=== PATIENT | female | born 1935 | race Two or more races ===

== ENCOUNTER 2024-12-18 06:56 | Inpatient (IN) | payer MEDICAID, SELFPAY ==
[2024-12-18] VITALS (14 sets, daily range): BP systolic 122–162; BP diastolic 51–108; PULSE 120–139; RESP 21–33; TEMP 36.1–37.2; O2SAT 72–97; BMI 27.3
--- NOTE | 2024-12-18 07:19 | XR_ITS ---
Examination: AP chest single view TECHNIQUE: AP portable upright chest single view Exam date and time: Every 2024 0736 hours INDICATIONS: Chest pain today. FINDINGS: Mild heart failure Moderate enlargement cardiac contour Prominent vascular congestion Early perihilar edema Consider superimposed pneumonia at the lung bases Significant right pleural effusion IMPRESSION: Mild heart failure Consider superimposed pneumonia at the lung bases
--- NOTE | 2024-12-18 07:19 | EKG_ITS ---
[facility] Test Date: 2024-12-18 Pat Name: MELVIN GASPAR Department: Room: - Gender: Female Assistant Administrator: : [id number] Requested By: Dano Kramer (CHANTAL) Order Number: [id number] Reading MD: aDno Kramer ([employer]) Measurements Intervals [place] Rate: 137 P: CO: QRS: 84 QRSD: 91 T: 74 QT: 318 QTc: 482 Interpretive Statements ATRIAL FLUTTER/TACHYCARDIA WITH RAPID VENTRICULAR RESPONSE MODERATE ST DEPRESSION [0.05+ mV ST DEPRESSION] No previous ECG available for comparison /store/S0/[id number]/[id number].pdf
--- NOTE | 2024-12-18 07:34 | EDNOTE_ITS ---
ED Weakness RME/HPI General Chief complaint: General Adult/Misc Complain Stated complaint: CHEST PAIN Time Seen by Provider: 12/18/24 07:29 Arrival date/time: 12/18/24 06:56 RME / HPI RME / HPI Narrative: 89 year old female presents to the ED for evaluation of feeling unwell. Reports feeling dizzy, I can't see well , and generalized weakness beginning at 06:30 AM today. Daughter at bedside reports patient does use nocturnal supplemental oxygen, setting unknown, and a nebulizer machine once everyday. Daughter denies increase in nebulizer usage. Patient denies any fevers, chills, sweats, headache, cough, abdominal pain, vomiting, diarrhea, or urinary symptoms. Related Data Allergies Allergy/AdvReac Type Severity Reaction Status Date / Time No Known Allergies Allergy Verified 12/18/24 06:58 Review of Systems Review of Systems Narrative Review of Systems: Gen: No fever, no chills, +feeling unwell, +generalized weakness EYES: No discharge, + I cant see well , no pain HEENT: No ear pain, no congestion, no sore throat PULM: no shortness of breath, no cough, no congestion CV: No chest pain, no palpitations, no chest tightness GI: No nausea, no vomiting, no diarrhea, no pain, no constipation : No frequency, no urgency,? no dysuria Musc/skel: No joint pain, no back pain Skin: No rash, no ecchymosis, no lesions Neuro: No headache Past Medical History Past Medical History CARDIAC: Positive Cardiac Disorders, Cardiac Arrhythmia, Atrial Fibrillation, Congestive Heart Failure and Hypertension RESPIRATORY: Positive Respiratory Disorders, Chronic Obstructive Pulmonary Disease (COPD) and Sleep Apnea GENITOURINARY: Positive Renal Disease ENDOCRINE: Positive Diabetes Mellitus Type 2 Social History SMOKING STATUS: Never smoker ED Exam Narrative Physical exam: GENERAL APPEARANCE: AxOx4, tachypneic, shallow breaths, saturating 87-88% on room air. HEENT: NC, AT. MMM. EOMI, clear conjunctiva, oropharynx clear. NECK: Supple without lymphadenopathy. No stiffness or restricted ROM. HEART: Normal rate and regular rhythm, normal S1/S1, no m/r/g LUNGS: Diminished breath sounds, lobo and expiratory wheezing, patient taking shallow breaths, tachypneic ABDOMEN: Soft, nontender, nondistended with good bowel sounds heard. BACK: No midline C/T/L spine pain or deformity, No CVAT, no obvious deformity. EXTREMITIES: Without cyanosis, clubbing or edema. MUSCULOSKELETAL: FROM of all major joints, no chest tenderness NEUROLOGICAL: Grossly nonfocal. Alert and oriented, moving all 4 extremities. CN not formally tested but appear grossly intact. Skin: Warm and dry without any rash. Course Course Course Narrative: chest xray ordered to help determine etiology of chest pain. Quality Measures none Orders Category Date Time Status COVID-19 Screening Questionnaire NOW Care 12/18/24 11:54 Active Track Man NOW Care 12/18/24 07:19 Active Decision to Admit X1 Care 12/18/24 11:54 Active EKG (ED ONLY) *Do not use* NOW Care 12/18/24 07:19 Completed Insert IV NOW Care 12/18/24 07:19 Active EKG (ED Only) Stat Exams 12/18/24 07:19 Draft XR chest 1V portable Stat Exams 12/18/24 07:19 Completed BNP [B-Type Natriuretic Peptide] Stat Lab 12/18/24 10:50 Completed Blood Culture (Lab) Stat Lab 12/18/24 12:05 Received CBC Stat Lab 12/18/24 10:50 Completed CMP [Comprehensive Metabolic Panel] Stat Lab 12/18/24 10:50 Completed Troponin I Stat Lab 12/18/24 10:50 Completed ALBUTEROL RT 0.5ml [Proventil Rt 0.5ml] Med 12/18/24 07:30 Discontinued 10 mg INH X1 ONE Ipratropium [place] Rt Zhane [Atrovent Rt Zhane] Med 12/18/24 07:30 Discontinued 1 mg INH X1 ONE Sodium Chloride Rt Zhane 0.9% [NS Rt Zhane 0.9%] Med 12/18/24 07:30 Active 3 ml INH PRN PRN cefTRIAXone/D5w 1gm IV premix [Rocephin/D5w 1gm IV Med 12/18/24 11:53 Discontinued premix] 50 ml IV X1 predniSONE Med 12/18/24 07:30 Discontinued 60 mg PO X1 ONE Vital Signs Vital signs: Vital Signs Temperature 98.1 F 12/18/24 07:22 Pulse Rate 138 H 12/18/24 07:22 Respiratory Rate 24 H 12/18/24 07:22 Blood Pressure 162/92 H 12/18/24 07:22 Pulse Oximetry (%) 72 L 12/18/24 07:22 Oxygen Delivery Method Room Air 12/18/24 07:22 Pulse ox is 72% on room air which is hypoxic. Weakness MDM Narrative MDM Narrative:: Anne Houser am scribing for and in the presence of Dr. Stephenson. Patient data External records reviewed:: [facility] previous records (Per EMR, no previous visits for review ) Clinical information provided by:: patient and family (Daughter adds to hpi) Social determinants that could affect healthcare access:: none Patient has the following chronic illnesses:: HTN, DM, COPD How is presenting disease/condition affected by chronic disease/condition?: exacerbated by Evaluation data The following diagnostics were reviewed and interpreted by me:: lab results, radiology exam(s) and EKG tracing(s) Lab and/or radiology exams considered but not ordered:: None Interpretation Summary: Ordering Physician: Nia RAMIREZ)Dano NP Date of Service: 12/18/24 Procedure(s): XR chest 1V portable Accession Number(s): [id number] cc: Nia RAMIREZ),Dano CORNEJO; Michael Olvera MD; NO PRIMARY/FAMILY,PHYSICIAN~ Examination: AP chest single view TECHNIQUE: AP portable upright chest single view Exam date and time: Every 2024 hours INDICATIONS: Chest pain today. FINDINGS: Mild heart failure Moderate enlargement cardiac contour Prominent vascular congestion Early perihilar edema Consider superimposed pneumonia at the lung bases Significant right pleural effusion IMPRESSION: Mild heart failure Consider superimposed pneumonia at the lung bases Dictated By: Michael Olvera MD Signed By: <Electronically signed by Michael Olvera MD in OV> 12/18/24 1211 Medications / Prescriptions Medications or Prescriptions considered but not ordered:: None Medication administrations:: Medication Administration History Acetaminophen (Acetaminophen 325 Mg Tablet) 650 mg PO Q6H PRN PRN Reason: Fever >101.5 Stop: 01/17/25 12:55 Acetaminophen (Acetaminophen 325 Mg Tablet) 650 mg PO Q6H PRN PRN Reason: PAIN SCALE 1-3 (mild Stop: 01/17/25 12:55 Dextrose (Dextrose 50%-Water Inj 50 Ml Syringe) 25 ml IV Q15MIN PRN PRN Reason: BG 50-70 responsive npo pt Stop: 01/17/25 13:12 Dextrose (Dextrose 50%-Water Inj 50 Ml Syringe) 50 ml IV Q15MIN PRN PRN Reason: BG <50 OR BG <70 & pt unresponsive Stop: 01/17/25 13:12 Glucagon (Glucagon Inj 1 Mg Vial) 1 mg IM Q15MIN PRN PRN Reason: BG <70, and no IV access Heparin Sodium (Porcine) (Heparin Sod Inj 5000 Unit/Ml Vial) 5,000 unit SC Q12HR SARA Stop: 01/01/25 13:14 Ceftriaxone Sodium/Dextrose (Rocephin/D5w 1gm Iv Premix) 50 mls @ 100 mls/hr IV QDAY SARA Stop: 12/26/24 08:59 Last Admin: 12/18/24 13:11 Dose: Not Given Documented By: JACKIE Non-Admin Reason: Duplicate Medication on eMAR Azithromycin 500 mg/ Sodium (Chloride) 250 mls @ 250 mls/hr IV QDAY SARA Stop: 12/26/24 08:59 Azithromycin 500 mg/ Sodium (Chloride) 250 mls @ 250 mls/hr IV X1 ONE Stop: 12/18/24 14:14 Magnesium Hydroxide (Milk Of Magnesia Susp 30 Ml Udc) 30 ml PO QDAY PRN; Protocol PRN Reason: CONSTIPATION Stop: 01/17/25 12:55 Ondansetron HCl (Ondansetron Inj 2 Mg/Ml Inj 2 Ml) 4 mg IV Q6H PRN; Protocol PRN Reason: NAUSEA OR VOMITING Stop: 01/17/25 12:55 Sodium Chloride (Sodium Chloride Rt Zhane 0.9% 3 Ml Nebu) 3 ml INH PRN PRN PRN Reason: SOLN Stop: 01/17/25 07:29 Discontinued Medications Albuterol (Albuterol Rt 2.5 Mg/0.5 Ml Nebu) 10 mg INH X1 ONE Stop: 12/18/24 07:31 Last Admin: 12/18/24 07:53 Dose: 10 mg Documented By: NEISHA Ceftriaxone Sodium/Dextrose (Rocephin/D5w 1gm Iv Premix) 50 mls @ 100 mls/hr IV X1 ONE Stop: 12/18/24 12:22 Last Admin: 12/18/24 13:08 Dose: 100 mls/hr Documented By: JACKIE Ipratropium [place] (Ipratropium Rt 0.5 Mg/ 2.5 Ml Nebu) 1 mg INH X1 ONE Stop: 12/18/24 07:31 Last Admin: 12/18/24 07:54 Dose: 1 mg Documented By: NEISHA Prednisone (Prednisone 20 Mg Tablet) 60 mg PO X1 ONE Stop: 12/18/24 07:31 Last Admin: 12/18/24 07:44 Dose: 60 mg Documented By: JACKIE See above Consultations Consultation(s) initiated? (list below): Yes Consultation #1 (Physician, Specialty, Details): I spoke with hospitalist Dr. Aguila. Discussed patients PMHx, HPI, ED course, exam findings, labs, and radiology results. The hospitalist agree to accept the patient for admission. Time: 11:50 Diagnosis Weakness Differential Diagnosis: acute myocardial infarction, anemia, hypoglycemia, hypothyroidism, sepsis and dehydration Most likely diagnosis given after review of the tests above:: COPD exacerbation Pleural effusion Acute bronchitis Admission Indicated Admission indicated?: indicated Admission Request Was there a request for admission?: Yes Admission Attestation Admission request attestation: Discussed case with [] from Hospitalist service regarding admission. Discussed patients ED course, exam findings, labs, and radiology results. The Hospitalist [agrees,declines] to accept the patient for admission. Disposition Plan Disposition Plan: Admit Discharge Plan Plan Patient Disposition: Admit Acute Care w/in Hospital Problem List Clinical Impression: COPD exacerbation, Pleural effusion, Acute bronchitis
[2024-12-18] MEDS: predniSONE 20 MG TABLET 60 MG PO (07:44)
[2024-12-18] MEDS: ALBUTEROL RT 2.5 MG/0.5 ML NEBU 10 MG INH (07:53)
[2024-12-18] MEDS: IPRATROPIUM RT 0.5 MG/ 2.5 ML NEBU 1 MG INH (07:54)
[2024-12-18 11:07] LABS: Basophils % (Auto) 0 % (0-2.5); Eosinophils % (Auto) 0 % (0-10); Hematocrit 39.1 % (36.0-46.0); Hemoglobin 12.7 g/dL (12.0-16.0); Immature Granulocytes % (Auto) 1 % (0-0); Immature Granulocytes Auto 0.05 Thou/mm3 (0.00-0.00); Lymphocytes # (Auto) 0.7 Thou/mm3 (1.0-4.8); Lymphocytes % (Auto) 9 % (10-50); Mean Corpuscular HGB Conc 32.5 g/dl (31.0-37.0); Mean Corpuscular Hemoglobin 32.2 pg (25.0-35.0); Mean Corpuscular Volume 99 fL (80-100); Monocytes # (Auto) 0.3 Thou/mm3 (0.0-0.8); Monocytes % (Auto) 5 % (0-12); Neutrophils # (Auto) 5.8 Thou/mm3 (1.8-7.7); Neutrophils % (Auto) 85 % (37-80); Nucleated Red Blood Cell # 0.02 Thou/mm3 (0.00-0.00); Nucleated Red Blood Cell % 0 /100 WBC (0); Platelet Count 263 Thou/mm3 (140-440); RDW Standard Deviation 54.5 fL (36.4-46.3); Red Blood Count 3.95 Miln/mm3 (4.00-5.20); White Blood Count 6.9 Thou/mm3 (3.6-11.0)
[2024-12-18 11:22] LABS: B-Type Natriuretic Peptide 329 pg/mL (0-100)
[2024-12-18 11:26] LABS: Alanine Aminotransferase 26 U/L (10-49); Albumin, Serum 4.1 gm/dL (3.4-4.8); Albumin/Globulin Ratio 1.4 (1.2-2.2); Alkaline Phosphatase 64 U/L (46-116); Anion Gap 7 (7-16); Aspartate Amino Transferase 26 U/L (0-34); BUN/Creatinine Ratio 23 Ratio (12-20); Bilirubin,Total 0.4 mg/dL (0.3-1.2); Blood Urea Nitrogen 21 mg/dL (9-23); Calcium 8.9 mg/dL (8.3-10.6); Calcium (Corrected) 8.9 mg/dL (8.5-10.1); Carbon Dioxide 35.6 mMol/L (20.0-31.0); Chloride 103 mMol/L (98-107); Creatinine (Component) 0.9 mg/dL (0.6-1.3); Estimated Creatinine Clearance 49.4 mL/min (>60); Osmolality,Calculated 290 (275-295); Potassium 4.4 mMol/L (3.4-5.1); Sodium 146 mMol/L (136-145); Total Protein 7.1 gm/dL (5.7-8.2); Troponin I < 0.020 ng/mL (0.0-0.045); eGFR > 60 See Note
[2024-12-18 11:29] LABS: Glucose 49 mg/dL (74-106)
--- NOTE | 2024-12-18 11:36 | PC.NURSE ---
gave pt orange juice per doctor and lab called for blood glucose low. also gave snadwich and chips. pt is alert and ordeted and sitting up talking to family. no distress noted. pt o2 increased to 4l nc. o2 sating 93%
--- NOTE | 2024-12-18 13:00 | ECHO_ITS ---
Transthoracic Echo Report Ht (in): 68 Wt (lb): 180 Exam Location: Echo Lab Status: Inpatient Bag Valver: Khadijah Vyas Indications: Procedure Performed: BP: 100 / 70 HR: 133 Technical Quality: Technically difficult study MEASUREMENTS (Male / Female) Normal Values 2D ECHO LV Diastolic Diameter PLAX 5.4 cm 4.2 - 5.9 / 3.9 - 5.3 cm LV Systolic Diameter PLAX 3.8 cm IVS Diastolic Thickness 1.0 cm 0.6 - 1.0 / 0.6 - 0.9 cm LVPW Diastolic Thickness 1.1 cm 0.6 - 1.0 / 0.6 - 0.9 cm LV Relative Wall Thickness 0.4 LVOT Diameter 1.7 cm M-MODE Aortic Root Diameter MM 2.6 cm AV Cusp Separation MM 1.6 cm DOPPLER AV Peak Velocity 123.0 cm/s AV Peak Gradient 6.1 mmHg AV Mean Gradient 3.0 mmHg AV Velocity Time Integral 21.1 cm LVOT Peak Velocity 74.6 cm/s LVOT Peak Gradient 2.2 mmHg LVOT Velocity Time Integral 14.6 cm LVOT Cardiac Index 2208.5 cm?/min?m? AV Area Cont Eq vti 1.6 cm? AV Area Cont Eq pk 1.4 cm? MV Area PHT 5.6 cm? MR Peak Velocity 289.0 cm/s MR Peak Gradient 33.4 mmHg Mitral E Point Velocity 68.4 cm/s LV E' Lateral Velocity 11.3 cm/s Mitral E to LV E' Lateral Ratio 6.1 LV E' Septal Velocity 7.6 cm/s Mitral E to LV E' Septal Ratio 9.0 TR Peak Velocity 252.7 cm/s TR Peak Gradient 25.5 mmHg PV Peak Velocity 111.0 cm/s PV Peak Gradient 4.9 mmHg FINDINGS Left Ventricle Normal left ventricular size and wall thickness, Dyskinesia wall motion. Can not comment on LV EF% Right Ventricle The right ventricle is normal in size.the right ventricular systolic function is moderately decreased. The estimated right ventricular systolic pressure, 38 mmHg. RAP 15. Left Atrium The left atrial cavity size is mildly increased. Right Atrium The right atrium is normal by two-dimensional imaging, color flow and Doppler imaging with no structural abnormalities, no thrombus formation present. Atrial Septum The interatrial septum appears normal with no evidence of a shunt. Aorta The aorta is normal by two-dimensional, color flow and Doppler interrogation. Mitral Valve The mitral valve is normal by two-dimensional, color flow and Doppler interrogation. There is moderate mitral valve regurgitation, stenosis or prolapse. Aortic Valve The aortic valve is trileaflet and normal by two-dimensional, color flow and Doppler interrogation. There is no significant aortic valve regurgitation. Tricuspid Valve The tricuspid valve is normal by two-dimensional, color flow and Doppler interrogation. There is mild tricuspid valve regurgitation. Pulmonic Valve The pulmonic valve is not well visualized. There is no significant pulmonic valve regurgitation. Vessels Dilated inferior vena cava. Pericardium The pericardium is normal by two-dimensional imaging. There is no significant pericardial effusion. CONCLUSIONS indicaiton: SOB, Concern for HF Poor quality images. Normal LV size and wall thickness, Normal LVEF 50-55%. Diastolic dysfunction present but cannot grade to arrhythymia. Septal and lateral wall dysynchrony noted. RV not visulaized well. RV appears normal in size but cannot comment on function. Estimated RVSP, 38 mmHg. RAP 15. Atleast mild PAH Moderate biatrial dilatation. Dilated IVC. Moderate MR. Mild TR. Mild AV sclerosis without stenosis. Rasta Corona (Electronically Signed) Final Date: 20 December 2024 08:01
[2024-12-18] MEDS: cefTRIAXone/D5w 1gm IV premix 50 ML IV (13:08)
--- NOTE | 2024-12-18 13:08 | XR_ITS ---
Examination: CTA chest with intravenous contrast 2-D reconstructions 3-D reconstructions, vascular Date and time of exam: December 18, 2024 at 2:27 PM INDICATIONS: Shortness breath chest pain today, clinical diagnosis pulmonary embolus CTDI: vol (mGy) 26.5 DLP: (mGycm) 373 Technique: Multiple axial sections of the thorax have been obtained. 3 mm slice thickness, from below the hemidiaphragms to above the apices of the lungs. Mediastinal and lung density settings have been obtained. 2-D sagittal and coronal reconstructions. 3-D angiographic renderings, 3-D volume renderings, 3D post processing, vascular maximum intensity projections obtained. Contrast administered is 100 cc Isovue-370 intravenous. Low dose protocols were performed. One or more of the following dose reduction techniques were used; automated exposure control, adjustment of the mA and/or KV according to patient size, use of iterative reconstruction technique. Findings: No thoracic aortic aneurysmal dilatation or dissection Pulmonary artery segments are not enlarged There are filling defects in the descending branches left pulmonary artery, for instance axial image 89 Mild enlargement cardiac contour Significant vascular congestion Atelectasis versus pneumonia at the lung bases with small to moderate bilateral pleural effusions Liver is irregular in contour Moderate osteopenia IMPRESSION: Findings are consistent with pulmonary artery emboli lower lobe left pulmonary artery branches Atelectasis versus pneumonia at the lung bases Mild to moderate bilateral pleural effusions
[2024-12-18 14:10] LABS: Base Excess 12 (-3-3); HCO3 39 mEq/L (20-26); Inspired O2, VO2 Liters 4 L/min; O2 Saturation 86 % (91-98); PCO2 62 mmHg (32.0-48.0); pH, Arterial 7.41 (7.35-7.45)
[2024-12-18 14:15] LABS: PO2 52 mmHg (83-108); Puncture Site Right Radial
[2024-12-18 14:16] LABS: Allen Test Not Performed
--- NOTE | 2024-12-18 14:17 | PC.NURSE ---
pt going to ct scan
[2024-12-18 14:35] LABS: Glucose Estimated Average 169 mg/dL (80-131); Hemoglobin A1C 7.5 % Hgb (4.8-6.0)
--- NOTE | 2024-12-18 14:43 | ESHP_ITS ---
Documentation for date of: 12/18/24 HPI History of Present Illness Chief complaint: Dizziness and shortness of breath History of present illness: 89-year-old female with past medical history of congestive heart failure, atrial fibrillation on Eliquis, COPD, type 2 diabetes, hyperlipidemia presenting to the ED for dizziness and shortness of breath which has been ongoing for the past 3 days. History taken by patient's daughter, Carrie, who states that the patient has been progressively complaining of shortness of breath and she was acutely dizzy this afternoon (10/17). Per daughter, patient usually stays with other daughter in [place] but for the past 2 months has been living with her in [place]. Patient has multiple heart, lung, kidney disorders and diabetes according to her daughter but she is unsure exactly what type of diagnosis she has. Patient usually is able to ambulate at home using a walker but she has been more tired recently and has been less active. Patient's daughter denies that the patient has had any fever/chills but did not necessarily check temperature; denies having any sick contacts but also states that the patient has been eating pretty well. Other than coming to [place] from [place] 2 months ago, the patient traveled to [place] with car in May. No significant surgeries recently and the patient does not have any history of cancers. Medical history: As listed Surgical history: Patient has a remote surgical history when she was young, does not remember procedure Allergies: NKDA Medications: Lasix 40 mg p.o. twice daily, Eliquis 5 mg p.o. twice daily, losartan 50 mg p.o., diltiazem SR 120 mg, aspirin 81 mg, pravastatin 20 mg, long-acting insulin 25 units at bedtime Family history: Noncontributory Social history: Denies ever smoking tobacco, alcohol use or illicit drug use. Patient normally ambulates/daily living activities intact ROS: All 12 systems assessed and the patient denies unless otherwise stated in HPI In the ED, patient presented hypertensive, tachycardic (138), tachypneic (RR 24), afebrile and satting 72 L on room air. Patient was quickly started on supplemental oxygenation and saturation increased to 91. Fingerstick blood glucose of 225 but initially glucose was 49. Other pertinent lab findings included sodium 146, EGFR greater than 60, A1c of 7.5%, troponin within normal limits, BNP 329. ABG showed pH of 7.41, pCO2 62, pO2 52, bicarb of 39. Chest x- ray showed mild heart failure pattern along with possible superimposed pneumonia at the lung bases and prominent vascular congestion with right pleural effusion. EKG showed sinus tachycardia with no concerning ST changes. And CT of the chest shows pulmonary artery emboli in the lower lobe left lobe with atelectasis and mild to moderate bilateral pleural effusions. Patient will be admitted for treatment of pulmonary embolism along with thoracentesis for pleural effusions and IV antibiotics for possible superimposed pneumonia. Exam Vital Signs Temp Pulse Resp BP Pulse Ox O2 Del Method O2 Flow Rate 98.9 F 134 H 22 H 130/105 H 91 L Nasal Cannula 4 12/18/24 14:23 12/18/24 14:23 12/18/24 14:23 12/18/24 14:23 12/18/24 14:23 12/18/24 14:23 12/18/24 14:23 Narrative Exam Physical Exam: GENERAL: Awake, answering questions appropriately, appears stated age HEENT: NC/AT. Moist mucosa. PERRLA/EOMI. CARDIO: Heart RRR, no obvious murmurs, no JVD. PULM: No coughing but appears visibly SOB with 6L NC O2. Lungs have reduced breath sounds at bases but otherwise CTA B/L GI: Abdomen soft but distended, NT, +BS. SKIN/MSK/EXT: No wounds/discoloration/rashes/edema/amputations. +Pedal pulses present B/L. NEURO: Oriented x3, Moves extremities x4 and no focal neurological deficits. Results: Labs 12/18/24 10:50 12/18/24 10:50 Labs: Short CBC 12/18/24 Range/Units 10:50 WBC 6.9 (3.6-11.0) Thou/mm3 Hgb 12.7 (12.0-16.0) g/dL Hct 39.1 (36.0-46.0) % Plt Count 263 (140-440) Thou/mm3 BMP 12/18/24 10:50 Sodium 146 H Potassium 4.4 Chloride 103 Carbon Dioxide 35.6 H BUN 21 Creatinine 0.9 Glucose 49 L* Calcium 8.9 Cardiac Enzymes 12/18/24 Range/Units 10:50 Troponin I < 0.020 (0.0-0.045) ng/mL Liver Function 12/18/24 Range/Units 10:50 Total Bilirubin 0.4 (0.3-1.2) mg/dL AST 26 (0-34) U/L ALT 26 (10-49) U/L Alkaline Phosphatase 64 (46-116) U/L Albumin 4.1 (3.4-4.8) gm/dL ABG Interpretation ABG results: 12/18/24 14:07 ABG pH 7.41 ABG pCO2 62 H ABG pO2 52 L* ABG HCO3 39 H ABG O2 Saturation 86 L ABG Base Excess 12 H Quality Measures Quality Measures none Advance care planning discussed with:: patient Medications Home Medications and Allergies Home Medications ?Medication ?Instructions ?Recorded ?Confirmed ?Type apixaban 2.5 mg tablet (Eliquis) 2.5 mg PO BID 5 12/18/24 History aspirin 81 mg capsule 81 mg PO QDAY 12/18/2412/18 History diltiazem HCl 120 mg 120 mg PO BID 12/18/2412/18 History capsule,extended release 24 hr (Cardizem CD) furosemide 40 mg tablet (Lasix) 40 mg PO BID 12/18/24 12/18/24 History gabapentin 300 mg capsule 300 mg PO BID 12/18/2412/18 History losartan 50 mg tablet (Cozaar) 50 mg PO BID 12/18/24 0 12/18/24 History pravastatin 20 mg tablet 20 mg PO QDAY 12/18/2412/18 History Allergies Allergy/AdvReac Type Severity Reaction Status Date / Time No Known Allergies Allergy Verified 12/18/24 06:58 Visit Medications Acetaminophen (Acetaminophen 325 Mg Tablet) 650 mg PO Q6H PRN PRN Reason: Fever >101.5 Stop: 01/17/25 12:55 Acetaminophen (Acetaminophen 325 Mg Tablet) 650 mg PO Q6H PRN PRN Reason: PAIN SCALE 1-3 (mild Stop: 01/17/25 12:55 Apixaban (Apixaban 2.5 Mg Tablet) 5 mg PO BID SARA Stop: 01/17/25 20:59 Aspirin (Aspirin Ec 81 Mg Tabec) 81 mg PO QDAY SARA Stop: 01/18/25 08:59 Dextrose (Dextrose 50%-Water Inj 50 Ml Syringe) 25 ml IV Q15MIN PRN PRN Reason: BG 50-70 responsive npo pt Stop: 01/17/25 13:12 Dextrose (Dextrose 50%-Water Inj 50 Ml Syringe) 50 ml IV Q15MIN PRN PRN Reason: BG <50 OR BG <70 & pt unresponsive Stop: 01/17/25 13:12 Glucagon (Glucagon Inj 1 Mg Vial) 1 mg IM Q15MIN PRN PRN Reason: BG <70, and no IV access Ceftriaxone Sodium/Dextrose (Rocephin/D5w 1gm Iv Premix) 50 mls @ 100 mls/hr IV QDAY SARA Stop: 12/26/24 08:59 Last Admin: 12/18/24 13:11 Dose: Not Given Azithromycin 500 mg/ Sodium (Chloride) 250 mls @ 250 mls/hr IV QDAY [facility] Stop: 12/26/24 08:59 Insulin Glargine (Insulin Glargine (Lantus) 5 Unit/0.05 Ml (Per 5 Units)) 10 unit SC HS [facility] Stop: 01/17/25 20:59 Insulin Human Lispro (Insulin Lispro (Admelog) 1 Unit/0.01 Ml Unit) 3 unit SC TIDWM [facility] Stop: 01/17/25 17:29 Insulin Human Lispro (Insulin Lispro (Admelog) 1 Unit/0.01 Ml Unit) 0 unit SC AC [facility]; Protocol Stop: 01/17/25 16:59 Levalbuterol HCl (Levalbuterol Rt 0.63 Mg/3 Ml Nebu) 0.63 mg INH Q8HR [facility] Stop: 01/17/25 21:59 Losartan Potassium (Losartan Potassium 25 Mg Tablet) 50 mg PO BID SARA Stop: 01/17/25 20:59 Magnesium Hydroxide (Milk Of Magnesia Susp 30 Ml Udc) 30 ml PO QDAY PRN; Protocol PRN Reason: CONSTIPATION Stop: 01/17/25 12:55 Ondansetron HCl (Ondansetron Inj 2 Mg/Ml Inj 2 Ml) 4 mg IV Q6H PRN; Protocol PRN Reason: NAUSEA OR VOMITING Stop: 01/17/25 12:55 Pravastatin Sodium (Pravastatin Sodium 10 Mg Tablet) 20 mg PO HS [facility] Stop: 01/17/25 20:59 Sodium Chloride (Sodium Chloride Rt Zhane 0.9% 3 Ml Nebu) 3 ml INH PRN PRN PRN Reason: SOLN Stop: 01/17/25 07:29 Discontinued Medications Albuterol (Albuterol Rt 2.5 Mg/0.5 Ml Nebu) 10 mg INH X1 ONE Stop: 12/18/24 07:31 Last Admin: 12/18/24 07:53 Dose: 10 mg Heparin Sodium (Porcine) (Heparin Sod Inj 5000 Unit/Ml Vial) 5,000 unit SC Q12HR [facility]ARA Stop: 01/01/25 13:14 Ceftriaxone Sodium/Dextrose (Rocephin/D5w 1gm Iv Premix) 50 mls @ 100 mls/hr IV X1 ONE Stop: 12/18/24 12:22 Last Infusion: 12/18/24 14:31 Dose: Infused Azithromycin 500 mg/ Sodium (Chloride) 250 mls @ 250 mls/hr IV X1 ONE Stop: 12/18/24 14:14 Ipratropium [place] (Ipratropium Rt 0.5 Mg/ 2.5 Ml Nebu) 1 mg INH X1 ONE Stop: 12/18/24 07:31 Last Admin: 12/18/24 07:54 Dose: 1 mg Levalbuterol HCl (Levalbuterol Rt 0.63 Mg/3 Ml Nebu) 0.63 mg INH Q6HR [facility] Stop: 01/17/25 17:59 Prednisone (Prednisone 20 Mg Tablet) 60 mg PO X1 ONE Stop: 12/18/24 07:31 Last Admin: 12/18/24 07:44 Dose: 60 mg Sodium Chloride (Sodium Chloride Rt 10% 15 Ml Nebu) 5 ml INH X1 ONE Stop: 12/18/24 14:31 Assessment & Plan Plan 89-year-old female with past medical history of congestive heart failure, atrial fibrillation on Eliquis, COPD, type 2 diabetes, hyperlipidemia presenting to the ED for dizziness and shortness of breath which has been ongoing for the past 3 days will be admitted for treatment of pulmonary embolism along with thoracentesis for pleural effusions and IV antibiotics for possible superimposed pneumonia. #Pulmonary Embolism #Sinus tachycardia likely 2/2 to PE, Pleural effusion and likely PNA Patient presented to the ED with shortness of breath and dizziness which has been ongoing for about 3 days; patient's family denies that she has had fever/chills or any sick contacts In the ED, patient was severely hypoxic requiring supplemental oxygenation with nasal cannula Well's Score of 9.0?points High risk group: 40.6% chance of PE in an ED population. Another study assigned scores > 4 as ?PE Likely? and had a 28% incidence of PE. On chest x-ray there are signs of mild heart failure along with superimposed bilateral pneumonia at the bases Bedside echo evaluation showed good ejection fraction but dilated right atrium along with dilated IVC open (roughly 2 cm without changes with inspiration) EKG showed sinus tachycardia without any concerning ST changes and troponin within normal limits BNP mildly elevated around 300 CT of the chest confirmed pulmonary artery emboli in the lower lobe left lobe with atelectasis and mild to moderate bilateral pleural effusions Plan: Heparin drip Follow-up on PT/PTT #Pleural effusion, RT #Bilateral pneumonia #History of COPD #History of CHF COVID-negative As stated above patient has the following findings on imaging Plan: Start patient on IV ceftriaxone azithromycin Blood and sputum culture sent Levalbuterol every 8 hour breathing treatments Bedside influenza A/B sent, RSV, cocci, urine Legionella Holding off on IV diuretics at this time, will reassess US Thoracentesis with pleural analysis sent out ECHO ordered Daily weights Strict I/Os #Insulin-dependent type 2 diabetes A1c of 7.5 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 as noted in HPI (renal disease?) GFR and Cr are stable Plan: Started patient on long-acting 10 units glargine 3 units lispro Sliding scale #History of atrial fibrillation #Hyperlipidemia #Hypertension Chronic medical history Plan: Restarted losartan 50 mg, diltiazem 90 ER (SR not in formulary) Restarted pravastatin 20 mg, aspirin 81 mg Holding Eliquis 5mg po BID Hospital Management: Lines: PIV Diet: N.p.o., pending thoracentesis Bowel: Zofran GI prophylaxis: Protonix DVT prophylaxis: On heparin drip Dispo: Treatment for pulmonary embolism and thoracentesis for pleural effusion Code: Full Patient seen and examined with attending Dr. Mingo Negro, PGY-1 Attending Provider Attestation/Addendum I have discussed and was present for the essential components of the history, physical examination, diagnosis, and treatment plan with the resident. I agree with the patient's care as documented by the resident and amended herein by me. Gentry Aguila DO. Although this document has been carefully reviewed, there may still be some phonetic and other typographical errors. These errors are purely grammatical due to imperfections in the software program and should not be construed in any way to compromise the substance of the patient's medical care during this visit.
[2024-12-18 14:50] LABS: LDH (Lactate Dehydrogenase) 207 U/L (120-246); Procalcitonin 0.06 ng/ml (0.0-0.49)
--- NOTE | 2024-12-18 14:52 | PC.NURSE ---
report given to nurse nitish room 353. pt will get flu test done before going to floor. pt stable for transport.
--- NOTE | 2024-12-18 14:52 | PC.SS ---
Initial assessment: this is 89 year old female here for PNA and hypoglycemia. Patient out of room and information received by patient's daughter Lupe Rehman. Per patient's daughter, informs the patient resides at home with her and family. The patient originally lives in [place] with family however has been temporarily staying with daughter Lupe in [place] for the last two months. Per Lupe, the patient was ambulating independently and with assistance from a cane at home at times. Patient has home CPAP machine used at night per daughter, no use of day O2. Patient's daughter reports primary care provided being unknown at the patient was living in [place]. Per daughter, she will be the emergency contact for the patient during this time as she is local. Patient's daughter informs, the plan is for patient to return home once medically stable and family is able to provide transportation home. No current needs identified at this time. senior manager creative services to follow up on discharge planning needs. D/c plan: Home Next of kin: daughterLupe
--- NOTE | 2024-12-18 15:53 | PC.NURSE ---
Report recieved from Earlene ELLIOTT RN. Pt. went to CT scan, pt. coming to Tele. Possible heparin gtt. Vitals stable but HR Aflutter/afib in 130s. Dr. perez.
[2024-12-18] MEDS: AZITHROMYCIN INJ 500 MG in SODIUM CHLORIDE 0.9% 250 ML 250 ML 250 MG IV (15:54)
--- NOTE | 2024-12-18 15:57 | PC.NURSE ---
pt came back to ed due to pt was upgraded to tele floor. report then given to kevin dunn. bed 260.
[2024-12-18] MEDS: PANTOPRAZOLE INJ 40 MG VIAL IV (17:42)
[2024-12-18] MEDS: HEPARIN SOD INJ 5000 UNIT/ML VIAL 6550 UNIT IV (17:44)
[2024-12-18] MEDS: Heparin/D5w 25K 250 ML Ivpb 25,000 UNIT/250 ML BAG 14.696 UNIT IV (17:45)
[2024-12-18] MEDS: INSULIN LISPRO (AdmeLOG) 1 UNIT/0.01 ML UNIT SC (17:45)
--- NOTE | 2024-12-18 18:39 | PC.NURSE ---
Dr. Aguila made aware that pt. HR still in the 130s and when reviewing meds Diltiazem is ordered but only for AM and home dose is 120 mg and dose ordered here is [address] Aguila due to large right plueral effusion and PEs, HR is expected to be elevated. change diltiazem order to 90 mg PO BID.
[2024-12-18 19:35] LABS: Base Excess 9 (-3-3); HCO3 37 mEq/L (20-26); Inspired Oxygen, FIO2 21 %; O2 Saturation 95 % (91-98); PCO2 62 mmHg (32.0-48.0); PO2 76 mmHg (83-108); pH, Arterial 7.38 (7.35-7.45)
[2024-12-18 19:38] LABS: Allen Test Performed/OK; Puncture Site Left Radial
[2024-12-18] MEDS: PRAVASTATIN SODIUM 10 MG TABLET 20 MG PO (21:33)
[2024-12-18] MEDS: LOSARTAN POTASSIUM 25 MG TABLET 50 MG PO (21:33)
[2024-12-18] MEDS: DILTIAZEM CD 180 MG CAPCR PO (21:44)
[2024-12-18] MEDS: INSULIN GLARGINE (Lantus) 5 UNIT/0.05 ML (PER 5 UNITS) 10 UNIT SC (21:47)
[2024-12-18] MEDS: LEVALBUTEROL RT 0.63 MG/3 ML NEBU INH (22:30)
[2024-12-18] MEDS: MELATONIN 3 MG TABLET 6 MG PO (23:37)
[2024-12-19] VITALS (14 sets, daily range): BP systolic 100–175; BP diastolic 70–116; PULSE 119–140; RESP 18–26; TEMP 35.9–36.6; O2SAT 88–96; BMI 29.5
[2024-12-19 00:51] LABS: Partial Thromboplastin Time 93.5 Seconds (22.0-36.0)
[2024-12-19] MEDS: QUEtiapine FUMARATE 25 MG TABLET PO ×2 (02:16→22:52)
[2024-12-19] MEDS: QUEtiapine FUMARATE 25 MG TABLET 50 MG PO (04:05)
[2024-12-19] MEDS: OLANZapine INJ 5 MG, Sterile Water 2.1 ML IM (05:11)
[2024-12-19] MEDS: LOSARTAN POTASSIUM 25 MG TABLET 50 MG PO ×2 (06:15→21:21)
[2024-12-19 06:16] LABS: Basophils % (Auto) 0 % (0-2.5); Eosinophils % (Auto) 0 % (0-10); Hematocrit 38.1 % (36.0-46.0); Hemoglobin 12.5 g/dL (12.0-16.0); Immature Granulocytes % (Auto) 1 % (0-0); Immature Granulocytes Auto 0.03 Thou/mm3 (0.00-0.00); Lymphocytes # (Auto) 1.3 Thou/mm3 (1.0-4.8); Lymphocytes % (Auto) 20 % (10-50); Mean Corpuscular HGB Conc 32.8 g/dl (31.0-37.0); Mean Corpuscular Hemoglobin 32.1 pg (25.0-35.0); Mean Corpuscular Volume 98 fL (80-100); Monocytes # (Auto) 0.9 Thou/mm3 (0.0-0.8); Monocytes % (Auto) 14 % (0-12); Neutrophils # (Auto) 4.3 Thou/mm3 (1.8-7.7); Neutrophils % (Auto) 66 % (37-80); Nucleated Red Blood Cell # 0.02 Thou/mm3 (0.00-0.00); Nucleated Red Blood Cell % 0 /100 WBC (0); Platelet Count 246 Thou/mm3 (140-440); RDW Standard Deviation 54.7 fL (36.4-46.3); White Blood Count 6.5 Thou/mm3 (3.6-11.0)
[2024-12-19] MEDS: LEVALBUTEROL RT 0.63 MG/3 ML NEBU INH ×3 (06:46→23:04)
[2024-12-19 07:02] LABS: Anion Gap 8 (7-16); BUN/Creatinine Ratio 22 Ratio (12-20); Blood Urea Nitrogen 22 mg/dL (9-23); Carbon Dioxide 36.2 mMol/L (20.0-31.0); Chloride 98 mMol/L (98-107); Estimated Creatinine Clearance 46.1 mL/min (>60); Glucose 196 mg/dL (74-106); Osmolality,Calculated 291 (275-295); Potassium 4.7 mMol/L (3.4-5.1); Sodium 142 mMol/L (136-145); eGFR 55 See Note
[2024-12-19 07:18] LABS: Thyroid Stimulating Hormone 3.37 uIU/mL (0.55-4.78)
[2024-12-19 07:34] LABS: Respiratory Syncytial Virus Ag Negative (Negative)
[2024-12-19 08:36] LABS: Magnesium 2.1 mg/dL (1.6-2.6)
[2024-12-19 08:44] LABS: Partial Thromboplastin Time 104.2 Seconds (22.0-36.0)
[2024-12-19 08:57] LABS: INR 1.4 (0.9-1.3); Prothrombin Time 14.5 Seconds (9.0-12.2)
[2024-12-19 09:00] LABS: Base Excess, Venous 13 (-3-3); O2 Saturation, Venous 60 % (96-97); PCO2, Venous 71 mmHg (36-56); PO2, Venous 34 mmHg (15-58); pH, Venous 7.38 (7.33-7.66)
--- NOTE | 2024-12-19 09:07 | PC.RT ---
Called by Dr. Negro requesting pt put onto BiPAP. Dr came into room as pt was placed on, Dr confirmed settings.
--- NOTE | 2024-12-19 09:15 | PC.SS ---
Update: Patient receiving IV antibiotics. Patient on Heparin drip. Ultrasound is pending.
[2024-12-19] MEDS: PANTOPRAZOLE INJ 40 MG VIAL IV (09:55)
[2024-12-19] MEDS: predniSONE 20 MG TABLET 40 MG PO (09:55)
[2024-12-19] MEDS: cefTRIAXone/D5w 1gm IV premix 50 ML IV (09:55)
[2024-12-19] MEDS: DILTIAZEM CD 120 MG CAPCR PO (09:55)
[2024-12-19] MEDS: ASPIRIN EC 81 MG TABEC PO (09:56)
[2024-12-19] MEDS: AZITHROMYCIN INJ 500 MG in SODIUM CHLORIDE 0.9% 250 ML 250 ML 250 MG IV (09:56)
--- NOTE | 2024-12-19 11:00 | XR_ITS ---
Examination: Ultrasound right hemithorax Ultrasound left hemithorax Exam date and time: December 19, 2024 1403 hours INDICATIONS: Shortness of breath this week, mild to moderate bilateral pleural effusions on CT chest probably 2024 TECHNIQUE AND FINDINGS: Grayscale sonographic images right and left hemithoraces Lung surface near the pleural surface on all visualized images IMPRESSION: No feasible site for thoracentesis
[2024-12-19 11:20] LABS: Base Excess, Venous 13 (-3-3); O2 Saturation, Venous 96 % (96-97); PCO2, Venous 45 mmHg (36-56); PO2, Venous 64 mmHg (15-58); pH, Venous 7.52 (7.33-7.66)
--- NOTE | 2024-12-19 11:40 | PD.RESPRO ---
Documentation for date of: 12/19/24 Subjective Subjective Interval history: 12/19/2024: Overnight patient's heart rate in the 130s, EKG obtained showed sinus rhythm. Patient was agitated and was not able to sleep; night team started the patient on melatonin and gave one-time dose of Seroquel. This morning patient seen and assessed appears to be in some respiratory distress. Patient was initially started on BiPAP with serial ABG/VBG's obtained which showed improvement in respiratory acidosis. Patient's last VBG shows somewhat alkalotic with pH 7.52 and pCO2 of 45. Upon result of VBG, BiPAP has been discontinued. Patient was also scheduled for ultrasound-guided thoracentesis but due to elevated PTT that has been deferred; will continue to monitor and assess for thoracentesis needs. Patient will continue to be treated with IV antibiotics for superimposed pneumonia and heparin drip for the pulmonary embolism. Exam Vital Signs Temp Pulse Resp BP Pulse Ox O2 Del Method O2 Flow Rate 96.9 F 132 H 23 H 140/101 H 96 Nasal Cannula 6 12/19/24 08:00 12/19/24 09:55 12/19/24 09:02 12/19/24 09:55 12/19/24 09:02 12/19/24 04:00 12/19/24 06:48 FiO2 50 12/19/24 09:02 Narrative Exam Physical Exam: GENERAL: Awake, restless in respiratory distress, appears stated age HEENT: NC/AT. Moist mucosa. PERRLA/EOMI. CARDIO: Heart RRR, no obvious murmurs, no JVD. PULM: No coughing but appears visibly SOB with BiPAP (Ipap 15/Epap 6). Lungs have reduced breath sounds at bases but otherwise CTA B/L GI: Abdomen soft but distended, NT, +BS. SKIN/MSK/EXT: No wounds/discoloration/rashes/edema/amputations. +Pedal pulses present B/L. NEURO: Oriented x3, Moves extremities x4 and no focal neurological deficits. Objective Labs 12/19/24 05:49 12/19/24 05:49 Labs: Laboratory Results - last 24 hr 12/18/24 12/18/24 12/18/24 05:15 10:50 14:07 WBC RBC Hgb Hct MCV MCH MCHC RDW Std Deviation Plt Count Neut % (Auto) Lymph % (Auto) [place] % (Auto) Eos % (Auto) Baso % (Auto) Neut # (Auto) Lymph # (Auto) [place] # (Auto) Eos # (Auto) Baso # (Auto) Immature Gran # (Auto) Absolute Nucleated RBC Immature Gran % Nucleated RBC % PT INR APTT 28.0 Puncture Site Right Radial ABG pH 7.41 ABG pCO2 62 H ABG pO2 52 L* ABG HCO3 39 H ABG O2 Saturation 86 L ABG Base Excess 12 H VBG pH VBG pCO2 VBG pO2 VBG O2 Sat (Paulie) VBG Base Excess Oxygen Liter Flow 4 FiO2 Sodium Potassium Chloride Carbon Dioxide Anion Gap BUN Creatinine Estim Creat Clear Calc eGFR BUN/Creatinine Ratio Glucose Estimated Ave Glu mg/dL Hemoglobin A1c Calculated Osmolality Calcium Magnesium Lactate Dehydrogenase Procalcitonin TSH RSV Rapid Negative 12/18/24 12/18/24 12/18/24 14:15 19:24 23:55 WBC RBC Hgb Hct MCV MCH MCHC RDW Std Deviation Plt Count Neut % (Auto) Lymph % (Auto) [place] % (Auto) Eos % (Auto) Baso % (Auto) Neut # (Auto) Lymph # (Auto) [place] # (Auto) Eos # (Auto) Baso # (Auto) Immature Gran # (Auto) Absolute Nucleated RBC Immature Gran % Nucleated RBC % PT INR APTT 93.5 H D Puncture Site Left Radial ABG pH 7.38 ABG pCO2 62 H ABG pO2 76 L D ABG HCO3 37 H ABG O2 Saturation 95 ABG Base Excess 9 H VBG pH VBG pCO2 VBG pO2 VBG O2 Sat (Paulie) VBG Base Excess Oxygen Liter Flow FiO2 21 Sodium Potassium Chloride Carbon Dioxide Anion Gap BUN Creatinine Estim Creat Clear Calc eGFR BUN/Creatinine Ratio Glucose Estimated Ave Glu mg/dL 169 H Hemoglobin A1c 7.5 H Calculated Osmolality Calcium Magnesium Lactate Dehydrogenase 207 Procalcitonin 0.06 TSH RSV Rapid 12/19/24 12/19/24 05:49 08:30 WBC 6.5 RBC 3.90 L Hgb 12.5 Hct 38.1 MCV 98 MCH 32.1 MCHC 32.8 RDW Std Deviation 54.7 H Plt Count 246 Neut % (Auto) 66 Lymph % (Auto) 20 [place] % (Auto) 14 H Eos % (Auto) 0 Baso % (Auto) 0 Neut # (Auto) 4.3 Lymph # (Auto) 1.3 [place] # (Auto) 0.9 H Eos # (Auto) 0.0 Baso # (Auto) 0.0 Immature Gran # (Auto) 0.03 H Absolute Nucleated RBC 0.02 H Immature Gran % 1 H Nucleated RBC % 0 PT 14.5 H INR 1.4 H APTT 104.2 H* D Puncture Site ABG pH ABG pCO2 ABG pO2 ABG HCO3 ABG O2 Saturation ABG Base Excess VBG pH 7.38 VBG pCO2 71 H VBG pO2 34 VBG O2 Sat (Paulie) 60 L VBG Base Excess 13 H Oxygen Liter Flow FiO2 Sodium 142 Potassium 4.7 Chloride 98 Carbon Dioxide 36.2 H Anion Gap 8 BUN 22 Creatinine 1.0 Estim Creat Clear Calc 46.1 L eGFR 55 L BUN/Creatinine Ratio 22 H Glucose [address] Glu mg/dL Hemoglobin A1c Calculated Osmolality 291 Calcium 9.0 Magnesium 2.1 Lactate Dehydrogenase Procalcitonin TSH 3.37 RSV Rapid ABG Interpretation ABG results: 12/18/24 12/18/24 12/19/24 14:07 19:24 08:30 ABG pH 7.41 7.38 ABG pCO2 62 H 62 H ABG pO2 52 L* 76 L D ABG HCO3 39 H 37 H ABG O2 Saturation 86 L 95 ABG Base Excess 12 H 9 H VBG pH 7.38 VBG pCO2 71 H VBG pO2 34 VBG Base Excess 13 H Quality Measures Quality Measures none Advance care planning discussed with:: patient and child Assessment & Plan Assessment Current Active Medications: Generic Name Dose Route Start Last Admin Trade Name Harper PRN Reason Stop Dose Admin Acetaminophen 650 mg 12/18/24 12:56 Acetaminophen 325 Mg Tablet PO 01/17/25 12:55 Q6H PRN Fever >101.5 Acetaminophen 650 mg 12/18/24 12:56 Acetaminophen 325 Mg Tablet PO 01/17/25 12:55 Q6H PRN PAIN SCALE 1-3 (mild Aspirin 81 mg 12/19/24 09:00 12/19/24 09:56 Aspirin Ec 81 Mg Tabec PO 01/18/25 08:59 81 mg QDAY SARA Administration Olanzapine 5 mg/ Sterile Water 0 mg 12/19/24 04:53 12/19/24 05:11 2.1 ml IM 01/18/25 04:52 5 dose QDAY SARA Administration Dextrose 25 ml 12/18/24 13:13 Dextrose 50%-Water Inj 50 Ml Syringe IV 01/17/25 13:12 Q15MIN PRN BG 50-70 responsive npo pt Dextrose 50 ml 12/18/24 13:13 Dextrose 50%-Water Inj 50 Ml Syringe IV 01/17/25 13:12 Q15MIN PRN BG <50 OR BG <70 & pt unresponsive Diltiazem HCl 120 mg 12/19/24 09:00 12/19/24 09:55 Diltiazem Cd 120 Mg Capcr PO 01/18/25 08:59 120 mg BID SARA Administration Glucagon 1 mg 12/18/24 13:13 Glucagon Inj 1 Mg Vial IM Q15MIN PRN BG <70, and no IV access Ceftriaxone Sodium/Dextrose 50 mls @ 100 mls/hr 12/19/24 09:00 12/19/24 09:55 Rocephin/D5w 1gm Iv Premix IV 12/26/24 08:59 100 mls/hr QDAY SARA Administration Azithromycin 500 mg/ Sodium 250 mls @ 250 mls/hr 12/19/24 09:00 12/19/24 09:56 Chloride IV 12/26/24 08:59 250 mls/hr QDAY SARA Administration Heparin Sodium/Dextrose 25,000 unit in 250 mls @ 14.696 mls/hr 12/18/24 16:45 12/19/24 09:48 Heparin In D5w Ivpb IV 01/01/25 16:44 13 units/kg/hr .Q17H1M SARA 10.614 mls/hr Titration Protocol 18 UNITS/KG/HR Insulin Glargine 15 unit 12/19/24 21:00 Insulin Glargine (Lantus) 5 Unit/0.05 Ml (Per 5 Units) SC 01/18/25 20:59 HS [facility] Insulin Human Lispro 3 unit 12/18/24 17:30 12/19/24 07:47 Insulin Lispro (Admelog) 1 Unit/0.01 Ml Unit SC 01/17/25 17:29 Not Given TIDWM [facility] Insulin Human Lispro 0 unit 12/18/24 18:00 12/19/24 05:27 Insulin Lispro (Admelog) 1 Unit/0.01 Ml Unit SC 01/17/25 17:59 Not Given Q6HR SARA Protocol Levalbuterol HCl 0.63 mg 12/18/24 15:00 12/19/24 06:49 Levalbuterol Rt 0.63 Mg/3 Ml Nebu INH 01/17/25 14:59 Not Given Q8HRRT SARA Losartan Potassium 50 mg 12/18/24 21:00 12/19/24 06:15 Losartan Potassium 25 Mg Tablet PO 01/17/25 20:59 50 mg BID SARA Administration Magnesium Hydroxide 30 ml 12/18/24 12:56 Milk Of Magnesia Susp 30 Ml Udc PO 01/17/25 12:55 QDAY PRN CONSTIPATION Protocol Melatonin 6 mg 12/18/24 23:30 12/18/24 23:37 Melatonin 3 Mg Tablet PO 01/17/25 23:29 6 mg HS SARA Administration Ondansetron HCl 4 mg 12/18/24 12:56 Ondansetron Inj 2 Mg/Ml Inj 2 Ml IV 01/17/25 12:55 Q6H PRN NAUSEA OR VOMITING Protocol Pantoprazole Sodium 40 mg 12/18/24 16:00 12/19/24 09:55 Pantoprazole Inj 40 Mg Vial IV 01/17/25 15:59 40 mg QDAY SARA Administration Pravastatin Sodium 20 mg 12/18/24 21:00 12/18/24 21:33 Pravastatin Sodium 10 Mg Tablet PO 01/17/25 20:59 20 mg HS SARA Administration Prednisone 40 mg 12/19/24 09:00 12/19/24 09:55 Prednisone 20 Mg Tablet PO 01/18/25 08:59 40 mg QDAY SARA Administration Sodium Chloride 3 ml 12/18/24 07:30 Sodium Chloride Rt Zhane 0.9% 3 Ml Nebu INH 01/17/25 07:29 PRN PRN SOLN Plan 89-year-old female with past medical history of congestive heart failure, atrial fibrillation on Eliquis, COPD, type 2 diabetes, hyperlipidemia presenting to the ED for dizziness and shortness of breath which has been ongoing for the past 3 days will be admitted for treatment of pulmonary embolism along with thoracentesis for pleural effusions and IV antibiotics for possible superimposed pneumonia. #Pulmonary Embolism #Sinus tachycardia likely 2/2 to PE, Pleural effusion and likely PNA Patient presented to the ED with shortness of breath and dizziness which has been ongoing for about 3 days; patient's family denies that she has had fever/chills or any sick contacts In the ED, patient was severely hypoxic requiring supplemental oxygenation with nasal cannula Well's Score of 9.0?points High risk group: 40.6% chance of PE in an ED population. Another study assigned scores > 4 as ?PE Likely? and had a 28% incidence of PE. On chest x-ray there are signs of mild heart failure along with superimposed bilateral pneumonia at the bases Bedside echo evaluation showed good ejection fraction but dilated right atrium along with dilated IVC open (roughly 2 cm without changes with inspiration) EKG showed sinus tachycardia without any concerning ST changes and troponin within normal limits BNP mildly elevated around 300 CT of the chest confirmed pulmonary artery emboli in the lower lobe left lobe with atelectasis and mild to moderate bilateral pleural effusions Plan: Continue heparin drip #Pleural effusion, RT #Bilateral pneumonia #History of COPD #History of CHF #Respiratory acidosis COVID-negative As stated above patient has the following findings on imaging 12/19/2024: Patient started on BiPAP for CO2 retention but upon rechecking VBG will discontinue as pH is now alkalotic Last VBG: pH 7.52, pCO2 45, pO2 64 U/S Thoracentesis deferred as patient PTT was too elevated; will reassess for need Blood cultures NG within 24 hours Plan: Start patient on IV ceftriaxone azithromycin Pending sputum culture collection Levalbuterol every 8 hour breathing treatments Bedside influenza A/B sent, RSV, cocci, urine Legionella Holding off on IV diuretics at this time, will reassess ECHO ordered Daily weights Strict I/Os 1800 fluid restriction #Insulin-dependent type 2 diabetes A1c of 7.5 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 #History of atrial fibrillation #Hyperlipidemia #Hypertension Chronic medical history Plan: Restarted losartan 50 mg, diltiazem 90 ER (SR not in formulary) Restarted pravastatin 20 mg, aspirin 81 mg Holding Eliquis 5mg po BID Hospital Management: Lines: PIV Diet: Carb consistent low , 1800ml fluid restriction Bowel: Zofran GI prophylaxis: Protonix DVT prophylaxis: On heparin drip Dispo: Treatment for pulmonary embolism, ECHO and thoracentesis for pleural effusion. On IV abx Code: Full Patient seen and examined with attending Dr. Mingo Negro, PGY-1 Attending Provider Attestation/Addendum I have discussed and was present for the essential components of the history, physical examination, diagnosis, and treatment plan with the resident. I agree with the patient's care as documented by the resident and amended herein by me. Gentry Aguila, DO. Patient seen and evaluated this AM. Patient remained tacky overnight, BP 175/116. Patient afebrile overnight. BiPAP was ordered however unfortunately not placed overnight, significant labs, CBC largely unremarkable, BMP demonstrated a CO2 of 36.2, glucose 196, most recent VBG today demonstrates improvement with a pH 7.52, pCO2 45 after BiPAP was added. Will continue heparin drip for now, ultrasound-guided thoracentesis ordered, will follow-up with cultures, echo ordered and pending, will continue steroids for any underlying COPD exacerbation, prednisone 40 mg daily, cocci still pending, will restart patient's home medications as appropriate. Continue to monitor closely Although this document has been carefully reviewed, there may still be some phonetic and other typographical errors. These errors are purely grammatical due to imperfections in the software program and should not be construed in any way to compromise the substance of the patient's medical care during this visit.
--- NOTE | 2024-12-19 14:24 | PC.SS ---
Rounding Note: Patient receiving IV antibiotics.
[2024-12-19 14:48] LABS: Cocci Serology, IgM Positive (Negative)
[2024-12-19 14:50] LABS: Cocid Sro, CF/ID (UCD) NO CHG* See Sep Rpt
[2024-12-19 16:18] LABS: Partial Thromboplastin Time 50.7 Seconds (22.0-36.0)
[2024-12-19] MEDS: Heparin/D5w 25K 250 ML Ivpb 25,000 UNIT/250 ML BAG 10.614 UNIT IV (17:07)
[2024-12-19] MEDS: FLUCONAZOLE/NS 400 MG IVPB 400 MG/200 ML BAG 100 MG IV (17:49)
[2024-12-19] MEDS: INSULIN LISPRO (AdmeLOG) 1 UNIT/0.01 ML UNIT 3 UNIT SC (17:50)
[2024-12-19] MEDS: INSULIN LISPRO (AdmeLOG) 1 UNIT/0.01 ML UNIT SC ×2 (17:51→21:22)
[2024-12-19] MEDS: DILTIAZEM ER 90 MG ER CAPSULE PO (21:15)
[2024-12-19] MEDS: INSULIN GLARGINE (Lantus) 5 UNIT/0.05 ML (PER 5 UNITS) 15 UNIT SC (21:19)
[2024-12-19] MEDS: MELATONIN 3 MG TABLET 6 MG PO (21:21)
[2024-12-19] MEDS: PRAVASTATIN SODIUM 10 MG TABLET 20 MG PO (21:24)
[2024-12-19 21:41] LABS: Partial Thromboplastin Time 66.5 Seconds (22.0-36.0)
[2024-12-20] VITALS (12 sets, daily range): BP systolic 99–150; BP diastolic 86–99; PULSE 88–136; RESP 18–28; TEMP 36.1–36.8; O2SAT 10–96; BMI 28.2
[2024-12-20] MEDS: OLANZapine INJ 5 MG, Sterile Water 2.1 ML IM (01:33)
[2024-12-20 06:08] LABS: Basophils % (Auto) 0 % (0-2.5); Eosinophils % (Auto) 0 % (0-10); Hematocrit 37.6 % (36.0-46.0); Immature Granulocytes % (Auto) 0 % (0-0); Immature Granulocytes Auto 0.03 Thou/mm3 (0.00-0.00); Lymphocytes # (Auto) 0.6 Thou/mm3 (1.0-4.8); Lymphocytes % (Auto) 9 % (10-50); Mean Corpuscular HGB Conc 31.9 g/dl (31.0-37.0); Mean Corpuscular Hemoglobin 32.1 pg (25.0-35.0); Mean Corpuscular Volume 101 fL (80-100); Monocytes # (Auto) 0.7 Thou/mm3 (0.0-0.8); Monocytes % (Auto) 9 % (0-12); Neutrophils # (Auto) 6.2 Thou/mm3 (1.8-7.7); Neutrophils % (Auto) 82 % (37-80); Nucleated Red Blood Cell % 0 /100 WBC (0); Platelet Count 255 Thou/mm3 (140-440); Red Blood Count 3.74 Miln/mm3 (4.00-5.20); White Blood Count 7.6 Thou/mm3 (3.6-11.0)
[2024-12-20 06:31] LABS: Anion Gap 7 (7-16); BUN/Creatinine Ratio 23 Ratio (12-20); Blood Urea Nitrogen 27 mg/dL (9-23); Calcium 8.9 mg/dL (8.3-10.6); Carbon Dioxide 38.4 mMol/L (20.0-31.0); Chloride 99 mMol/L (98-107); Creatinine (Component) 1.2 mg/dL (0.6-1.3); Estimated Creatinine Clearance 37.5 mL/min (>60); Glucose 204 mg/dL (74-106); Osmolality,Calculated 297 (275-295); Potassium 5.3 mMol/L (3.4-5.1); Sodium 144 mMol/L (136-145); eGFR 44 See Note
[2024-12-20] MEDS: LEVALBUTEROL RT 0.63 MG/3 ML NEBU INH ×3 (06:34→20:06)
[2024-12-20 07:48] LABS: INR 1.3 (0.9-1.3)
[2024-12-20 07:52] LABS: Partial Thromboplastin Time 110.7 Seconds (22.0-36.0)
[2024-12-20] MEDS: cefTRIAXone/D5w 1gm IV premix 50 ML IV (09:17)
[2024-12-20] MEDS: PANTOPRAZOLE INJ 40 MG VIAL IV (09:17)
[2024-12-20] MEDS: DILTIAZEM ER 90 MG ER CAPSULE PO ×2 (09:18→20:55)
[2024-12-20] MEDS: ASPIRIN EC 81 MG TABEC PO (09:19)
[2024-12-20] MEDS: INSULIN LISPRO (AdmeLOG) 1 UNIT/0.01 ML UNIT 3 UNIT SC ×2 (09:22→11:39)
[2024-12-20] MEDS: INSULIN LISPRO (AdmeLOG) 1 UNIT/0.01 ML UNIT SC ×3 (09:23→20:54)
[2024-12-20 10:07] LABS: Troponin I 0.028 ng/mL (0.0-0.045)
[2024-12-20] MEDS: AZITHROMYCIN INJ 500 MG in SODIUM CHLORIDE 0.9% 250 ML 250 ML 250 MG IV (10:29)
[2024-12-20] MEDS: FLUCONAZOLE/NS 200 MG IVPB 200 MG/100 ML BAG 100 MG IV (10:30)
--- NOTE | 2024-12-20 10:39 | XR_ITS ---
Examination: Abdomen AP single view Technique: AP portable supine abdomen, single view Exam date and time: December 20, 2024 1050 hours INDICATIONS: Abdominal distention today. FINDINGS: Moderate air and stool throughout the colon No obstruction No free air Atelectasis versus pneumonia at the lung bases IMPRESSION: Moderate colonic ileus Recommend PA lateral chest follow-up to confirm pneumonia at the lung bases
[2024-12-20 10:43] LABS: Partial Thromboplastin Time > 139.0 Seconds (22.0-36.0)
--- NOTE | 2024-12-20 10:48 | PC.SS ---
Update: Patient receiving IV antibiotics. (+) cocci.
[2024-12-20] MEDS: SENNA TABLET 1 TAB PO (11:51)
[2024-12-20] MEDS: Milk Of Magnesia Susp 30 ML UDC PO (11:54)
--- NOTE | 2024-12-20 13:31 | PD.RESPRO ---
Documentation for date of: 12/20/24 Subjective Subjective Interval history: 12/20/2024: Overnight patient continued to be agitated and was required to be administered Seroquel, olanzapine and put on restraints as she was attempting to remove oxygen supplementation. This morning patient seen and assessed and is currently requiring 10 L of oxygen mask for oxygen supplementation. On exam, patient continues to have expiratory wheezing and rhonchi; moreover, will increase breathing treatments from every 8hrs to every 6hrs. Patient's cocci serology came back positive; patient's been started on fluconazole. Patient's electrolytes show acute kidney injury as a result, we will hold losartan and renally dose medications. Patient continues to be treated with IV antibiotics for superimposed bacterial pneumonia and IV heparin for pulmonary embolism seen on CT angiography. Patient also had distended abdomen, hypoactive bowel sounds and has not had a bowel movement; moreover, ordered KUB which showed ileus and as a result started patient on bowel regimen. Will continue to monitor patient for any acute changes; patient's daughter, bedside, has been updated regarding her status. Exam Vital Signs Temp Pulse Resp BP Pulse Ox O2 Del Method O2 Flow Rate 97.2 F 132 H 28 H 123/94 H 92 L Oxy Mask 10 12/20/24 12:00 12/20/24 12:12 12/20/24 12:12 12/20/24 12:00 12/20/24 12:12 12/20/24 12:00 12/20/24 12:12 FiO2 50 12/20/24 00:00 Narrative Exam Physical Exam: GENERAL: Awake, restless in respiratory distress, appears stated age HEENT: NC/AT. Moist mucosa. PERRLA/EOMI. CARDIO: Heart RRR, no obvious murmurs, no JVD. PULM: No coughing but appears mildly SOB with 10L Oxymask. Lungs have reduced breath sounds at bases but otherwise CTA B/L GI: Abdomen soft but distended, NT, +BS. SKIN/MSK/EXT: No wounds/discoloration/rashes/edema/amputations. +Pedal pulses present B/L. NEURO: Oriented x3, Moves extremities x4 and no focal neurological deficits. Objective Labs 12/20/24 05:10 12/20/24 05:10 Labs: Laboratory Results - last 24 hr 12/18/24 12/19/24 12/19/24 14:15 15:32 20:54 WBC RBC Hgb Hct MCV MCH MCHC RDW Std Deviation Plt Count Neut % (Auto) Lymph % (Auto) [place] % (Auto) Eos % (Auto) Baso % (Auto) Neut # (Auto) Lymph # (Auto) [place] # (Auto) Eos # (Auto) Baso # (Auto) Immature Gran # (Auto) Absolute Nucleated RBC Immature Gran % Nucleated RBC % PT INR APTT 50.7 H D 66.5 H D Sodium Potassium Chloride Carbon Dioxide Anion Gap BUN Creatinine Estim Creat Clear Calc eGFR BUN/Creatinine Ratio Glucose Calculated Osmolality Calcium Troponin I Coccidioides IgM Ab Positive A 12/20/24 12/20/24 05:10 09:30 WBC 7.6 RBC 3.74 L Hgb 12.0 Hct 37.6 MCV 101 H MCH 32.1 MCHC 31.9 RDW Std Deviation 57.0 H Plt Count 255 Neut % (Auto) 82 H Lymph % (Auto) 9 L [place] % (Auto) 9 Eos % (Auto) 0 Baso % (Auto) 0 Neut # (Auto) 6.2 Lymph # (Auto) 0.6 L [place] # (Auto) 0.7 Eos # (Auto) 0.0 Baso # (Auto) 0.0 Immature Gran # (Auto) 0.03 H Absolute Nucleated RBC 0.00 Immature Gran % 0 Nucleated RBC % 0 PT 14.0 H INR 1.3 APTT 110.7 H* D > 139.0 H* D Sodium 144 Potassium 5.3 H D Chloride 99 Carbon Dioxide 38.4 H Anion Gap 7 BUN 27 H Creatinine 1.2 Estim Creat Clear Calc 37.5 L eGFR 44 L BUN/Creatinine Ratio 23 H Glucose 204 H Calculated Osmolality 297 H Calcium 8.9 Troponin I 0.028 Coccidioides IgM Ab ABG Interpretation ABG results: 12/18/24 12/18/24 12/19/24 14:07 19:24 08:30 ABG pH 7.41 7.38 ABG pCO2 62 H 62 H ABG pO2 52 L* 76 L D ABG HCO3 39 H 37 H ABG O2 Saturation 86 L 95 ABG Base Excess 12 H 9 H VBG pH 7.38 VBG pCO2 71 H VBG pO2 34 VBG Base Excess 13 H 12/19/24 11:08 ABG pH ABG pCO2 ABG pO2 ABG HCO3 ABG O2 Saturation ABG Base Excess VBG pH 7.52 VBG pCO2 45 D VBG pO2 64 H D VBG Base Excess 13 H Quality Measures Quality Measures none Advance care planning discussed with:: patient and child Assessment & Plan Assessment Current Active Medications: Generic Name Dose Route Start Last Admin Trade Name Freq PRN Reason Stop Dose Admin Acetaminophen 650 mg 12/18/24 12:56 Acetaminophen 325 Mg Tablet PO 01/17/25 12:55 Q6H PRN Fever >101.5 Acetaminophen 650 mg 12/18/24 12:56 Acetaminophen 325 Mg Tablet PO 01/17/25 12:55 Q6H PRN PAIN SCALE 1-3 (mild Aspirin 81 mg 12/19/24 09:00 12/20/24 09:19 Aspirin Ec 81 Mg Tabec PO 01/18/25 08:59 81 mg QDAY SARA Administration Dextrose 25 ml 12/18/24 13:13 Dextrose 50%-Water Inj 50 Ml Syringe IV 01/17/25 13:12 Q15MIN PRN BG 50-70 responsive npo pt Dextrose 50 ml 12/18/24 13:13 Dextrose 50%-Water Inj 50 Ml Syringe IV 01/17/25 13:12 Q15MIN PRN BG <50 OR BG <70 & pt unresponsive Diltiazem HCl 90 mg 12/19/24 21:00 12/20/24 09:18 Diltiazem Er 90 Mg Er Capsule PO 01/18/25 08:59 90 mg BID SARA Administration Glucagon 1 mg 12/18/24 13:13 Glucagon Inj 1 Mg Vial IM Q15MIN PRN BG <70, and no IV access Ceftriaxone Sodium/Dextrose 50 mls @ 100 mls/hr 12/19/24 09:00 12/20/24 09:17 Rocephin/D5w 1gm Iv Premix IV 12/26/24 08:59 100 mls/hr QDAY SARA Administration Azithromycin 500 mg/ Sodium 250 mls @ 250 mls/hr 12/19/24 09:00 12/20/24 10:29 Chloride IV 12/26/24 08:59 250 mls/hr QDAY SARA Administration Heparin Sodium/Dextrose 25,000 unit in 250 mls @ 14.696 mls/hr 12/18/24 16:45 12/20/24 11:45 Heparin In D5w Ivpb IV 01/01/25 16:44 10 units/kg/hr .Q17H1M SARA 8.165 mls/hr Titration Protocol 18 UNITS/KG/HR Fluconazole 200 mg in 100 mls @ 100 mls/hr 12/20/24 09:00 12/20/24 10:30 Diflucan/Ns Ivpb IV 12/27/24 08:59 100 mls/hr QDAY SARA Administration Insulin Glargine 15 unit 12/19/24 21:00 12/19/24 21:19 Insulin Glargine (Lantus) 5 Unit/0.05 Ml (Per 5 Units) SC 01/18/25 20:59 15 unit HS SARA Administration Insulin Human Lispro 3 unit 12/18/24 17:30 12/20/24 11:39 Insulin Lispro (Admelog) 1 Unit/0.01 Ml Unit SC 01/17/25 17:29 3 unit TIDWM SARA Administration Insulin Human Lispro 0 unit 12/19/24 17:00 12/20/24 11:40 Insulin Lispro (Admelog) 1 Unit/0.01 Ml Unit SC 01/18/25 16:59 1 unit ACHS SARA Administration Protocol Levalbuterol HCl 0.63 mg 12/20/24 13:00 12/20/24 12:12 Levalbuterol Rt 0.63 Mg/3 Ml Nebu INH 01/19/25 12:59 0.63 mg Q6HRRT SARA Administration Melatonin 6 mg 12/18/24 23:30 12/19/24 21:21 Melatonin 3 Mg Tablet PO 01/17/25 23:29 6 mg HS SARA Administration Pantoprazole Sodium 40 mg 12/18/24 16:00 12/20/24 09:17 Pantoprazole Inj 40 Mg Vial IV 01/17/25 15:59 40 mg QDAY SARA Administration Pravastatin Sodium 20 mg 12/18/24 21:00 12/19/24 21:24 Pravastatin Sodium 10 Mg Tablet PO 01/17/25 20:59 20 mg HS SARA Administration Sennosides 1 tab 12/20/24 09:30 12/20/24 11:51 Senna Tablet PO 01/19/25 09:29 1 tab QDAY SARA Administration Protocol Sodium Chloride 3 ml 12/18/24 07:30 Sodium Chloride Rt Zhane 0.9% 3 Ml Nebu INH 01/17/25 07:29 PRN PRN SOLN Plan 89-year-old female with past medical history of congestive heart failure, atrial fibrillation on Eliquis, COPD, type 2 diabetes, hyperlipidemia presenting to the ED for dizziness and shortness of breath which has been ongoing for the past 3 days will be admitted for treatment of pulmonary embolism along with thoracentesis for pleural effusions and IV antibiotics for possible superimposed pneumonia. #Pulmonary Embolism #Sinus tachycardia likely 2/2 to PE, Pleural effusion and likely PNA Patient presented to the ED with shortness of breath and dizziness which has been ongoing for about 3 days; patient's family denies that she has had fever/chills or any sick contacts In the ED, patient was severely hypoxic requiring supplemental oxygenation with nasal cannula Well's Score of 9.0?points High risk group: 40.6% chance of PE in an ED population. Another study assigned scores > 4 as ?PE Likely? and had a 28% incidence of PE. On chest x-ray there are signs of mild heart failure along with superimposed bilateral pneumonia at the bases Bedside echo evaluation showed good ejection fraction but dilated right atrium along with dilated IVC open (roughly 2 cm without changes with inspiration) EKG showed sinus tachycardia without any concerning ST changes and troponin within normal limits BNP mildly elevated around 300 CT of the chest confirmed pulmonary artery emboli in the lower lobe left lobe with atelectasis and mild to moderate bilateral pleural effusions Plan: Continue heparin drip #Pleural effusion, RT #Bilateral pneumonia #Cocci Pneumonia #History of COPD #History of CHF #Respiratory acidosis COVID-negative As stated above patient has the following findings on imaging 12/19/2024: Patient started on BiPAP for CO2 retention but upon rechecking VBG will discontinue as pH is now alkalotic Last VBG: pH 7.52, pCO2 45, pO2 64 U/S Thoracentesis deferred as patient PTT was too elevated; will reassess for need Blood cultures NG within 24 hours ECHO shows Poor quality images. Normal LV size and wall thickness, Normal LVEF 50-55%. Diastolic dysfunction present but cannot grade to arrhythymia. Septal and lateral wall dysynchrony noted. RV not visulaized well. RV appears normal in size but cannot comment on function. Estimated RVSP, 38 mmHg. RAP 15. Atleast mild PAH. Moderate biatrial dilatation. Dilated IVC. Moderate MR. Mild TR. Mild AV sclerosis without stenosis. Bedside influenza A/B sent, urine Legionella; RSV negative, Cocci IgM positive Plan: Renally dosed IV Diflucan Continue IV ceftriaxone azithromycin Pending sputum culture collection Levalbuterol every 6 hour breathing treatments Holding off on IV diuretics at this time, will reassess Daily weights Strict I/Os 1800 fluid restriction #RADHA #Hyperkalemia Likely 2/2 to Losartan which was home dose Patient's Cr uptrended since admission from 0.9 to 1.2 Potassium of 5.3 Plan: Stopped Losartan Renally dose medications Avoid nephrotoxic agents #Ileus On exam patient had distended abdomen with hypoactive bowel sounds Patient has no BM recorded Plan: Started bowel regimen #Insulin-dependent type 2 diabetes A1c of 7.5 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 #History of atrial fibrillation #Hyperlipidemia #Hypertension Chronic medical history Plan: Continue diltiazem 90 ER (SR not in formulary) Continue pravastatin 20 mg, aspirin 81 mg Holding Eliquis 5mg po BID Hospital Management: Lines: PIV Diet: Carb consistent low , 1800ml fluid restriction Bowel: Zofran GI prophylaxis: Protonix DVT prophylaxis: On heparin drip Dispo: Treatment for pulmonary embolism, ECHO and thoracentesis for pleural effusion. On IV abx Code: Full Patient seen and examined with attending Dr. Mingo Negro, PGY-1 Attending Provider Attestation/Addendum I have discussed and was present for the essential components of the history, physical examination, diagnosis, and treatment plan with the resident. I agree with the patient's care as documented by the resident and amended herein by me. Gentry Aguila, . Patient seen and evaluated this AM. Overnight the patient's O2 requirements increased, patient on facemask 10 L right now, still tachycardic in the 130s. Significant labs today include a and unremarkable CBC, BMP remarkable for a sodium 144, potassium 5.3, bicarb 38, renal function normal. Today will continue continue the patient's heparin drip, continue fluconazole however renally dose to 200 mg daily. Strict I's and O's orders with a pure wick catheter. I have discontinued steroids in setting of patient's coccidiomycosis infection, a troponin was ordered and is negative. If the patient worsens may consider ICU consult. Of note, the patient's echocardiogram was complete demonstrating normal LV size and wall thickness, normal LVEF 50 to 55%, diastolic dysfunction present but could not be graded, septal and lateral wall dyssynchrony was noted, the RV was not visualized well however appeared normal, RVSP 38, RAP 15, mild P AH noted along with a dilated right and left atrium as well as IVC. Continue to monitor closely # some phonetic and other typographical errors. These errors are purely grammatical due to imperfections in the software program and should not be construed in any way to compromise the substance of the patient's medical care during this visit.
[2024-12-20] MEDS: DEXTROSE 50%-WATER INJ 50 ML SYRINGE IV (16:44)
[2024-12-20 18:48] LABS: Partial Thromboplastin Time 85.4 Seconds (22.0-36.0)
[2024-12-20] MEDS: Heparin/D5w 25K 250 ML Ivpb 25,000 UNIT/250 ML BAG 6.532 UNIT IV (19:16)
[2024-12-20] MEDS: INSULIN GLARGINE (Lantus) 5 UNIT/0.05 ML (PER 5 UNITS) 15 UNIT SC (20:53)
[2024-12-20] MEDS: MELATONIN 3 MG TABLET 6 MG PO (20:56)
[2024-12-20] MEDS: PRAVASTATIN SODIUM 10 MG TABLET 20 MG PO (20:56)
[2024-12-20 21:19] LABS: Collection Type, Urine Clean Catch
[2024-12-20 21:27] LABS: Bilirubin,Urine Negative (Negative); Blood,Urine Negative (Negative); Clarity,Urine Clear (Clear/Hazy); Color,Urine Lt-Yellow (Lt Yel-Yel); Glucose, Urine Negative (Negative); Ketones,Urine Negative (Negative); Leukocyte Esterase,Urine Negative (Negative); Nitrite,Urine Negative (Negative); PH,Urine 6.5 (5.0-7.0); Protein,Urine Trace (Neg - Trace); RBC,Urine 2 /hpf (0-3); Specific Gravity,Urine 1.025 (1.001-1.035); Squamous Epithelial Cell,Urine < 1 /hpf (0-5); Urobilinogen,Urine Negative mg/dL (0.0-1.0); WBC,Urine 1 /hpf (0-5)
[2024-12-21] VITALS (14 sets, daily range): BP systolic 115–145; BP diastolic 73–96; PULSE 84–135; RESP 16–36; TEMP 36.1–36.7; O2SAT 92–97; BMI 28.0
[2024-12-21] MEDS: LEVALBUTEROL RT 0.63 MG/3 ML NEBU INH ×4 (01:07→18:31)
[2024-12-21 02:07] LABS: Partial Thromboplastin Time 50.3 Seconds (22.0-36.0)
[2024-12-21] MEDS: SENNA TABLET 1 TAB PO (08:38)
[2024-12-21] MEDS: ASPIRIN EC 81 MG TABEC PO (08:38)
[2024-12-21] MEDS: DILTIAZEM ER 90 MG ER CAPSULE PO ×2 (08:39→20:38)
[2024-12-21] MEDS: FLUCONAZOLE/NS 200 MG IVPB 200 MG/100 ML BAG 100 MG IV (08:39)
[2024-12-21] MEDS: cefTRIAXone/D5w 1gm IV premix 50 ML IV (08:40)
[2024-12-21] MEDS: PANTOPRAZOLE INJ 40 MG VIAL IV (08:40)
[2024-12-21 09:53] LABS: Basophils % (Auto) 0 % (0-2.5); Eosinophils # (Auto) 0.1 Thou/mm3 (0.0-0.5); Eosinophils % (Auto) 1 % (0-10); Hematocrit 38.9 % (36.0-46.0); Hemoglobin 11.9 g/dL (12.0-16.0); Immature Granulocytes % (Auto) 0 % (0-0); Immature Granulocytes Auto 0.03 Thou/mm3 (0.00-0.00); Lymphocytes # (Auto) 1.1 Thou/mm3 (1.0-4.8); Lymphocytes % (Auto) 11 % (10-50); Mean Corpuscular HGB Conc 30.6 g/dl (31.0-37.0); Mean Corpuscular Hemoglobin 31.6 pg (25.0-35.0); Mean Corpuscular Volume 104 fL (80-100); Monocytes % (Auto) 10 % (0-12); Neutrophils # (Auto) 7.8 Thou/mm3 (1.8-7.7); Neutrophils % (Auto) 78 % (37-80); Nucleated Red Blood Cell % 0 /100 WBC (0); Platelet Count 218 Thou/mm3 (140-440); Red Blood Count 3.76 Miln/mm3 (4.00-5.20)
[2024-12-21] MEDS: AZITHROMYCIN INJ 500 MG in SODIUM CHLORIDE 0.9% 250 ML 250 ML 250 MG IV (09:57)
[2024-12-21 10:14] LABS: Alanine Aminotransferase 18 U/L (10-49); Albumin/Globulin Ratio 1.5 (1.2-2.2); Alkaline Phosphatase 56 U/L (46-116); Anion Gap 3 (7-16); Aspartate Amino Transferase 16 U/L (0-34); BUN/Creatinine Ratio 20 Ratio (12-20); Bilirubin,Total 0.4 mg/dL (0.3-1.2); Blood Urea Nitrogen 20 mg/dL (9-23); Calcium 8.5 mg/dL (8.3-10.6); Calcium (Corrected) 8.5 mg/dL (8.5-10.1); Carbon Dioxide > 40.0 mMol/L (20.0-31.0); Chloride 100 mMol/L (98-107); Globulin 2.7 gm/dL (2.3-3.5); Glucose 210 mg/dL (74-106); Osmolality,Calculated 293 (275-295); Sodium 143 mMol/L (136-145); Total Protein 6.7 gm/dL (5.7-8.2); eGFR 55 See Note
[2024-12-21 10:32] LABS: Partial Thromboplastin Time 128.4 Seconds (22.0-36.0)
--- NOTE | 2024-12-21 10:50 | CHAP ---
Responded to Rapid Response. Said silent prayer in the hallway. No family present.
--- NOTE | 2024-12-21 10:52 | XR_ITS ---
Examination: AP chest single view Technique one AP portable upright chest single view Exam date and time: December 21, 2024 1101 hours INDICATIONS: Respiratory distress onset shortness of breath today FINDINGS: Again noted mild chronic heart failure pattern compared to December 18, 2024 Mild to moderate enlargement cardiac contour. Prominent vascular congestion Moderate to large bilateral pleural effusions Consider pneumonia both lung bases Prominent osteopenia IMPRESSION: Mild chronic heart failure Suspicious for superimposed pneumonia at the lung bases
[2024-12-21] MEDS: ALBUTEROL/IPRATROPIUM (Duoneb) RT SOL 3 ML NEBU INH (11:25)
--- NOTE | 2024-12-21 11:33 | ESPR_ITS ---
<Statement entered by Tani Li MD - 12/22/24 17:32> I discussed with and supervised the consumer insights intern physician involved in the care of this patient. Patient assessment and plan was discussed with entire medicine team, including my attending. I agree with the assessment and plan as documented by consumer insights intern doctor. Patient care was discussed with my attending physician Dr. Cuco Li, PGY-2 Documentation for date of: 12/21/24 Subjective Subjective Interval history: 12/21/2024: Overnight patient had to be restrained due to agitation and attempting to remove oxygen. Around 11 AM, patient had a rapid response called for desaturating to low 80s on 10 L oxy mask and increased work of breathing. Patient's airway, breathing and circulation assessed upon presentation; moreover, the patient appeared to be labored but awake and answering questions. Patient's vitals included HR 120-130s, spO2 of 84%, BP maintaining. CXR ordered showed mild chronic heart failure and was suspicious for superimposed pneumonia at the lung bases. Patient was switched from Oxymask to HFNC and ICU team was contacted regarding worsening oxygenation status. ICU team spoke with family regarding goals of care along with decision to go forward with thoracentesis. Patient's oxygen requirements and clinical status appears to have improved and she only required 50% FiO2 after reassessment. Exam Vital Signs Temp Pulse Resp BP Pulse Ox O2 Del Method O2 Flow Rate 97.0 F 121 H 22 H 131/73 H 95 Oxy Mask 8 12/21/24 08:00 12/21/24 11:25 12/21/24 11:25 12/21/24 08:39 12/21/24 11:25 12/21/24 08:00 12/21/24 11:25 FiO2 100 12/21/24 11:25 Narrative Exam Physical Exam: GENERAL: Awake, restless in respiratory distress, appears stated age HEENT: NC/AT. Moist mucosa. PERRLA/EOMI. CARDIO: Heart RRR, no obvious murmurs, no JVD. PULM: No coughing but appears SOB with HFNC. Lungs have reduced breath sounds at bases but otherwise CTA B/L GI: Abdomen soft but distended, NT, +BS. SKIN/MSK/EXT: No wounds/discoloration/rashes/edema/amputations. +Pedal pulses present B/L. NEURO: Oriented x3, Moves extremities x4 and no focal neurological deficits. Objective Labs 12/25/24 05:05 12/25/24 05:05 Labs: Laboratory Results - last 24 hr 12/20/24 12/20/24 12/21/24 17:23 17:45 01:14 WBC RBC Hgb Hct MCV MCH MCHC RDW Std Deviation Plt Count Neut % (Auto) Lymph % (Auto) [place] % (Auto) Eos % (Auto) Baso % (Auto) Neut # (Auto) Lymph # (Auto) [place] # (Auto) Eos # (Auto) Baso # (Auto) Immature Gran # (Auto) Absolute Nucleated RBC Immature Gran % Nucleated RBC % APTT 85.4 H D 50.3 H D Sodium Potassium Chloride Carbon Dioxide Anion Gap BUN Creatinine Estim Creat Clear Calc eGFR BUN/Creatinine Ratio Glucose Calculated Osmolality Calcium Corrected Calcium Total Bilirubin AST ALT Alkaline Phosphatase Total Protein Albumin Globulin Albumin/Globulin Ratio Ur Collection Type Clean Catch Urine Color Lt-Yellow Urine Clarity Clear Urine pH 6.5 Ur Specific Jermyn 1.025 Urine Protein Trace Urine Glucose (UA) Negative Urine Ketones Negative Urine Blood Negative Urine Nitrite Negative Urine Bilirubin Negative Urine Urobilinogen (Auto) Negative Ur Leukocyte Esterase Negative Urine RBC 2 Urine WBC 1 Ur Squamous Epith Cells < 1 Urine Bacteria None 12/21/24 09:30 WBC 10.0 RBC 3.76 L Hgb 11.9 L Hct 38.9 MCV 104 H MCH 31.6 MCHC 30.6 L RDW Std Deviation 59.0 H Plt Count 218 D Neut % (Auto) 78 Lymph % (Auto) 11 [place] % (Auto) 10 Eos % (Auto) 1 Baso % (Auto) 0 Neut # (Auto) 7.8 H Lymph # (Auto) 1.1 [place] # (Auto) 1.0 H Eos # (Auto) 0.1 Baso # (Auto) 0.0 Immature Gran # (Auto) 0.03 H Absolute Nucleated RBC 0.00 Immature Gran % 0 Nucleated RBC % 0 APTT 128.4 H* D Sodium 143 Potassium 5.0 Chloride 100 Carbon Dioxide > 40.0 H Anion Gap 3 L BUN 20 Creatinine 1.0 Estim Creat Clear Calc 45.0 L eGFR 55 L BUN/Creatinine Ratio 20 Glucose 210 H Calculated Osmolality 293 Calcium 8.5 Corrected Calcium 8.5 Total Bilirubin 0.4 AST 16 ALT 18 Alkaline Phosphatase 56 Total Protein 6.7 Albumin 4.0 Globulin 2.7 Albumin/Globulin Ratio 1.5 Ur Collection Type Urine Color Urine Clarity Urine pH Ur Specific J[place]yn Urine Protein Urine Glucose (UA) Urine Ketones Urine Blood Urine Nitrite Urine Bilirubin Urine Urobilinogen (Auto) Ur Leukocyte Esterase Urine RBC Urine WBC Ur Squamous Epith Cells Urine Bacteria ABG Interpretation ABG results: 12/18/24 12/18/24 12/19/24 14:07 19:24 08:30 ABG pH 7.41 7.38 ABG pCO2 62 H 62 H ABG pO2 52 L* 76 L D ABG HCO3 39 H 37 H ABG O2 Saturation 86 L 95 ABG Base Excess 12 H 9 H VBG pH 7.38 VBG pCO2 71 H VBG pO2 34 VBG Base Excess 13 H 12/19/24 11:08 ABG pH ABG pCO2 ABG pO2 ABG HCO3 ABG O2 Saturation ABG Base Excess VBG pH 7.52 VBG pCO2 45 D VBG pO2 64 H D VBG Base Excess 13 H Quality Measures Quality Measures none Advance care planning discussed with:: patient and child Assessment & Plan Assessment Current Active Medications: Generic Name Dose Route Start Last Admin Trade Name Freq PRN Reason Stop Dose Admin Acetaminophen 650 mg 12/18/24 12:56 Acetaminophen 325 Mg Tablet PO 01/17/25 12:55 Q6H PRN Fever >101.5 Acetaminophen 650 mg 12/18/24 12:56 Acetaminophen 325 Mg Tablet PO 01/17/25 12:55 Q6H PRN PAIN SCALE 1-3 (mild Aspirin 81 mg 12/19/24 09:00 12/21/24 08:38 Aspirin Ec 81 Mg Tabec PO 01/18/25 08:59 81 mg QDAY SARA Administration Dextrose 25 ml 12/18/24 13:13 Dextrose 50%-Water Inj 50 Ml Syringe IV 01/17/25 13:12 Q15MIN PRN BG 50-70 responsive npo pt Dextrose 50 ml 12/18/24 13:13 12/20/24 16:44 Dextrose 50%-Water Inj 50 Ml Syringe IV 01/17/25 13:12 50 ml Q15MIN PRN Administration BG <50 OR BG <70 & pt unresponsive Diltiazem HCl 90 mg 12/19/24 21:00 12/21/24 08:39 Diltiazem Er 90 Mg Er Capsule PO 01/18/25 08:59 90 mg BID SARA Administration Glucagon 1 mg 12/18/24 13:13 Glucagon Inj 1 Mg Vial IM Q15MIN PRN BG <70, and no IV access Ceftriaxone Sodium/Dextrose 50 mls @ 100 mls/hr 12/19/24 09:00 12/21/24 08:40 Rocephin/D5w 1gm Iv Premix IV 12/26/24 08:59 100 mls/hr QDAY SARA Administration Azithromycin 500 mg/ Sodium 250 mls @ 250 mls/hr 12/19/24 09:00 12/21/24 09:57 Chloride IV 12/26/24 08:59 250 mls/hr QDAY SARA Administration Heparin Sodium/Dextrose 25,000 unit in 250 mls @ 14.696 mls/hr 12/18/24 16:45 12/21/24 10:35 Heparin In D5w Ivpb IV 01/01/25 16:44 0 units/kg/hr .Q17H1M SARA 0 mls/hr Titration Protocol 18 UNITS/KG/HR Fluconazole 400 mg in 200 mls @ 100 mls/hr 12/21/24 11:22 Diflucan/Ns Ivpb IV 12/28/24 11:21 QDAY SARA Insulin Glargine 16 unit 12/21/24 21:00 Insulin Glargine (Lantus) 5 Unit/0.05 Ml (Per 5 Units) SC 01/20/25 20:59 HS [facility] Insulin Human Lispro 0 unit 12/19/24 17:00 12/20/24 20:54 Insulin Lispro (Admelog) 1 Unit/0.01 Ml Unit SC 01/18/25 16:59 1 unit ACHS [facility] Administration Protocol Insulin Human Lispro 2 unit 12/21/24 08:00 Insulin Lispro (Admelog) 1 Unit/0.01 Ml Unit SC 01/20/25 07:59 TIDWM SARA Levalbuterol HCl 0.63 mg 12/20/24 13:00 12/21/24 06:53 Levalbuterol Rt 0.63 Mg/3 Ml Nebu INH 01/19/25 12:59 0.63 mg Q6HRRT SARA Administration Melatonin 6 mg 12/18/24 23:30 12/20/24 20:56 Melatonin 3 Mg Tablet PO 01/17/25 23:29 6 mg HS SARA Administration Pantoprazole Sodium 40 mg 12/18/24 16:00 12/21/24 08:40 Pantoprazole Inj 40 Mg Vial IV 01/17/25 15:59 40 mg QDAY SARA Administration Pravastatin Sodium 20 mg 12/18/24 21:00 12/20/24 20:56 Pravastatin Sodium 10 Mg Tablet PO 01/17/25 20:59 20 mg HS SARA Administration Quetiapine Fumarate 50 mg 12/20/24 16:56 Quetiapine Fumarate 25 Mg Tablet PO 01/20/25 08:59 QDAY PRN AGITATION (MODERATE) Sennosides 1 tab 12/20/24 09:30 12/21/24 08:38 Senna Tablet PO 01/19/25 09:29 1 tab QDAY SARA Administration Protocol Sodium Chloride 3 ml 12/18/24 07:30 Sodium Chloride Rt Zhane 0.9% 3 Ml Nebu INH 01/17/25 07:29 PRN PRN SOLN Plan 89-year-old female with past medical history of congestive heart failure, atrial fibrillation on Eliquis, COPD, type 2 diabetes, hyperlipidemia presenting to the ED for dizziness and shortness of breath which has been ongoing for the past 3 days will be admitted for treatment of pulmonary embolism along with thoracentesis for pleural effusions and IV antibiotics for possible superimposed pneumonia. #Acute Hypoxic Respiratory Failure 2/2 Pleural effusion, RT #Bilateral pneumonia #Cocci Pneumonia #History of COPD #History of CHF #Respiratory acidosis COVID-negative As stated above patient has the following findings on imaging 12/19/2024: Patient started on BiPAP for CO2 retention but upon rechecking VBG will discontinue as pH is now alkalotic Last VBG: pH 7.52, pCO2 45, pO2 64 U/S Thoracentesis deferred as patient PTT was too elevated; will reassess for need Blood cultures NG within 24 hours ECHO shows Poor quality images. Normal LV size and wall thickness, Normal LVEF 50-55%. Diastolic dysfunction present but cannot grade to arrhythymia. Septal and lateral wall dysynchrony noted. RV not visulaized well. RV appears normal in size but cannot comment on function. Estimated RVSP, 38 mmHg. RAP 15. Atleast mild PAH. Moderate biatrial dilatation. Dilated IVC. Moderate MR. Mild TR. Mild AV sclerosis without stenosis. Bedside influenza A/B sent, urine Legionella; RSV negative, Cocci IgM positive Last ABG showed pH 7.30, pCO2 83, pO2 80 and HCO3 of 41 Plan: Switched patient from Oxymask to HFNC; ordered BIPAP U/S guided thoracentesis ordered; pending family decision to proceed ICU team contacted; appreciate recommendations Renally dosed IV Diflucan; ID - Dr. Mackenzie consulted Continue IV ceftriaxone azithromycin Pending sputum culture collection Levalbuterol every 6 hour breathing treatments Holding off on IV diuretics at this time, will reassess Daily weights Strict I/Os 1800 fluid restriction #Pulmonary Embolism #Sinus tachycardia likely 2/2 to PE, Pleural effusion and likely PNA Patient presented to the ED with shortness of breath and dizziness which has been ongoing for about 3 days; patient's family denies that she has had fever/chills or any sick contacts In the ED, patient was severely hypoxic requiring supplemental oxygenation with nasal cannula Well's Score of 9.0?points High risk group: 40.6% chance of PE in an ED population. Another study assigned scores > 4 as ?PE Likely? and had a 28% incidence of PE. On chest x-ray there are signs of mild heart failure along with superimposed bilateral pneumonia at the bases Bedside echo evaluation showed good ejection fraction but dilated right atrium along with dilated IVC open (roughly 2 cm without changes with inspiration) EKG showed sinus tachycardia without any concerning ST changes and troponin within normal limits BNP mildly elevated around 300 CT of the chest confirmed pulmonary artery emboli in the lower lobe left lobe with atelectasis and mild to moderate bilateral pleural effusions Plan: Continue heparin drip #RADHA, improving #Hyperkalemia Likely 2/2 to Losartan which was home dose Patient's Cr uptrended since admission from 0.9 to 1.2 Potassium of 5.3 Plan: Holding Losartan Renally dose medications Avoid nephrotoxic agents #Ileus On exam patient had distended abdomen with hypoactive bowel sounds Patient has no BM recorded Plan: Started bowel regimen Additional Fleet enema ordered #Insulin-dependent type 2 diabetes A1c of 7.5 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 as noted in HPI (renal disease?) GFR and Cr are stable Plan: Increased to long-acting 16 units glargine Decreased 2 units lispro Sliding scale; increased parameters. #History of atrial fibrillation #Hyperlipidemia #Hypertension Chronic medical history Plan: Continue diltiazem 90 ER (SR not in formulary) Continue pravastatin 20 mg, aspirin 81 mg Hospital Management: Lines: PIV Diet: Carb consistent low , 1800ml fluid restriction Bowel: Zofran GI prophylaxis: Protonix DVT prophylaxis: On heparin drip Dispo: Treatment for pulmonary embolism, ECHO and thoracentesis for pleural effusion. On IV abx Code: Full Patient seen and examined with attending Dr. Norwood and senior resident Dr. Jen Negro, PGY-1 Attending Provider Attestation/Addendum 89-year-old female with multiple comorbidities including hypertension, hyperlipidemia, type 2 diabetes mellitus, atrial fibrillation on Eliquis and heart failure with preserved EF who came into the ED with shortness of breath found to have bilateral multifocal pneumonia, coccidiomycosis pneumonia, CHF exacerbation and pulmonary embolus. During course of hospitalization, patient started on high flow nasal cannula however continued to have worsening hypoxia and subsequently ICU was consulted. ICU team continues to follow the patient and plan to continue Rocephin, azithromycin, Diflucan, heparin drip in addition to Lasix. Patient continues to be on BiPAP and appreciate intensive care input.I reviewed above note and agree with findings and plans. I have also personally examined the patient with medicine team and went over assessment and plan with medical team including consumer insights intern and resident physician.
[2024-12-21 11:59] LABS: Base Excess 12 (-3-3); HCO3 41 mEq/L (20-26); Inspired Oxygen, FIO2 100 %; O2 Saturation 96 % (91-98); PCO2 83 mmHg (32.0-48.0); PO2 80 mmHg (83-108)
[2024-12-21 12:03] LABS: Allen Test Not Performed; Puncture Site Right Radial
--- NOTE | 2024-12-21 14:06 | PD.RESCONSUL ---
HPI Data of Consult Requesting Physician: Corrina Norwood MD Admitting Provider: Carlos Eduardo Aguila DO Attending Provider: Corrina Norwood MD Primary Care Provider: Physician No Primary/Family Consult Narrative Reason for consult: BANNER History of present illness: Ms. Degroot is a 89-year-old female with past medical history significant for COPD on home O2, congestive heart failure, A-fib on Eliquis who came in to the hospital shortness of breath for the last 3 days on 12/18/2024. Patient also has been bedbound for the last week. In the ED, patient was requiring 4 to 5 L nasal cannula which is more than her home O2 requirements, and later transition to oxy mask 10 L, and today was seen on 40 L of 100% FiO2 on high flow nasal cannula. Throughout hospital stay, patient was found to have bilateral pleural effusion, cocci and superimposed bacterial pneumonia, and subsegmental PE. ICU was consulted for possible thoracentesis. Bedside echo was performed, and showed a possible pocket for successful thoracentesis on the left lung. Spoke to family extensively at bedside about the risks and benefits of the procedure including CODE STATUS. Patient's family will continue to discuss on next steps. Patient initially was seen on 40 L and 100% FiO2 but later able to be weaned down to 40 L and 50% FiO2. cc:: cc: Corrina Norwood MD Exam Vital Signs Temp Pulse Resp BP Pulse Ox O2 Del Method O2 Flow Rate 97.0 F 113 H 26 H 131/73 H 93 L Oxy Mask 40 12/21/24 08:00 12/21/24 12:45 12/21/24 12:45 12/21/24 08:39 12/21/24 12:45 12/21/24 08:00 12/21/24 12:45 FiO2 50 12/21/24 12:45 Narrative Exam General Appearance: Pt in moderate acute distress on high flow nasal cannula laying in bed. Alert and oriented to name and place. HEENT: NC/AT, no scleral icterus, no conjunctival pallor, dry mucous membranes, PERRLA Lungs: Reduced lung sounds bilaterally, right much less than left, no crackles appreciated. CVS: RRR, S1/S2 heard, no murmurs or rubs appreciated ABD: Soft, obese, distended, bowel sounds heard EXT: no deformity/edema/lesions/cyanosis/clubbing, radial pulses 2+ BL, DP pulses 2 + BL SKIN: Skin exam normal without any rashes. Neuro: A&O x 2. No gross neurological deficits. Motor and sensory grossly intact in B/L UL and LL. Psych: Appropriate mood and affect Results Labs 12/21/24 15:26 12/21/24 15:26 Labs: Short CBC 12/21/24 Range/Units 09:30 WBC 10.0 (3.6-11.0) Thou/mm3 Hgb 11.9 L (12.0-16.0) g/dL Hct 38.9 (36.0-46.0) % Plt Count 218 D (140-440) Thou/mm3 BMP 12/21/24 09:30 Sodium 143 Potassium 5.0 Chloride 100 Carbon Dioxide > 40.0 H BUN 20 Creatinine 1.0 Glucose 210 H Calcium 8.5 Liver Function 12/21/24 Range/Units 09:30 Total Bilirubin 0.4 (0.3-1.2) mg/dL AST 16 (0-34) U/L ALT 18 (10-49) U/L Alkaline Phosphatase 56 (46-116) U/L Albumin 4.0 (3.4-4.8) gm/dL Urine 12/20/24 Range/Units 17:45 Urine Color Lt-Yellow (Lt Yel-Yel) Urine Clarity Clear (Clear/Hazy) Urine pH 6.5 (5.0-7.0) Ur Specific [place] 1.025 (1.001-1.035) Urine Protein Trace (Neg - Trace) Urine Glucose (UA) Negative (Negative) ABG Interpretation ABG results: 12/18/24 12/18/24 12/19/24 14:07 19:24 08:30 ABG pH 7.41 7.38 ABG pCO2 62 H 62 H ABG pO2 52 L* 76 L D ABG HCO3 39 H 37 H ABG O2 Saturation 86 L 95 ABG Base Excess 12 H 9 H VBG pH 7.38 VBG pCO2 71 H VBG pO2 34 VBG Base Excess 13 H 12/19/24 12/21/24 11:08 11:50 ABG pH 7.30 L ABG pCO2 83 H* D ABG pO2 80 L ABG HCO3 41 H ABG O2 Saturation 96 ABG Base Excess 12 H VBG pH 7.52 VBG pCO2 45 D VBG pO2 64 H D VBG Base Excess 13 H Quality Measures Quality Measures none Advance care planning discussed with:: patient Medications Home Medications and Allergies Home Medications ?Medication ?Instructions ?Recorded ?Confirmed ?Type apixaban 2.5 mg tablet (Eliquis) 2.5 mg PO BID 12/18/24 12/18/24 History aspirin 81 mg capsule 81 mg PO QDAY 12/18/24 12/18/24 History diltiazem HCl 120 mg 120 mg PO BID 12/18/24 12/18/24 History capsule,extended release 24 hr (Cardizem CD) furosemide 40 mg tablet (Lasix) 40 mg PO BID 12/18/24 12/18/24 History gabapentin 300 mg capsule 300 mg PO BID 12/18/24 12/18/24 History losartan 50 mg tablet (Cozaar) 50 mg PO BID 12/18/24 12/18/24 History pravastatin 20 mg tablet 20 mg PO QDAY 12/18/24 12/18/24 History Allergies Allergy/AdvReac Type Severity Reaction Status Date / Time No Known Allergies Allergy Verified 12/18/24 06:58 Visit Medications Acetaminophen (Acetaminophen 325 Mg Tablet) 650 mg PO Q6H PRN PRN Reason: Fever >101.5 Stop: 01/17/25 12:55 Acetaminophen (Acetaminophen 325 Mg Tablet) 650 mg PO Q6H PRN PRN Reason: PAIN SCALE 1-3 (mild Stop: 01/17/25 12:55 Aspirin (Aspirin Ec 81 Mg Tabec) 81 mg PO QDAY [facility] Stop: 01/18/25 08:59 Last Admin: 12/21/24 08:38 Dose: 81 mg Dextrose (Dextrose 50%-Water Inj 50 Ml Syringe) 25 ml IV Q15MIN PRN PRN Reason: BG 50-70 responsive npo pt Stop: 01/17/25 13:12 Dextrose (Dextrose 50%-Water Inj 50 Ml Syringe) 50 ml IV Q15MIN PRN PRN Reason: BG <50 OR BG <70 & pt unresponsive Stop: 01/17/25 13:12 Last Admin: 12/20/24 16:44 Dose: 50 ml Diltiazem HCl (Diltiazem Er 90 Mg Er Capsule) 90 mg PO BID [facility] Stop: 01/18/25 08:59 Last Admin: 12/21/24 08:39 Dose: 90 mg Glucagon (Glucagon Inj 1 Mg Vial) 1 mg IM Q15MIN PRN PRN Reason: BG <70, and no IV access Ceftriaxone Sodium/Dextrose (Rocephin/D5w 1gm Iv Premix) 50 mls @ 100 mls/hr IV QDAY [facility] Stop: 12/26/24 08:59 Last Admin: 12/21/24 08:40 Dose: 100 mls/hr Azithromycin 500 mg/ Sodium (Chloride) 250 mls @ 250 mls/hr IV QDAY [facility] Stop: 12/26/24 08:59 Last Admin: 12/21/24 09:57 Dose: 250 mls/hr Heparin Sodium/Dextrose (Heparin In D5w Ivpb) 25,000 unit in 250 mls @ 14.696 mls/hr IV .Q17H1M [facility]; Protocol Stop: 01/01/25 16:44 Last Titration: 12/21/24 11:43 Dose: 5 units/kg/hr, 4.082 mls/hr Fluconazole (Diflucan/Ns Ivpb) 200 mg in 100 mls @ 100 mls/hr IV QDAY [facility] Stop: 12/28/24 11:21 Insulin Glargine (Insulin Glargine (Lantus) 5 Unit/0.05 Ml (Per 5 Units)) 16 unit SC [facility] Stop: 01/20/25 20:59 Insulin Human Lispro (Insulin Lispro (Admelog) 1 Unit/0.01 Ml Unit) 0 unit SC ACHS [facility]; Protocol Stop: 01/18/25 16:59 Last Admin: 12/21/24 13:42 Dose: Not Given Insulin Human Lispro (Insulin Lispro (Admelog) 1 Unit/0.01 Ml Unit) 2 unit SC TIDWM [facility] Stop: 01/20/25 07:59 Last Admin: 12/21/24 13:44 Dose: Not Given Levalbuterol HCl (Levalbuterol Rt 0.63 Mg/3 Ml Nebu) 0.63 mg INH Q6HRRT [facility] Stop: 01/19/25 12:59 Last Admin: 12/21/24 12:43 Dose: 0.63 mg Melatonin (Melatonin 3 Mg Tablet) 6 mg PO [facility] Stop: 01/17/25 23:29 Last Admin: 12/20/24 20:56 Dose: 6 mg Pantoprazole Sodium (Pantoprazole Inj 40 Mg Vial) 40 mg IV QDAY [facility] Stop: 01/17/25 15:59 Last Admin: 12/21/24 08:40 Dose: 40 mg Pravastatin Sodium (Pravastatin Sodium 10 Mg Tablet) 20 mg PO HS [facility] Stop: 01/17/25 20:59 Last Admin: 12/20/24 20:56 Dose: 20 mg Quetiapine Fumarate (Quetiapine Fumarate 25 Mg Tablet) 50 mg PO QDAY PRN PRN Reason: AGITATION (MODERATE) Stop: 01/20/25 08:59 Sennosides (Senna Tablet) 1 tab PO QDAY [facility]; Protocol Stop: 01/19/25 09:29 Last Admin: 12/21/24 08:38 Dose: 1 tab Sodium Chloride (Sodium Chloride Rt Zhane 0.9% 3 Ml Nebu) 3 ml INH PRN PRN PRN Reason: SOLN Stop: 01/17/25 07:29 Discontinued Medications Albuterol (Albuterol Rt 2.5 Mg/0.5 Ml Nebu) 10 mg INH X1 ONE Stop: 12/18/24 07:31 Last Admin: 12/18/24 07:53 Dose: 10 mg Albuterol/Ipratropium (Albuterol/Ipratropium (Duoneb) Rt Zhane 3 Ml Nebu) 3 ml INH STAT ONE Stop: 12/21/24 10:57 Last Admin: 12/21/24 11:25 Dose: 3 ml Apixaban (Apixaban 2.5 Mg Tablet) 5 mg PO BID [facility] Stop: 01/17/25 20:59 Olanzapine 5 mg/ Sterile Water (2.1 ml) 0 mg IM QDAY [facility] Stop: 01/18/25 04:52 Last Admin: 12/19/24 05:11 Dose: 5 dose Olanzapine 5 mg/ Sterile Water (2.1 ml) 0 mg IM QDAY [facility] Stop: 01/19/25 00:54 Olanzapine 5 mg/ Sterile Water (2.1 ml) 0 mg IM X1 ONE Stop: 12/20/24 01:05 Last Admin: 12/20/24 01:33 Dose: 1 dose Diltiazem HCl (Diltiazem Er 90 Mg Er Capsule) 90 mg PO QDAY [facility] Stop: 01/18/25 08:59 Diltiazem HCl (Diltiazem Er 90 Mg Er Capsule) 90 mg PO BID [facility] Stop: 01/17/25 20:59 Last Admin: 12/18/24 21:26 Dose: Not Given Diltiazem HCl (Diltiazem Cd 180 Mg Capcr) 180 mg PO BID [facility] Stop: 12/19/24 01:55 Last Admin: 12/18/24 21:44 Dose: 180 mg Diltiazem HCl (Diltiazem Cd 120 Mg Capcr) 120 mg PO BID [facility] Stop: 01/18/25 08:59 Last Admin: 12/19/24 09:55 Dose: 120 mg Heparin Sodium (Porcine) (Heparin Sod Inj 5000 Unit/Ml Vial) 5,000 unit SC Q12HR [facility] Stop: 01/01/25 13:14 Last Admin: 12/18/24 15:48 Dose: Not Given Heparin Sodium (Porcine) (Heparin Sod Inj 5000 Unit/Ml Vial) 6,550 unit 80 unit/kg (6550 unit) IV X1 [facility]; Protocol Stop: 12/18/24 15:47 Last Admin: 12/18/24 17:44 Dose: 6,550 unit Ceftriaxone Sodium/Dextrose (Rocephin/D5w 1gm Iv Premix) 50 mls @ 100 mls/hr IV X1 ONE Stop: 12/18/24 12:22 Last Infusion: 12/18/24 14:31 Dose: Infused Azithromycin 500 mg/ Sodium (Chloride) 250 mls @ 250 mls/hr IV X1 ONE Stop: 12/18/24 14:14 Last Admin: 12/18/24 15:54 Dose: 250 mls/hr Fluconazole (Diflucan/Ns Ivpb) 400 mg in 200 mls @ 100 mls/hr IV Q24H [facility] Stop: 12/26/24 15:29 Last Admin: 12/19/24 17:49 Dose: 100 mls/hr Fluconazole (Diflucan/Ns Ivpb) 200 mg in 100 mls @ 100 mls/hr IV QDAY [facility] Stop: 12/27/24 08:59 Last Admin: 12/21/24 08:39 Dose: 100 mls/hr Fluconazole (Diflucan/Ns Ivpb) 400 mg in 200 mls @ 100 mls/hr IV QDAY [facility] Stop: 12/28/24 11:21 Fluconazole (Diflucan/Ns Ivpb) 400 mg in 200 mls @ 100 mls/hr IV QDAY [facility] Stop: 12/28/24 11:21 Insulin Glargine (Insulin Glargine (Lantus) 5 Unit/0.05 Ml (Per 5 Units)) 10 unit SC HS [facility] Stop: 01/17/25 20:59 Last Admin: 12/18/24 21:47 Dose: 10 unit Insulin Glargine (Insulin Glargine (Lantus) 5 Unit/0.05 Ml (Per 5 Units)) 15 unit SC HS [facility] Stop: 01/18/25 20:59 Last Admin: 12/20/24 20:53 Dose: 15 unit Insulin Human Lispro (Insulin Lispro (Admelog) 1 Unit/0.01 Ml Unit) 3 unit SC TIDWM [facility] Stop: 01/17/25 17:29 Last Admin: 12/20/24 18:02 Dose: Not Given Insulin Human Lispro (Insulin Lispro (Admelog) 1 Unit/0.01 Ml Unit) 0 unit SC AC [facility]; Protocol Stop: 01/17/25 16:59 Last Admin: 12/18/24 18:42 Dose: Not Given Insulin Human Lispro (Insulin Lispro (Admelog) 1 Unit/0.01 Ml Unit) 0 unit SC Q6HR [facility]; Protocol Stop: 01/17/25 17:59 Last Admin: 12/19/24 05:27 Dose: Not Given Ipratropium [place] (Ipratropium Rt 0.5 Mg/ 2.5 Ml Nebu) 1 mg INH X1 ONE Stop: 12/18/24 07:31 Last Admin: 12/18/24 07:54 Dose: 1 mg Levalbuterol HCl (Levalbuterol Rt 0.63 Mg/3 Ml Nebu) 0.63 mg INH Q6HR [facility] Stop: 01/17/25 17:59 Levalbuterol HCl (Levalbuterol Rt 0.63 Mg/3 Ml Nebu) 0.63 mg INH Q8HR [facility] Stop: 01/17/25 21:59 Levalbuterol HCl (Levalbuterol Rt 0.63 Mg/3 Ml Nebu) 0.63 mg INH Q8HRRT [facility] Stop: 01/17/25 14:59 Last Admin: 12/20/24 06:34 Dose: 0.63 mg Losartan Potassium (Losartan Potassium 25 Mg Tablet) 50 mg PO BID [facility] Stop: 01/17/25 20:59 Last Admin: 12/19/24 21:21 Dose: 50 mg Magnesium Hydroxide (Milk Of Magnesia Susp 30 Ml Udc) 30 ml PO QDAY PRN; Protocol PRN Reason: CONSTIPATION Stop: 01/17/25 12:55 Magnesium Hydroxide (Milk Of Magnesia Susp 30 Ml Udc) 30 ml PO X1 ONE; Protocol Stop: 12/20/24 09:20 Last Admin: 12/20/24 11:54 Dose: 30 ml Melatonin (Melatonin 3 Mg Tablet) 6 mg PO HS [facility] Stop: 01/18/25 20:59 Ondansetron HCl (Ondansetron Inj 2 Mg/Ml Inj 2 Ml) 4 mg IV Q6H PRN; Protocol PRN Reason: NAUSEA OR VOMITING Stop: 01/17/25 12:55 Prednisone (Prednisone 20 Mg Tablet) 60 mg PO X1 ONE Stop: 12/18/24 07:31 Last Admin: 12/18/24 07:44 Dose: 60 mg Prednisone (Prednisone 20 Mg Tablet) 40 mg PO QDAY [facility] Stop: 01/18/25 08:59 Last Admin: 12/19/24 09:55 Dose: 40 mg Quetiapine Fumarate (Quetiapine Fumarate 25 Mg Tablet) 25 mg PO X1 ONE Stop: 12/19/24 01:53 Last Admin: 12/19/24 02:16 Dose: 25 mg Quetiapine Fumarate (Quetiapine Fumarate 25 Mg Tablet) 50 mg PO X1 ONE Stop: 12/19/24 03:56 Last Admin: 12/19/24 04:05 Dose: 50 mg Quetiapine Fumarate (Quetiapine Fumarate 25 Mg Tablet) 25 mg PO X1 ONE Stop: 12/19/24 22:17 Last Admin: 12/19/24 22:52 Dose: 25 mg Sodium Chloride (Sodium Chloride Rt 10% 15 Ml Nebu) 5 ml INH X1 ONE Stop: 12/18/24 14:31 Last Admin: 12/19/24 06:50 Dose: Not Given Assessment & Plan Plan Ms. Degroot is a 89-year-old female with past medical history significant for COPD on home O2, congestive heart failure, A-fib on Eliquis who came in to the hospital shortness of breath for the last 3 days on 12/18/2024 and admitted for AHRF 2/2 b/l PNA and b/l pleural effusions. ICU was consulted for possible thoracentesis. NEURO #Acute encephalopathy Patient is alert and oriented x [address]. However, patient is unable to answer or understand certain questions such as severity of her medical problems and her medications that she takes. Per daughter at bedside, patient does appear confused and not at her baseline. Patient's children are her medical decision-makers. CARDIO #Pulmonary Embolism Patient presented to the ED with shortness of breath and dizziness which has been ongoing for about 3 days; patient's family denies that she has had fever/chills or any sick contacts; no recent travel;In the ED, patient was severely hypoxic requiring supplemental oxygenation with nasal cannula Well's Score high, and CTA chest with contrast imaging confirmed pulmonary artery emboli in the lower lobe left lobe -Continue with heparin drip, however will recommend to hold after 5 AM tomorrow, 12/22/2024 and lieu of possible thoracentesis procedure later in the afternoon tomorrow #Sinus tachycardia Differential diagnosis: Most likely in the setting of PE, pleural effusion bilaterally, and infection from pneumonia EKG showed sinus tachycardia without any concerning ST changes and troponin within normal limits CT of the chest showed atelectasis and mild to moderate bilateral pleural effusions -Treat underlying cause with heparin drip, possible thoracentesis, IV antibiotics #History of atrial fibrillation #Hyperlipidemia #Hypertension #Hx of CHF Primary team started patient's home medications as mentioned below. Patient takes Eliquis low-dose twice daily however, and lieu of patient's subsegmental PE, patient is currently on IV heparin, and apixaban is currently held. ECHO shows Poor quality images. Normal LV size and wall thickness, Normal LVEF 50-55%. Diastolic dysfunction present but cannot grade to arrhythymia. Septal and lateral wall dysynchrony noted. RV not visulaized well. RV appears normal in size but cannot comment on function. Estimated RVSP, 38 mmHg. RAP 15. Atleast mild PAH. Moderate biatrial dilatation. Dilated IVC. Moderate MR. Mild TR. Mild AV sclerosis without stenosis. -diltiazem 90 ER (SR not in formulary) -pravastatin 20 mg, aspirin 81 mg -Follow-up daily weight and strict I's and O's -Fluid restriction PULM #Acute Hypoxic Respiratory Failure 2/2 Pleural effusions bilaterally, #Bilateral pneumonia #Cocci Pneumonia #History of COPD Cocci IgM positive, RSV negative pending influenza A/B -Bedside echo was performed, and showed a possible pocket for successful thoracentesis on the left lung. -Spoke to family extensively at bedside about the risks and benefits of the procedure including CODE STATUS. -Recommended primary team to hold heparin drip after 5 AM tomorrow morning, and will reassess patient and [place] back with patient's family regarding decision on whether to proceed with procedure -Continue with IV antibiotics and breathing treatments scheduled GI/FEN #Colonic ileus On exam patient had distended abdomen with hypoactive bowel sounds. Abdominal imaging also showed colonic ileus Patient has no BM recorded -Continue with bowel regimen and escalate as needed RENAL # Acute on chronic respiratory acidosis Patient's recent ABG shows an improvement in pH to 7.32, stable pCO2. However, patient's bicarb suggests patient also has a mixed metabolic alkalosis. -Patient is not hypoxemic, and is saturating well above 88 to 92% on last settings of high flow set to 40 L and 50% FiO2 -Follow-up serial ABGs #Acute kidney insufficiency?resolving Differential diagnosis: Could be in the setting of recent losartan use, poor p.o. intake Patient's Cr uptrended since admission from 0.9 to 1.2, now down trended to 1 -Held losartan -Renally dose medications -Avoid nephrotoxic agents HEME/ONC #Macrocytic anemia Differential diagnosis: Rule out folate or vitamin B12 deficiency MCV 104 -Recommend iron panel -Monitor any signs of bleeding -Monitor H&H daily ENDO #Type 2 diabetes on chronic insulin therapy A1c of 7.5 -Patient on long-acting glargine and sliding scale -Hypoglycemic protocol in place ID #Bilateral pneumonia secondary to superimposed bacterial and cocci -Continue with IV antibiotics, ceftriaxone and azithromycin along with renally dosed fluconazole MSK Stable PSYCH Stable Patient's plan and care discussed with my attending, Dr. Crow Kimball MD PGY-2
[2024-12-21 16:08] LABS: Basophils % (Auto) 0 % (0-2.5); Eosinophils # (Auto) 0.1 Thou/mm3 (0.0-0.5); Eosinophils % (Auto) 1 % (0-10); Hematocrit 36.2 % (36.0-46.0); Hemoglobin 11.1 g/dL (12.0-16.0); Immature Granulocytes % (Auto) 0 % (0-0); Immature Granulocytes Auto 0.01 Thou/mm3 (0.00-0.00); Lymphocytes # (Auto) 0.8 Thou/mm3 (1.0-4.8); Lymphocytes % (Auto) 11 % (10-50); Mean Corpuscular HGB Conc 30.7 g/dl (31.0-37.0); Mean Corpuscular Hemoglobin 31.6 pg (25.0-35.0); Mean Corpuscular Volume 103 fL (80-100); Monocytes # (Auto) 0.7 Thou/mm3 (0.0-0.8); Monocytes % (Auto) 10 % (0-12); Neutrophils # (Auto) 5.5 Thou/mm3 (1.8-7.7); Neutrophils % (Auto) 78 % (37-80); Nucleated Red Blood Cell % 0 /100 WBC (0); Platelet Count 196 Thou/mm3 (140-440); RDW Standard Deviation 58.3 fL (36.4-46.3); Red Blood Count 3.51 Miln/mm3 (4.00-5.20); White Blood Count 7.1 Thou/mm3 (3.6-11.0)
[2024-12-21 16:40] LABS: Alanine Aminotransferase 15 U/L (10-49); Albumin, Serum 3.6 gm/dL (3.4-4.8); Albumin/Globulin Ratio 1.4 (1.2-2.2); Alkaline Phosphatase 54 U/L (46-116); Anion Gap 5 (7-16); Aspartate Amino Transferase 13 U/L (0-34); BUN/Creatinine Ratio 19 Ratio (12-20); Bilirubin,Total 0.3 mg/dL (0.3-1.2); Blood Urea Nitrogen 21 mg/dL (9-23); Calcium 8.3 mg/dL (8.3-10.6); Calcium (Corrected) 8.6 mg/dL (8.5-10.1); Carbon Dioxide 38.6 mMol/L (20.0-31.0); Chloride 100 mMol/L (98-107); Creatinine (Component) 1.1 mg/dL (0.6-1.3); Globulin 2.5 gm/dL (2.3-3.5); Glucose 234 mg/dL (74-106); Osmolality,Calculated 297 (275-295); Potassium 4.8 mMol/L (3.4-5.1); Sodium 144 mMol/L (136-145); Total Protein 6.1 gm/dL (5.7-8.2); eGFR 49 See Note
[2024-12-21 17:10] LABS: Base Excess 13 (-3-3); HCO3 42 mEq/L (20-26); Inspired Oxygen, FIO2 94 %; O2 Saturation 93 % (91-98); PCO2 83 mmHg (32.0-48.0); PO2 69 mmHg (83-108); pH, Arterial 7.32 (7.35-7.45)
[2024-12-21 17:19] LABS: Allen Test Performed/OK; Puncture Site Right Brachial
[2024-12-21 17:21] LABS: Partial Thromboplastin Time 43.9 Seconds (22.0-36.0)
[2024-12-21] MEDS: INSULIN LISPRO (AdmeLOG) 1 UNIT/0.01 ML UNIT SC (18:01)
[2024-12-21] MEDS: HEPARIN SOD INJ 5000 UNIT/ML VIAL 3200 UNIT IVP (18:02)
[2024-12-21] MEDS: PRAVASTATIN SODIUM 10 MG TABLET 20 MG PO (20:38)
[2024-12-21] MEDS: MELATONIN 3 MG TABLET 6 MG PO (20:38)
[2024-12-21] MEDS: bisacodyL 10 MG SUPP PR (20:45)
[2024-12-22] VITALS (18 sets, daily range): BP systolic 99–178; BP diastolic 77–110; PULSE 109–140; RESP 12–37; TEMP 36.1–36.8; O2SAT 94–99; BMI 28.0
[2024-12-22 00:54] LABS: Partial Thromboplastin Time 58.3 Seconds (22.0-36.0)
[2024-12-22] MEDS: LEVALBUTEROL RT 0.63 MG/3 ML NEBU INH ×4 (01:35→18:12)
[2024-12-22] MEDS: QUEtiapine FUMARATE 25 MG TABLET 50 MG PO (03:00)
--- NOTE | 2024-12-22 07:48 | ESPR_ITS ---
Subjective Subjective Interval history: 89 y/o with pleural effusion and suspected chf. unclear if diastolic or systolic. co2 retention noted. procal neg on admit Exam Vital Signs Temp Pulse Resp BP Pulse Ox O2 Del Method O2 Flow Rate 98.3 F 138 H 23 H 104/84 94 L BiPAP 40 12/22/24 04:00 12/22/24 07:06 12/22/24 07:06 12/22/24 04:00 12/22/24 07:06 12/22/24 04:00 12/22/24 04:00 FiO2 60 12/22/24 07:06 Narrative Exam not seen Objective - Internal Medicine Labs 12/21/24 15:26 12/21/24 15:26 Labs: Laboratory Results - last 24 hr 12/21/24 12/21/24 12/21/24 09:30 11:50 15:26 WBC 10.0 7.1 RBC 3.76 L 3.51 L Hgb 11.9 L 11.1 L Hct 38.9 36.2 MCV 104 H 103 H MCH 31.6 31.6 MCHC 30.6 L 30.7 L RDW Std Deviation 59.0 H 58.3 H Plt Count 218 D 196 Neut % (Auto) 78 78 Lymph % (Auto) 11 11 [place]kinson % (Auto) 10 10 Eos % (Auto) 1 1 Baso % (Auto) 0 0 Neut # (Auto) 7.8 H 5.5 Lymph # (Auto) 1.1 0.8 L [place] # (Auto) 1.0 H 0.7 Eos # (Auto) 0.1 0.1 Baso # (Auto) 0.0 0.0 Immature Gran # (Auto) 0.03 H 0.01 H Absolute Nucleated RBC 0.00 0.00 Immature Gran % 0 0 Nucleated RBC % 0 0 APTT 128.4 H* D Puncture Site Right Radial ABG pH 7.30 L ABG pCO2 83 H* D ABG pO2 80 L ABG HCO3 41 H ABG O2 Saturation 96 ABG Base Excess 12 H FiO2 100 Sodium 143 144 Potassium 5.0 4.8 Chloride 100 100 Carbon Dioxide > 40.0 H 38.6 H Anion Gap 3 L 5 L BUN 20 21 Creatinine 1.0 1.1 Estim Creat Clear Calc 45.0 L 41.0 L eGFR 55 L 49 L BUN/Creatinine Ratio 20 19 Glucose 210 H 234 H Calculated Osmolality 293 297 H Calcium 8.5 8.3 Corrected Calcium 8.5 8.6 Total Bilirubin 0.4 0.3 AST 16 13 ALT 18 15 Alkaline Phosphatase 56 54 Total Protein 6.7 6.1 Albumin 4.0 3.6 Globulin 2.7 2.5 Albumin/Globulin Ratio 1.5 1.4 12/21/24 12/21/24 12/22/24 16:51 17:01 00:16 WBC RBC Hgb Hct MCV MCH MCHC RDW Std Deviation Plt Count Neut % (Auto) Lymph % (Auto) [place] % (Auto) Eos % (Auto) Baso % (Auto) Neut # (Auto) Lymph # (Auto) [place] # (Auto) Eos # (Auto) Baso # (Auto) Immature Gran # (Auto) Absolute Nucleated RBC Immature Gran % Nucleated RBC % APTT 43.9 H D 58.3 H D Puncture Site Right Brachial ABG pH 7.32 L ABG pCO2 83 H* ABG pO2 69 L ABG HCO3 42 H ABG O2 Saturation 93 ABG Base Excess 13 H FiO2 94 Sodium Potassium Chloride Carbon Dioxide Anion Gap BUN Creatinine Estim Creat Clear Calc eGFR BUN/Creatinine Ratio Glucose Calculated Osmolality Calcium Corrected Calcium Total Bilirubin AST ALT Alkaline Phosphatase Total Protein Albumin Globulin Albumin/Globulin Ratio ABG Interpretation ABG results: 12/18/24 12/18/24 12/19/24 14:07 19:24 08:30 ABG pH 7.41 7.38 ABG pCO2 62 H 62 H ABG pO2 52 L* 76 L D ABG HCO3 39 H 37 H ABG O2 Saturation 86 L 95 ABG Base Excess 12 H 9 H VBG pH 7.38 VBG pCO2 71 H VBG pO2 34 VBG Base Excess 13 H 12/19/24 12/21/24 12/21/24 11:08 11:50 17:01 ABG pH 7.30 L 7.32 L ABG pCO2 83 H* D 83 H* ABG pO2 80 L 69 L ABG HCO3 41 H 42 H ABG O2 Saturation 96 93 ABG Base Excess 12 H 13 H VBG pH 7.52 VBG pCO2 45 D VBG pO2 64 H D VBG Base Excess 13 H Assessment & Plan A&P Narrative 89 y/o with effusion and possible pneumonia with a neg procal. had 3d of azithro 500 already. so time to stop that. cocci pos IgM. so far only. test pending at [facility] changed to all po regimen. home at your discretion. I will see tuesday if she remains. ok to stop flucon if cocci neg at d but that is likely to be next week some time. repeat cxr in 4-6 weeks. later if cocci positive. ok to add bnp to eval given echo findings Time Spent With Patient Time: Total time spent is greater than 50% in coordination of care (as documented) at patient's floor/unit and/or counseling patient:
[2024-12-22] MEDS: INSULIN LISPRO (AdmeLOG) 1 UNIT/0.01 ML UNIT SC ×2 (07:51→16:07)
[2024-12-22 07:58] LABS: Base Excess 14 (-3-3); HCO3 41 mEq/L (20-26); Inspired Oxygen, FIO2 60 %; O2 Saturation 93 % (91-98); PCO2 63 mmHg (32.0-48.0); PO2 63 mmHg (83-108); pH, Arterial 7.42 (7.35-7.45)
[2024-12-22 07:59] LABS: Allen Test Performed/OK; Puncture Site Left Radial
[2024-12-22] MEDS: INSULIN LISPRO (AdmeLOG) 1 UNIT/0.01 ML UNIT 2 UNIT SC ×2 (08:00→16:08)
[2024-12-22] MEDS: ASPIRIN EC 81 MG TABEC PO (09:27)
[2024-12-22] MEDS: SENNA TABLET 1 TAB PO (09:27)
[2024-12-22] MEDS: cefuroxime axetiL 250 MG TABLET 500 MG PO ×2 (09:27→20:13)
[2024-12-22] MEDS: FLUCONAZOLE 100 MG TABLET 200 MG PO ×2 (09:28→20:13)
[2024-12-22] MEDS: DILTIAZEM ER 90 MG ER CAPSULE PO ×2 (09:28→20:12)
--- NOTE | 2024-12-22 09:37 | XR_ITS ---
Examination: AP chest single view Technique one AP portable chest single view Exam date and time: December 2024 1157 hrs. Comparison December 21, 2024 Indications: Onset shortness of breath today Findings: Heart failure pattern Moderate enlargement cardiac contour with prominent vascular congestion and perihilar edema Consider superimposed pneumonia in the left lung Impression: Moderate heart failure pattern Consider superimposed left lung pneumonia
--- NOTE | 2024-12-22 09:39 | EKG_ITS ---
[facility] Test Date: 2024-12-22 Pat Name: MELVIN GASPAR [facility] Utility Hand: LUIS : 1935 Requested By: Corrina Jalloh Order Number: [id number] Reading MD: Corrina Jalloh Measurements Intervals [place] Rate: 119 P: TN: QRS: 46 QRSD: 96 T: 30 QT: 324 QTc: 456 Interpretive Statements ATRIAL FIBRILLATION WITH RAPID VENTRICULAR RESPONSE LOW QRS VOLTAGE IN EXTREMITY LEADS ABNORMAL RHYTHM ECG Compared to ECG 12/18/2024 07:29:35 Low QRS voltage now present Atrial flutter no longer present ST (T wave) deviation no longer present /store/S0/[id number]
[2024-12-22 10:07] LABS: Basophils % (Auto) 0 % (0-2.5); Eosinophils # (Auto) 0.1 Thou/mm3 (0.0-0.5); Eosinophils % (Auto) 1 % (0-10); Hematocrit 37.6 % (36.0-46.0); Hemoglobin 11.9 g/dL (12.0-16.0); Immature Granulocytes % (Auto) 0 % (0-0); Immature Granulocytes Auto 0.02 Thou/mm3 (0.00-0.00); Lymphocytes # (Auto) 0.9 Thou/mm3 (1.0-4.8); Lymphocytes % (Auto) 13 % (10-50); Mean Corpuscular HGB Conc 31.6 g/dl (31.0-37.0); Mean Corpuscular Hemoglobin 31.6 pg (25.0-35.0); Mean Corpuscular Volume 100 fL (80-100); Monocytes # (Auto) 0.8 Thou/mm3 (0.0-0.8); Monocytes % (Auto) 12 % (0-12); Neutrophils % (Auto) 74 % (37-80); Nucleated Red Blood Cell % 0 /100 WBC (0); Platelet Count 182 Thou/mm3 (140-440); RDW Standard Deviation 54.3 fL (36.4-46.3); Red Blood Count 3.77 Miln/mm3 (4.00-5.20); White Blood Count 6.8 Thou/mm3 (3.6-11.0)
[2024-12-22 10:24] LABS: Alanine Aminotransferase 16 U/L (10-49); Albumin, Serum 3.8 gm/dL (3.4-4.8); Albumin/Globulin Ratio 1.4 (1.2-2.2); Alkaline Phosphatase 55 U/L (46-116); Anion Gap 2 (7-16); Aspartate Amino Transferase 11 U/L (0-34); BUN/Creatinine Ratio 20 Ratio (12-20); Bilirubin,Total 0.6 mg/dL (0.3-1.2); Blood Urea Nitrogen 18 mg/dL (9-23); Calcium 8.7 mg/dL (8.3-10.6); Calcium (Corrected) 8.9 mg/dL (8.5-10.1); Carbon Dioxide 39.9 mMol/L (20.0-31.0); Chloride 100 mMol/L (98-107); Creatinine (Component) 0.9 mg/dL (0.6-1.3); Globulin 2.7 gm/dL (2.3-3.5); Glucose 157 mg/dL (74-106); Osmolality,Calculated 288 (275-295); Potassium 4.1 mMol/L (3.4-5.1); Sodium 142 mMol/L (136-145); Total Protein 6.5 gm/dL (5.7-8.2); eGFR > 60 See Note
--- NOTE | 2024-12-22 13:13 | ESPR_ITS ---
<Statement entered by Tani Li MD - 12/23/24 02:01> I discussed with and supervised the internal communications specialist physician involved in the care of this patient. Patient assessment and plan was discussed with entire medicine team, including my attending. I agree with the assessment and plan as documented by internal communications specialist doctor. Patient care was discussed with my attending physician Dr. Cuco Li, PGY-2 Documentation for date of: 12/22/24 Subjective Subjective Interval history: 12/22/2024: No acute overnight events reported. Patient seen and examined in a.m. on BiPAP saturating well. ICU team was contacted for possible ultrasound-guided thoracentesis; however, upon discussion with family decision was made not to proceed with an invasive therapy. Patient continues to have tachycardia; EKG was ordered which showed atrial tachycardia likely multifocal atrial tachycardia versus atrial fibrillation. Patient was started on diltiazem drip at 5 mL/h along with the diltiazem ER 90 mg twice daily, cardiology was consulted for recommendations. Patient continues to be treated with fluconazole for the cocci pneumonia. ID was consulted and started the patient on cefuroxime. Patient also continues to have heparin drip for the small subsegmental PE. Exam Vital Signs Temp Pulse Resp BP Pulse Ox O2 Del Method O2 Flow Rate 97.0 F 140 H 22 H 178/110 H 97 BiPAP 6 12/22/24 08:00 12/22/24 12:36 12/22/24 12:36 12/22/24 09:28 12/22/24 12:36 12/22/24 08:00 12/22/24 12:36 FiO2 60 12/22/24 07:06 Narrative Exam Physical Exam: GENERAL: Awake, restless in respiratory distress, appears stated age HEENT: NC/AT. Moist mucosa. PERRLA/EOMI. CARDIO: Heart RRR, no obvious murmurs, no JVD. PULM: No coughing but appears SOB with Oxy Mask. Lungs have reduced breath sounds at bases but otherwise CTA B/L GI: Abdomen soft but distended, NT, +BS. SKIN/MSK/EXT: No wounds/discoloration/rashes/edema/amputations. +Pedal pulses present B/L. NEURO: Oriented x3, Moves extremities x4 and no focal neurological deficits. Objective Labs 12/25/24 05:05 12/25/24 05:05 Labs: Laboratory Results - last 24 hr 12/21/24 12/21/24 12/21/24 15:26 16:51 17:01 WBC 7.1 RBC 3.51 L Hgb 11.1 L Hct 36.2 MCV 103 H MCH 31.6 MCHC 30.7 L RDW Std Deviation 58.3 H Plt Count 196 Neut % (Auto) 78 Lymph % (Auto) 11 [place] % (Auto) 10 Eos % (Auto) 1 Baso % (Auto) 0 Neut # (Auto) 5.5 Lymph # (Auto) 0.8 L [place] # (Auto) 0.7 Eos # (Auto) 0.1 Baso # (Auto) 0.0 Immature Gran # (Auto) 0.01 H Absolute Nucleated RBC 0.00 Immature Gran % 0 Nucleated RBC % 0 APTT 43.9 H D Puncture Site Right Brachial ABG pH 7.32 L ABG pCO2 83 H* ABG pO2 69 L ABG HCO3 42 H ABG O2 Saturation 93 ABG Base Excess 13 H FiO2 94 Sodium 144 Potassium 4.8 Chloride 100 Carbon Dioxide 38.6 H Anion Gap 5 L BUN 21 Creatinine 1.1 Estim Creat Clear Calc 41.0 L eGFR 49 L BUN/Creatinine Ratio 19 Glucose 234 H Calculated Osmolality 297 H Calcium 8.3 Corrected Calcium 8.6 Total Bilirubin 0.3 AST 13 ALT 15 Alkaline Phosphatase 54 Total Protein 6.1 Albumin 3.6 Globulin 2.5 Albumin/Globulin Ratio 1.4 12/22/24 12/22/24 12/22/24 00:16 07:15 09:44 WBC 6.8 RBC 3.77 L Hgb 11.9 L Hct 37.6 MCV 100 MCH 31.6 MCHC 31.6 RDW Std Deviation 54.3 H Plt Count 182 Neut % (Auto) 74 Lymph % (Auto) 13 [place] % (Auto) 12 Eos % (Auto) 1 Baso % (Auto) 0 Neut # (Auto) 5.0 Lymph # (Auto) 0.9 L [place] # (Auto) 0.8 Eos # (Auto) 0.1 Baso # (Auto) 0.0 Immature Gran # (Auto) 0.02 H Absolute Nucleated RBC 0.00 Immature Gran % 0 Nucleated RBC % 0 APTT 58.3 H D Puncture Site Left Radial ABG pH 7.42 D ABG pCO2 63 H D ABG pO2 63 L ABG HCO3 41 H ABG O2 Saturation 93 ABG Base Excess 14 H FiO2 60 Sodium 142 Potassium 4.1 D Chloride 100 Carbon Dioxide 39.9 H Anion Gap 2 L BUN 18 Creatinine 0.9 Estim Creat Clear Calc 50.0 L eGFR > 60 BUN/Creatinine Ratio 20 Glucose 157 H D Calculated Osmolality 288 Calcium 8.7 Corrected Calcium 8.9 Total Bilirubin 0.6 AST 11 ALT 16 Alkaline Phosphatase 55 Total Protein 6.5 Albumin 3.8 Globulin 2.7 Albumin/Globulin Ratio 1.4 ABG Interpretation ABG results: 12/18/24 12/18/24 12/19/24 14:07 19:24 08:30 ABG pH 7.41 7.38 ABG pCO2 62 H 62 H ABG pO2 52 L* 76 L D ABG HCO3 39 H 37 H ABG O2 Saturation 86 L 95 ABG Base Excess 12 H 9 H VBG pH 7.38 VBG pCO2 71 H VBG pO2 34 VBG Base Excess 13 H 12/19/24 12/21/24 12/21/24 11:08 11:50 17:01 ABG pH 7.30 L 7.32 L ABG pCO2 83 H* D 83 H* ABG pO2 80 L 69 L ABG HCO3 41 H 42 H ABG O2 Saturation 96 93 ABG Base Excess 12 H 13 H VBG pH 7.52 VBG pCO2 45 D VBG pO2 64 H D VBG Base Excess 13 H 12/22/24 07:15 ABG pH 7.42 D ABG pCO2 63 H D ABG pO2 63 L ABG HCO3 41 H ABG O2 Saturation 93 ABG Base Excess 14 H VBG pH VBG pCO2 VBG pO2 VBG Base Excess Quality Measures Quality Measures none Advance care planning discussed with:: patient Assessment & Plan Assessment Current Active Medications: Generic Name Dose Route Start Last Admin Trade Name Freq PRN Reason Stop Dose Admin Acetaminophen 650 mg 12/18/24 12:56 Acetaminophen 325 Mg Tablet PO 01/17/25 12:55 Q6H PRN Fever >101.5 Acetaminophen 650 mg 12/18/24 12:56 Acetaminophen 325 Mg Tablet PO 01/17/25 12:55 Q6H PRN PAIN SCALE 1-3 (mild Aspirin 81 mg 12/19/24 09:00 12/22/24 09:27 Aspirin Ec 81 Mg Tabec PO 01/18/25 08:59 81 mg QDAY SARA Administration Cefuroxime Axetil 500 mg 12/22/24 09:00 12/22/24 09:27 Cefuroxime Axetil 250 Mg Tablet PO 12/23/24 22:00 500 mg BID SARA Administration Dextrose 25 ml 12/18/24 13:13 Dextrose 50%-Water Inj 50 Ml Syringe IV 01/17/25 13:12 Q15MIN PRN BG 50-70 responsive npo pt Dextrose 50 ml 12/18/24 13:13 12/20/24 16:44 Dextrose 50%-Water Inj 50 Ml Syringe IV 01/17/25 13:12 50 ml Q15MIN PRN Administration BG <50 OR BG <70 & pt unresponsive Diltiazem HCl 90 mg 12/19/24 21:00 12/22/24 09:28 Diltiazem Er 90 Mg Er Capsule PO 01/18/25 08:59 90 mg BID SARA Administration Fluconazole 200 mg 12/22/24 09:00 12/22/24 09:28 Fluconazole 100 Mg Tablet PO 12/31/24 12:00 200 mg BID SARA Administration Glucagon 1 mg 12/18/24 13:13 Glucagon Inj 1 Mg Vial IM Q15MIN PRN BG <70, and no IV access Heparin Sodium/Dextrose 25,000 unit in 250 mls @ 14.696 mls/hr 12/18/24 16:45 12/22/24 12:44 Heparin In D5w Ivpb IV 01/01/25 16:44 7 units/kg/hr .Q17H1M SARA 5.715 mls/hr Titration Protocol 18 UNITS/KG/HR Diltiazem HCl 125 mg/ Dextrose 125 mls @ 5 mls/hr 12/22/24 12:30 IV 01/21/25 12:29 .Q24H [facility] Insulin Glargine 16 unit 12/21/24 21:00 12/21/24 20:27 Insulin Glargine (Lantus) 5 Unit/0.05 Ml (Per 5 Units) SC 01/20/25 20:59 Not Given HS [facility] Insulin Human Lispro 0 unit 12/19/24 17:00 12/22/24 11:29 Insulin Lispro (Admelog) 1 Unit/0.01 Ml Unit SC 01/18/25 16:59 Not Given ACHS [facility] Protocol Insulin Human Lispro 2 unit 12/21/24 08:00 12/22/24 12:09 Insulin Lispro (Admelog) 1 Unit/0.01 Ml Unit SC 01/20/25 07:59 Not Given TIDWM SARA Levalbuterol HCl 0.63 mg 12/20/24 13:00 12/22/24 12:35 Levalbuterol Rt 0.63 Mg/3 Ml Nebu INH 01/19/25 12:59 0.63 mg Q6HRRT SARA Administration Melatonin 6 mg 12/18/24 23:30 12/21/24 20:38 Melatonin 3 Mg Tablet PO 01/17/25 23:29 6 mg HS SARA Administration Pravastatin Sodium 20 mg 12/18/24 21:00 12/21/24 20:38 Pravastatin Sodium 10 Mg Tablet PO 01/17/25 20:59 20 mg HS SARA Administration Quetiapine Fumarate 50 mg 12/20/24 16:56 12/22/24 03:00 Quetiapine Fumarate 25 Mg Tablet PO 01/20/25 08:59 50 mg QDAY PRN Administration AGITATION (MODERATE) Sennosides 1 tab 12/20/24 09:30 12/22/24 09:27 Senna Tablet PO 01/19/25 09:29 1 tab QDAY SARA Administration Protocol Sodium Chloride 3 ml 12/18/24 07:30 Sodium Chloride Rt Zhane 0.9% 3 Ml Nebu INH 01/17/25 07:29 PRN PRN SOLN Plan 89-year-old female with past medical history of congestive heart failure, atrial fibrillation on Eliquis, COPD, type 2 diabetes, hyperlipidemia presenting to the ED for dizziness and shortness of breath which has been ongoing for the past 3 days will be admitted for treatment of pulmonary embolism along with thoracentesis for pleural effusions and IV antibiotics for possible superimposed pneumonia. #Acute Hypoxic Respiratory Failure 2/2 Pleural effusion, RT #Bilateral pneumonia #Cocci Pneumonia #History of COPD #History of CHF #Respiratory acidosis COVID-negative As stated above patient has the following findings on imaging 12/19/2024: Patient started on BiPAP for CO2 retention but upon rechecking VBG will discontinue as pH is now alkalotic Last VBG: pH 7.52, pCO2 45, pO2 64 U/S Thoracentesis deferred as patient PTT was too elevated; will reassess for need Blood cultures NG within 24 hours ECHO shows Poor quality images. Normal LV size and wall thickness, Normal LVEF 50-55%. Diastolic dysfunction present but cannot grade to arrhythymia. Septal and lateral wall dysynchrony noted. RV not visulaized well. RV appears normal in size but cannot comment on function. Estimated RVSP, 38 mmHg. RAP 15. Atleast mild PAH. Moderate biatrial dilatation. Dilated IVC. Moderate MR. Mild TR. Mild AV sclerosis without stenosis. Bedside influenza A/B sent, urine Legionella; RSV negative, Cocci IgM positive Last ABG showed pH 7.30, pCO2 83, pO2 80 and HCO3 of 41 U/S guided thoracentesis cancelled, patient's family would not like invasive therapies Plan: Patient currently on Oxy Mask Renally dosed IV Diflucan; ID - Dr. Mackenzie consulted Dr. Mackenzie started patient on Cefuroxime Levalbuterol every 6 hour breathing treatments Daily weights Strict I/Os 1800 fluid restriction #Atrial tachycardia #Likely Multifocal tachycardia vs. Afib Patient has sustained tachycardia EKG reads as atrial fibrillation, but there are clear P-waves seen Cardiology, Dr. Corona, consulted - appreciate recommendations Plan: Patient on Diltiazem 90mg ER po BID Started the patient on Dilt gtt 5mls/hr #Pulmonary Embolism #Sinus tachycardia likely 2/2 to PE, Pleural effusion and likely PNA Patient presented to the ED with shortness of breath and dizziness which has been ongoing for about 3 days; patient's family denies that she has had fever/chills or any sick contacts In the ED, patient was severely hypoxic requiring supplemental oxygenation with nasal cannula Well's Score of 9.0?points High risk group: 40.6% chance of PE in an ED population. Another study assigned scores > 4 as ?PE Likely? and had a 28% incidence of PE. On chest x-ray there are signs of mild heart failure along with superimposed bilateral pneumonia at the bases Bedside echo evaluation showed good ejection fraction but dilated right atrium along with dilated IVC open (roughly 2 cm without changes with inspiration) EKG showed sinus tachycardia without any concerning ST changes and troponin within normal limits BNP mildly elevated around 300 CT of the chest confirmed pulmonary artery emboli in the lower lobe left lobe with atelectasis and mild to moderate bilateral pleural effusions Plan: Continue heparin drip #RADHA, improving #Hyperkalemia Likely 2/2 to Losartan which was home dose Patient's Cr uptrended since admission from 0.9 to 1.2 - now downtrending Potassium of 5.3 --> 4.1 Plan: Restarting Losartan Renally dose medications Avoid nephrotoxic agents #Ileus On exam patient had distended abdomen with hypoactive bowel sounds Patient has no BM recorded Plan: Continue bowel regimen Added GoLytely #Insulin-dependent type 2 diabetes A1c of 7.5 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 as noted in HPI (renal disease?) GFR and Cr are stable Plan: Continue long-acting 16 units glargine Continue 2 units lispro SSI #History of atrial fibrillation #Hyperlipidemia #Hypertension Chronic medical history Plan: Continue diltiazem 90 ER (SR not in formulary) Continue pravastatin 20 mg, aspirin 81 mg Hospital Management: Lines: PIV Diet: Carb consistent low , 1800ml fluid restriction Bowel: Zofran GI prophylaxis: Protonix DVT prophylaxis: On heparin drip Dispo: Treatment for pulmonary embolism, ECHO and thoracentesis for pleural effusion. On IV abx Code: Full Patient seen and examined with attending Dr. Norwood and senior resident Dr. Jen Negro, PGY-1 Attending Provider Attestation/Addendum 89-year-old female with multiple comorbidities including hypertension, hyperlipidemia, type 2 diabetes mellitus, atrial fibrillation on Eliquis and heart failure with preserved EF who came into the ED with shortness of breath found to have bilateral multifocal pneumonia, coccidiomycosis pneumonia, CHF exacerbation and pulmonary embolus. During course of hospitalization, patient started on high flow nasal cannula however continued to have worsening hypoxia and subsequently ICU was consulted. ICU team continues to follow the patient and plan to continue Rocephin, azithromycin, Diflucan, heparin drip in addition to Lasix. Patient continues to be on BiPAP and appreciate intensive care input.I reviewed above note and agree with findings and plans. Overnight, patient continued to have bilateral pleural effusion and plan was to obtain a thoracentesis however family refused. Will respect their wishes. Continue BiPAP therapy and monitor closely as there is a risk for worsening respiratory compromise and possible risk of intubation. I have also personally examined the patient with medicine team and went over assessment and plan with medical team including internal communications specialist and resident physician.
[2024-12-22] MEDS: DILTIAZEM INJ 125 MG in DEXTROSE 5%-WATER 100 ML IV (13:34)
--- NOTE | 2024-12-22 15:20 | PC.NURSE ---
Per Vu, pharmacy order PTT in 6 hrs and hold bolus, as Heparin was just restarted
[2024-12-22] MEDS: FUROSEMIDE INJ 10 MG/ML 4ML VIAL 40 MG IVP (15:54)
[2024-12-22] MEDS: Heparin/D5w 25K 250 ML Ivpb 25,000 UNIT/250 ML BAG 5.715 UNIT IV (17:56)
[2024-12-22] MEDS: MELATONIN 3 MG TABLET 6 MG PO (20:13)
[2024-12-22] MEDS: PRAVASTATIN SODIUM 10 MG TABLET 20 MG PO (20:13)
[2024-12-22] MEDS: NA SU/NAHCO3/KC/PEG (Golytely) 4,000 ML BTL 4000 ML PO (20:13)
[2024-12-22] MEDS: LOSARTAN POTASSIUM 25 MG TABLET 50 MG PO (20:13)
[2024-12-22] MEDS: INSULIN GLARGINE (Lantus) 5 UNIT/0.05 ML (PER 5 UNITS) 16 UNIT SC (20:14)
[2024-12-22 21:51] LABS: Partial Thromboplastin Time 32.8 Seconds (22.0-36.0)
[2024-12-22] MEDS: HEPARIN SOD INJ 5000 UNIT/ML VIAL 6500 UNIT IV (22:24)
--- NOTE | 2024-12-22 22:47 | ESCONSULT_ITS ---
HPI Data of Consult Requesting Physician: Corrina Norwood MD Admitting Provider: Carlos Eduardo Aguila DO Attending Provider: Corrina Norwood MD Primary Care Provider: Physician No Primary/Family Consult Narrative History of present illness: Ms. Degroot is a 89-year-old female with past medical history significant for insulin-dependent type 2 diabetes, hyperlipidemia, COPD on home O2, congestive heart failure, A-fib on Eliquis presented to the hospital on 12/18/24 complaining of shortness of breath for 3 days prior to ED arrival. Patient's son is at bedside and majority of history is taken from him as patient is currently saturating on BiPAP and unable to speak and express clearly. Per son patient usually lives with each of her daughters in different cities she is currently visiting from [place]. Patient have been complaining of increasingly worsening shortness of breath, dizziness and generalized weakness. Which has caused the patient to become more bedbound in the last 1 week and unable to ambulate. Prior to the 1 week patient was able to walk around the house using a walker. Patient denied any recent illnesses or hospitalizations patient denies any sick contacts and recent travels other than coming to live in [place] from [place] however this moved is not per minute as patient typically lives at each of her children's home at a certain time of the year. PMH: Insulin-dependent type 2 diabetes, hyperlipidemia, COPD, congestive heart failure, A-fib PSH: Unable to confirm which type of surgery she has had however recent years she has had no surgeries SH: Patient denies tobacco use, alcohol or illicit drug use Home medications: Medications: Lasix 40 mg p.o. twice daily, Eliquis 5 mg p.o. twice daily, losartan 50 mg p.o., diltiazem SR 120 mg, aspirin 81 mg, pravastatin 20 mg, long-acting insulin 25 units at bedtime Allergies: No known drug allergies In the ED on12/18/24: Blood pressure 162/92, heart rate 138, respirations 24, oxygen saturation 72% on room air. CBC unremarkable and's chemistry findings included bicarb 35.6, sodium 146, BUN to creatinine ratio 23, glucose 49, BNP 329 Chest x-ray findings 12/18 include mild heart failure, consider superimposed pneumonia at the lung base, significant right pleural effusions EKG on 12/18/2024-atrial flutter with rapid ventricular response and moderate ST depressions EKG on 12/22/2024-A-fib with RVR Echocardiogram on 12/18/2024 findings include: Poor quality images. Normal LV size and wall thickness, Normal LVEF 50-55%. Diastolic dysfunction present but cannot grade to arrhythymia. Septal and lateral wall dysynchrony noted. RV not visulaized well. RV appears normal in size but cannot comment on function. Estimated RVSP, 38 mmHg. RAP 15. Atleast mild PAH Moderate biatrial dilatation. Dilated IVC. Moderate MR. Mild TR. Mild AV sclerosis without stenosis. Chest CTA done on 12/18/2024: Findings are consistent with pulmonary artery emboli lower lobe left pulmonary artery branches, Atelectasis versus pneumonia at the lung bases, Mild to moderate bilateral pleural effusions During hospitalization patient was started on IV antibiotics and an attempt to drain the right pleural effusions was made however per IR no feasible site for thoracentesis. Patient was also started on heparin drip due to pulmonary embolism found on CTA on 12/18 Over the course of hospitalization patient became increasingly hypoxic and was transitioned to BiPAP however patient was not improved and ICU team was consulted for worsening oxygenation and increased work of breathing at this time patient is not intubated but most recent EKG showed A-fib with RVR therefore cardiology is consulted. cc:: cc: Corrina Norwood MD Review of Systems Review of Systems Systems Reviewed: All systems reviewed, normal except as documented Exam Vital Signs Temp Pulse Resp BP Pulse Ox O2 Del Method O2 Flow Rate 97.0 F 122 H 17 170/98 H 94 L Oxy Mask 6 12/22/24 20:00 12/22/24 20:13 12/22/24 20:00 12/22/24 20:13 12/22/24 20:00 12/22/24 20:00 12/22/24 20:00 FiO2 100 12/22/24 20:00 Narrative Exam GENERAL: A&Ox3 . Awake, Not in acute distress, currently on BiPAP NEURO: no focal neurological deficits HEENT: Atraumatic, Normocephalic. mucous membranes moist. Eyes open, symmetrical, & clear HEART: Normal Heart Sounds LUNGS: decreased breath sounds bilaterally ABDOMEN: soft, non-distended, non-tender, bowel sounds heard, no guarding or rebound tenderness SKIN: No Rash or ecchymoses EXTREMITIES: No edema, tenderness, able to move all 4 extremities, pedal pulses palpated Results Labs 12/22/24 09:44 12/22/24 09:44 Labs: Short CBC 12/22/24 Range/Units 09:44 WBC 6.8 (3.6-11.0) Thou/mm3 Hgb 11.9 L (12.0-16.0) g/dL Hct 37.6 (36.0-46.0) % Plt Count 182 (140-440) Thou/mm3 BMP 12/22/24 09:44 Sodium 142 Potassium 4.1 D Chloride 100 Carbon Dioxide 39.9 H BUN 18 Creatinine 0.9 Glucose 157 H D Calcium 8.7 Liver Function 12/22/24 Range/Units 09:44 Total Bilirubin 0.6 (0.3-1.2) mg/dL AST 11 (0-34) U/L ALT 16 (10-49) U/L Alkaline Phosphatase 55 (46-116) U/L Albumin 3.8 (3.4-4.8) gm/dL ABG Interpretation ABG results: 12/18/24 12/18/24 12/19/24 14:07 19:24 08:30 ABG pH 7.41 7.38 ABG pCO2 62 H 62 H ABG pO2 52 L* 76 L D ABG HCO3 39 H 37 H ABG O2 Saturation 86 L 95 ABG Base Excess 12 H 9 H VBG pH 7.38 VBG pCO2 71 H VBG pO2 34 VBG Base Excess 13 H 12/19/24 12/21/24 12/21/24 11:08 11:50 17:01 ABG pH 7.30 L 7.32 L ABG pCO2 83 H* D 83 H* ABG pO2 80 L 69 L ABG HCO3 41 H 42 H ABG O2 Saturation 96 93 ABG Base Excess 12 H 13 H VBG pH 7.52 VBG pCO2 45 D VBG pO2 64 H D VBG Base Excess 13 H 12/22/24 07:15 ABG pH 7.42 D ABG pCO2 63 H D ABG pO2 63 L ABG HCO3 41 H ABG O2 Saturation 93 ABG Base Excess 14 H VBG pH VBG pCO2 VBG pO2 VBG Base Excess Quality Measures Quality Measures none Advance care planning discussed with:: patient and child Medications Home Medications and Allergies Home Medications ?Medication ?Instructions ?Recorded ?Confirmed ?Type apixaban 2.5 mg tablet (Eliquis) 2.5 mg PO BID 5 12/18/24 History aspirin 81 mg capsule 81 mg PO QDAY 12/18/2412/18 History diltiazem HCl 120 mg 120 mg PO BID 12/18/2412/18 History capsule,extended release 24 hr (Cardizem CD) furosemide 40 mg tablet (Lasix) 40 mg PO BID 12/18/24 12/18/24 History gabapentin 300 mg capsule 300 mg PO BID 12/18/2412/18 History losartan 50 mg tablet (Cozaar) 50 mg PO BID 12/18/24 0 12/18/24 History pravastatin 20 mg tablet 20 mg PO QDAY 12/18/2412/18 History Allergies Allergy/AdvReac Type Severity Reaction Status Date / Time No Known Allergies Allergy Verified 12/18/24 06:58 Visit Medications Acetaminophen (Acetaminophen 325 Mg Tablet) 650 mg PO Q6H PRN PRN Reason: Fever >101.5 Stop: 01/17/25 12:55 Acetaminophen (Acetaminophen 325 Mg Tablet) 650 mg PO Q6H PRN PRN Reason: PAIN SCALE 1-3 (mild Stop: 01/17/25 12:55 Aspirin (Aspirin Ec 81 Mg Tabec) 81 mg PO QDAY [facility] Stop: 01/18/25 08:59 Last Admin: 12/22/24 09:27 Dose: 81 mg Cefuroxime Axetil (Cefuroxime Axetil 250 Mg Tablet) 500 mg PO BID [facility] Stop: 12/23/24 22:00 Last Admin: 12/22/24 20:13 Dose: 500 mg Dextrose (Dextrose 50%-Water Inj 50 Ml Syringe) 25 ml IV Q15MIN PRN PRN Reason: BG 50-70 responsive npo pt Stop: 01/17/25 13:12 Dextrose (Dextrose 50%-Water Inj 50 Ml Syringe) 50 ml IV Q15MIN PRN PRN Reason: BG <50 OR BG <70 & pt unresponsive Stop: 01/17/25 13:12 Last Admin: 12/20/24 16:44 Dose: 50 ml Diltiazem HCl (Diltiazem Er 90 Mg Er Capsule) 90 mg PO BID [facility] Stop: 01/18/25 08:59 Last Admin: 12/22/24 20:12 Dose: 90 mg Fluconazole (Fluconazole 100 Mg Tablet) 200 mg PO BID [facility] Stop: 12/31/24 12:00 Last Admin: 12/22/24 20:13 Dose: 200 mg Glucagon (Glucagon Inj 1 Mg Vial) 1 mg IM Q15MIN PRN PRN Reason: BG <70, and no IV access Heparin Sodium/Dextrose (Heparin In D5w Ivpb) 25,000 unit in 250 mls @ 14.696 mls/hr IV .Q17H1M [facility]; Protocol Stop: 01/01/25 16:44 Last Titration: 12/22/24 22:24 Dose: 11 units/kg/hr, 8.981 mls/hr Diltiazem HCl 125 mg/ Dextrose 125 mls @ 5 mls/hr IV .Q24H [facility] Stop: 01/21/25 12:29 Last Admin: 12/22/24 13:34 Dose: 5 mls/hr Insulin Glargine (Insulin Glargine (Lantus) 5 Unit/0.05 Ml (Per 5 Units)) 16 unit SC [facility] Stop: 01/20/25 20:59 Last Admin: 12/22/24 20:14 Dose: 16 unit Insulin Human Lispro (Insulin Lispro (Admelog) 1 Unit/0.01 Ml Unit) 0 unit SC [facility]; Protocol Stop: 01/18/25 16:59 Last Admin: 12/22/24 20:03 Dose: Not Given Insulin Human Lispro (Insulin Lispro (Admelog) 1 Unit/0.01 Ml Unit) 2 unit SC TIDWM [facility] Stop: 01/20/25 07:59 Last Admin: 12/22/24 16:08 Dose: 2 unit Levalbuterol HCl (Levalbuterol Rt 0.63 Mg/3 Ml Nebu) 0.63 mg INH Q6HRRT [facility] Stop: 01/19/25 12:59 Last Admin: 12/22/24 18:12 Dose: 0.63 mg Losartan Potassium (Losartan Potassium 25 Mg Tablet) 50 mg PO BID [facility] Stop: 01/21/25 20:59 Last Admin: 12/22/24 20:13 Dose: 50 mg Melatonin (Melatonin 3 Mg Tablet) 6 mg PO [facility] Stop: 01/17/25 23:29 Last Admin: 12/22/24 20:13 Dose: 6 mg Pravastatin Sodium (Pravastatin Sodium 10 Mg Tablet) 20 mg PO HS [facility] Stop: 01/17/25 20:59 Last Admin: 12/22/24 20:13 Dose: 20 mg Quetiapine Fumarate (Quetiapine Fumarate 25 Mg Tablet) 50 mg PO QDAY PRN PRN Reason: AGITATION (MODERATE) Stop: 01/20/25 08:59 Last Admin: 12/22/24 03:00 Dose: 50 mg Sennosides (Senna Tablet) 1 tab PO QDAY [facility]; Protocol Stop: 01/19/25 09:29 Last Admin: 12/22/24 09:27 Dose: 1 tab Sodium Chloride (Sodium Chloride Rt Zhane 0.9% 3 Ml Nebu) 3 ml INH PRN PRN PRN Reason: SOLN Stop: 01/17/25 07:29 Discontinued Medications Albuterol (Albuterol Rt 2.5 Mg/0.5 Ml Nebu) 10 mg INH X1 ONE Stop: 12/18/24 07:31 Last Admin: 12/18/24 07:53 Dose: 10 mg Albuterol/Ipratropium (Albuterol/Ipratropium (Duoneb) Rt Zhane 3 Ml Nebu) 3 ml INH STAT ONE Stop: 12/21/24 10:57 Last Admin: 12/21/24 11:25 Dose: 3 ml Apixaban (Apixaban 2.5 Mg Tablet) 5 mg PO BID [facility] Stop: 01/17/25 20:59 Bisacodyl (Bisacodyl 10 Mg Supp) 10 mg MD X1 ONE; Protocol Stop: 12/21/24 17:56 Last Admin: 12/21/24 20:45 Dose: 10 mg Olanzapine 5 mg/ Sterile Water (2.1 ml) 0 mg IM QDAY [facility] Stop: 01/18/25 04:52 Last Admin: 12/19/24 05:11 Dose: 5 dose Olanzapine 5 mg/ Sterile Water (2.1 ml) 0 mg IM QDAY [facility] Stop: 01/19/25 00:54 Olanzapine 5 mg/ Sterile Water (2.1 ml) 0 mg IM X1 ONE Stop: 12/20/24 01:05 Last Admin: 12/20/24 01:33 Dose: 1 dose Diltiazem HCl (Diltiazem Er 90 Mg Er Capsule) 90 mg PO QDAY [facility] Stop: 01/18/25 08:59 Diltiazem HCl (Diltiazem Er 90 Mg Er Capsule) 90 mg PO BID [facility] Stop: 01/17/25 20:59 Last Admin: 12/18/24 21:26 Dose: Not Given Diltiazem HCl (Diltiazem Cd 180 Mg Capcr) 180 mg PO BID [facility] Stop: 12/19/24 01:55 Last Admin: 12/18/24 21:44 Dose: 180 mg Diltiazem HCl (Diltiazem Cd 120 Mg Capcr) 120 mg PO BID [facility] Stop: 01/18/25 08:59 Last Admin: 12/19/24 09:55 Dose: 120 mg Furosemide (Furosemide Inj 10 Mg/Ml 4ml Vial) 40 mg IVP X1 ONE Stop: 12/22/24 15:44 Last Admin: 12/22/24 15:54 Dose: 40 mg Heparin Sodium (Porcine) (Heparin Sod Inj 5000 Unit/Ml Vial) 5,000 unit SC Q12HR [facility] Stop: 01/01/25 13:14 Last Admin: 12/18/24 15:48 Dose: Not Given Heparin Sodium (Porcine) (Heparin Sod Inj 5000 Unit/Ml Vial) 6,550 unit 80 unit/kg (6550 unit) IV X1 ONE; Protocol Stop: 12/18/24 15:47 Last Admin: 12/18/24 17:44 Dose: 6,550 unit Heparin Sodium (Porcine) (Heparin Sod Inj 5000 Unit/Ml Vial) 3,200 unit IVP X1 ONE Stop: 12/21/24 17:45 Last Admin: 12/21/24 18:02 Dose: 3,200 unit Heparin Sodium (Porcine) (Heparin Sod Inj 5000 Unit/Ml Vial) 6,500 unit IV X1 ONE Stop: 12/22/24 22:31 Last Admin: 12/22/24 22:24 Dose: 6,500 unit Ceftriaxone Sodium/Dextrose (Rocephin/D5w 1gm Iv Premix) 50 mls @ 100 mls/hr IV X1 ONE Stop: 12/18/24 12:22 Last Infusion: 12/18/24 14:31 Dose: Infused Ceftriaxone Sodium/Dextrose (Rocephin/D5w 1gm Iv Premix) 50 mls @ 100 mls/hr IV QDAY [facility] Stop: 12/26/24 08:59 Last Infusion: 12/22/24 19:40 Dose: Infused Azithromycin 500 mg/ Sodium (Chloride) 250 mls @ 250 mls/hr IV QDAY [facility] Stop: 12/26/24 08:59 Last Infusion: 12/22/24 19:39 Dose: Infused Azithromycin 500 mg/ Sodium (Chloride) 250 mls @ 250 mls/hr IV X1 ONE Stop: 12/18/24 14:14 Last Admin: 12/18/24 15:54 Dose: 250 mls/hr Fluconazole (Diflucan/Ns Ivpb) 400 mg in 200 mls @ 100 mls/hr IV Q24H [facility] Stop: 12/26/24 15:29 Last Admin: 12/19/24 17:49 Dose: 100 mls/hr Fluconazole (Diflucan/Ns Ivpb) 200 mg in 100 mls @ 100 mls/hr IV QDAY [facility] Stop: 12/27/24 08:59 Last Admin: 12/21/24 08:39 Dose: 100 mls/hr Fluconazole (Diflucan/Ns Ivpb) 400 mg in 200 mls @ 100 mls/hr IV QDAY [facility] Stop: 12/28/24 11:21 Fluconazole (Diflucan/Ns Ivpb) 400 mg in 200 mls @ 100 mls/hr IV QDAY [facility] Stop: 12/28/24 11:21 Fluconazole (Diflucan/Ns Ivpb) 200 mg in 100 mls @ 100 mls/hr IV QDAY [facility] Stop: 12/28/24 11:21 Insulin Glargine (Insulin Glargine (Lantus) 5 Unit/0.05 Ml (Per 5 Units)) 10 unit SC HS [facility] Stop: 01/17/25 20:59 Last Admin: 12/18/24 21:47 Dose: 10 unit Insulin Glargine (Insulin Glargine (Lantus) 5 Unit/0.05 Ml (Per 5 Units)) 15 unit SC HS [facility] Stop: 01/18/25 20:59 Last Admin: 12/20/24 20:53 Dose: 15 unit Insulin Human Lispro (Insulin Lispro (Admelog) 1 Unit/0.01 Ml Unit) 3 unit SC TIDWM [facility] Stop: 01/17/25 17:29 Last Admin: 12/20/24 18:02 Dose: Not Given Insulin Human Lispro (Insulin Lispro (Admelog) 1 Unit/0.01 Ml Unit) 0 unit SC AC [facility]; Protocol Stop: 01/17/25 16:59 Last Admin: 12/18/24 18:42 Dose: Not Given Insulin Human Lispro (Insulin Lispro (Admelog) 1 Unit/0.01 Ml Unit) 0 unit SC Q6HR [facility]; Protocol Stop: 01/17/25 17:59 Last Admin: 12/19/24 05:27 Dose: Not Given Ipratropium [place] (Ipratropium Rt 0.5 Mg/ 2.5 Ml Nebu) 1 mg INH X1 ONE Stop: 12/18/24 07:31 Last Admin: 12/18/24 07:54 Dose: 1 mg Levalbuterol HCl (Levalbuterol Rt 0.63 Mg/3 Ml Nebu) 0.63 mg INH Q6HR [facility] Stop: 01/17/25 17:59 Levalbuterol HCl (Levalbuterol Rt 0.63 Mg/3 Ml Nebu) 0.63 mg INH Q8HR [facility] Stop: 01/17/25 21:59 Levalbuterol HCl (Levalbuterol Rt 0.63 Mg/3 Ml Nebu) 0.63 mg INH Q8HRRT [facility] Stop: 01/17/25 14:59 Last Admin: 12/20/24 06:34 Dose: 0.63 mg Losartan Potassium (Losartan Potassium 25 Mg Tablet) 50 mg PO BID [facility] Stop: 01/17/25 20:59 Last Admin: 12/19/24 21:21 Dose: 50 mg Magnesium Hydroxide (Milk Of Magnesia Susp 30 Ml Udc) 30 ml PO QDAY PRN; Protocol PRN Reason: CONSTIPATION Stop: 01/17/25 12:55 Magnesium Hydroxide (Milk Of Magnesia Susp 30 Ml Udc) 30 ml PO X1 ONE; Protocol Stop: 12/20/24 09:20 Last Admin: 12/20/24 11:54 Dose: 30 ml Melatonin (Melatonin 3 Mg Tablet) 6 mg PO HS [facility] Stop: 01/18/25 20:59 Ondansetron HCl (Ondansetron Inj 2 Mg/Ml Inj 2 Ml) 4 mg IV Q6H PRN; Protocol PRN Reason: NAUSEA OR VOMITING Stop: 01/17/25 12:55 Pantoprazole Sodium (Pantoprazole Inj 40 Mg Vial) 40 mg IV QDAY [facility] Stop: 01/17/25 15:59 Last Admin: 12/21/24 08:40 Dose: 40 mg Polyethylene Glycol/Electrolytes (Na [place]/Nahco3/Abe/Peg (Golytely) 4,000 Ml Btl) 4,000 ml PO X1 ONE Stop: 12/22/24 18:26 Last Admin: 12/22/24 20:13 Dose: 4,000 ml Prednisone (Prednisone 20 Mg Tablet) 60 mg PO X1 ONE Stop: 12/18/24 07:31 Last Admin: 12/18/24 07:44 Dose: 60 mg Prednisone (Prednisone 20 Mg Tablet) 40 mg PO QDAY [facility] Stop: 01/18/25 08:59 Last Admin: 12/19/24 09:55 Dose: 40 mg Quetiapine Fumarate (Quetiapine Fumarate 25 Mg Tablet) 25 mg PO X1 ONE Stop: 12/19/24 01:53 Last Admin: 12/19/24 02:16 Dose: 25 mg Quetiapine Fumarate (Quetiapine Fumarate 25 Mg Tablet) 50 mg PO X1 ONE Stop: 12/19/24 03:56 Last Admin: 12/19/24 04:05 Dose: 50 mg Quetiapine Fumarate (Quetiapine Fumarate 25 Mg Tablet) 25 mg PO X1 ONE Stop: 12/19/24 22:17 Last Admin: 12/19/24 22:52 Dose: 25 mg Sodium Chloride (Sodium Chloride Rt 10% 15 Ml Nebu) 5 ml INH X1 ONE Stop: 12/18/24 14:31 Last Admin: 12/19/24 06:50 Dose: Not Given Assessment & Plan Plan Ms. Degroot is a 89-year-old female with past medical history significant for insulin-dependent type 2 diabetes, hyperlipidemia, COPD on home O2, congestive heart failure, A-fib on Eliquis presented to the hospital on 12/18/24 complaining of shortness of breath for 3 days prior to ED arrival.Most recent EKG showed A-fib with RVR therefore cardiology is consulted. #Acute hypoxic respiratory failure #Bilateral pneumonia #Pleural effusions more prominent on the right side #Cocci pneumonia #COPD exacerbation in the setting of -Currently patient is transition to supplemental oxygen on BiPAP, patient does have history of COPD, therefore her symptoms have been exaggerated in the setting of likely cocci pneumonia as patient's cocci IgM is positive. Although patient does not have leukocytosis denies cough fever or chills patient did have pleural effusions for which unsuccessful multiple thoracentesis attempts were made. -Blood cultures have been negative -Patient is on IV antibiotics: Ceftriaxone and azithromycin and patient is given breathing treatments with Leva butyryl #Acute on chronic A-fib #History of A-fib #History of CHF, HFpEF (50-55%) -Patient has a history of CHF and A-fib -EKG on 12/22/2024-A-fib with RVR Echocardiogram on 12/18/2024 findings include: Poor quality images. Normal LV size and wall thickness, Normal LVEF 50-55%. Diastolic dysfunction present but cannot grade to arrhythymia. Septal and lateral wall dysynchrony noted. RV not visulaized well. RV appears normal in size but cannot comment on function. Estimated RVSP, 38 mmHg. RAP 15. Atleast mild PAH Moderate biatrial dilatation. Dilated IVC. Moderate MR. Mild TR. Mild AV sclerosis without stenosis. -Patient's home Eliquis 2.5 twice daily is resumed -Patient was started on Cardizem drip as well as transition to Cardizem 90 mg p.o. twice daily by the primary hospitalist team -Cardiology team recommends Cardizem to 240 Mg daily starting tomorrow -Patient is converted to sinus rhythm therefore at this time cardiology will sign off #Pulmonary embolism -Chest CTA done on 12/18/2024: Findings are consistent with pulmonary artery emboli lower lobe left pulmonary artery branches -Patient is started on heparin drip to be continued #Insulin-dependent type 2 diabetes -Hemoglobin A1c is 7.4 patient's home medications include 25 units of long- acting insulin at bedtime -Patient is started on insulin sliding scale +16 units of long-acting glargine and 2 units of lispro -Hypoglycemia protocol is in place # Primary hypertension #Hyperlipidemia Resume home diltiazem 90 ER and pravastatin 20 Mg as well as aspirin 81 Mg Assessment and plan discussed with my attending physician Dr. Cj Ojeda (PGY-1)- Internal medicine resident Attending Provider Attestation/Addendum I have personally seen and examined the patient separately on the above date of service and discussed the plan of care with the resident. I reviewed the resident Dr. Radha Ojeda consultation progress note and agree with the resident findings and plan in the note above and have also edited the documentation to reflect my findings and plan. 89-year-old female with a past medical history of paroxysmal atrial fibrillation on Eliquis, questionable CHF, type 2 diabetes mellitus, essential hypertension, hyperlipidemia, COPD on home oxygen presented to the emergency department for further evaluation of shortness of breath 3 days prior to the arrival to the ED. Patient was admitted to the hospital and was being treated for acute hypoxic respiratory failure with bilateral pneumonia and pleural effusions, positive for cocci mycosis and COPD exacerbation. Cardiology was consulted for further evaluation of questionable A-fib versus mild on the EKG. Assessment and plan: 1. Paroxysmal atrial fibrillation with RVR and no evidence of any MAT 2. HFpEF 3. Acute hypoxic respiratory failure in the setting of bilateral pneumonia- positive for coccidiomycosis and COPD exacerbation 4. Acute on chronic COPD exacerbation 5. Bilateral pneumonia with pleural effusions 7. Coccidiomycosis 8. Pulmonary embolism involving the left lower pulmonary artery branches. 9. Type 2 diabetes mellitus 10. Essential hypertension 11. Hyperlipidemia 12. Chronic COPD on home oxygen As noted above cardiology was consulted for an abnormal EKG and question of multifocal atrial tachycardia versus atrial fibrillation with RVR. Reviewed the EKG closely in the patient does have atrial fibrillation with RVR Her home dose appears to be Cardizem CD 120 mg twice daily and she is only on 90 mg twice daily of short acting Cardizem. Patient also on Cardizem drip at 5 mg/h. Recommend to increase Cardizem drip to 10 mg/h for now. At the patient's heart rate is well-controlled and less than 100 then patient can be transitioned to Cardizem CD 240 mg once daily. If the heart rate is still high then cardio CD can be increased to 360 mg once daily. Patient chest Vascor is elevated and patient was only on Eliquis 2.5 mg twice daily as outpatient. Patient is on heparin drip for possible PE at present point of time Patient's weight is greater than 60 kg even though age is 89-creatinine is still 1.0 and GFR is close to 50-60 and patient should be on Eliquis 5 mg twice daily for now. Echocardiogram completed 12/18/2024 showed protocol images but LVEF appeared normal at 50 to 55%, estimated RVSP of around 40 mmHg mild PAH, moderate biatrial dilatation, dilated IVC, moderate MR mild TR and mild AV sclerosis without stenosis. SL dysfunction present but could not be graded because of the arrhythmia. Patient does have FFP. Strict input output Daily weights and 2 g within diet. No need of any diuretics at the present point of time can be discharged on low- dose Lasix 20 mg once daily the patient is fluid overloaded. Chest CTA shows pulmonary embolism involving the left lower lobe but evidence of any saddle embolus or major pulmonary embolism. No need of any pulmonary thrombectomy for now. Continue heparin drip and can be transitioned to Eliquis as per the PE protocol. Recommend strict control of the diabetes mellitus as well as hypertension. Management of rest of the medical conditions as per primary team and other consultants. Thank you for the consult and allowing me to participate in the care of the patient. Cardiology will continue to follow. Rasta Corona M.D. Interventional Cardiology
[2024-12-23] VITALS (17 sets, daily range): BP systolic 112–149; BP diastolic 79–109; PULSE 83–148; RESP 17–32; TEMP 36–36.9; O2SAT 90–97; BMI 27.6
[2024-12-23] MEDS: QUEtiapine FUMARATE 25 MG TABLET 50 MG PO (01:26)
[2024-12-23] MEDS: LEVALBUTEROL RT 0.63 MG/3 ML NEBU INH ×5 (01:30→18:00)
[2024-12-23 05:47] LABS: Basophils % (Auto) 0 % (0-2.5); Eosinophils # (Auto) 0.1 Thou/mm3 (0.0-0.5); Eosinophils % (Auto) 1 % (0-10); Hematocrit 36.2 % (36.0-46.0); Hemoglobin 11.6 g/dL (12.0-16.0); Immature Granulocytes % (Auto) 0 % (0-0); Immature Granulocytes Auto 0.02 Thou/mm3 (0.00-0.00); Lymphocytes % (Auto) 13 % (10-50); Mean Corpuscular Hemoglobin 31.4 pg (25.0-35.0); Mean Corpuscular Volume 98 fL (80-100); Monocytes % (Auto) 13 % (0-12); Neutrophils # (Auto) 5.8 Thou/mm3 (1.8-7.7); Neutrophils % (Auto) 73 % (37-80); Nucleated Red Blood Cell % 0 /100 WBC (0); Platelet Count 179 Thou/mm3 (140-440); RDW Standard Deviation 53.3 fL (36.4-46.3)
[2024-12-23 06:15] LABS: Alanine Aminotransferase 14 U/L (10-49); Albumin, Serum 3.7 gm/dL (3.4-4.8); Albumin/Globulin Ratio 1.4 (1.2-2.2); Alkaline Phosphatase 53 U/L (46-116); Anion Gap 6 (7-16); Aspartate Amino Transferase 15 U/L (0-34); BUN/Creatinine Ratio 19 Ratio (12-20); Bilirubin,Total 0.8 mg/dL (0.3-1.2); Blood Urea Nitrogen 19 mg/dL (9-23); Calcium 8.8 mg/dL (8.3-10.6); Carbon Dioxide > 40.0 mMol/L (20.0-31.0); Chloride 96 mMol/L (98-107); Estimated Creatinine Clearance 44.7 mL/min (>60); Globulin 2.7 gm/dL (2.3-3.5); Glucose 171 mg/dL (74-106); Osmolality,Calculated 289 (275-295); Potassium 3.7 mMol/L (3.4-5.1); Sodium 142 mMol/L (136-145); Total Protein 6.4 gm/dL (5.7-8.2); eGFR 55 See Note
[2024-12-23 07:14] LABS: Partial Thromboplastin Time > 120.0 Seconds (22.0-36.0)
[2024-12-23] MEDS: INSULIN LISPRO (AdmeLOG) 1 UNIT/0.01 ML UNIT 2 UNIT SC ×2 (08:21→18:11)
[2024-12-23] MEDS: INSULIN LISPRO (AdmeLOG) 1 UNIT/0.01 ML UNIT SC (08:25)
[2024-12-23] MEDS: SENNA TABLET 1 TAB PO (09:24)
[2024-12-23] MEDS: LOSARTAN POTASSIUM 25 MG TABLET 50 MG PO ×2 (09:24→21:25)
[2024-12-23] MEDS: ASPIRIN EC 81 MG TABEC PO (09:24)
[2024-12-23] MEDS: DILTIAZEM CD 120 MG CAPCR 240 MG PO (09:25)
[2024-12-23] MEDS: FLUCONAZOLE 100 MG TABLET 200 MG PO ×2 (09:26→21:26)
[2024-12-23] MEDS: cefuroxime axetiL 250 MG TABLET 500 MG PO ×2 (09:26→21:27)
--- NOTE | 2024-12-23 09:37 | XR_ITS ---
Examination: AP chest single view Technique one AP portable upright chest single view Exam date and time: December 23, 2024 0942 hrs. Comparison December 22, 2024 Findings: Significant bibasilar opacity consistent with pneumonia Moderate to large bilateral pleural effusions Prominent vascular congestion Severe osteopenia Impression: Prominent bibasilar pneumonia Suspicious for mild associated heart failure
[2024-12-23 09:47] LABS: Base Excess 20 (-3-3); HCO3 47 mEq/L (20-26); Inspired Oxygen, FIO2 100 %; O2 Saturation 80 % (91-98); PCO2 66 mmHg (32.0-48.0); pH, Arterial 7.46 (7.35-7.45)
[2024-12-23 09:49] LABS: Allen Test Performed/OK; Puncture Site Right Radial
[2024-12-23 09:51] LABS: PO2 45 mmHg (83-108)
[2024-12-23] MEDS: DILTIAZEM INJ 125 MG in DEXTROSE 5%-WATER 100 ML IV (11:54)
--- NOTE | 2024-12-23 12:19 | PC.NURSE ---
blood sugar 117-- held insulin unable to eat
[2024-12-23 13:20] LABS: Partial Thromboplastin Time 43.1 Seconds (22.0-36.0)
[2024-12-23] MEDS: HEPARIN SOD INJ 5000 UNIT/ML VIAL 3300 UNIT IVP (14:37)
--- NOTE | 2024-12-23 15:50 | PD.RESEVENT ---
Documentation for date of: 12/23/24 Event Note Event Note: Rapid response was called in the morning for worsening oxygenation, while patient was on BiPAP. On-call internal medicine team responded to rapid response. Patient was evaluated at bedside following rapid response protocol, we went over the ABCDE approach. We ordered chest x-ray, ABG. Chest x-ray showed improvement of findings compared to most recent chest x-ray, but positive for prominent bibasilar pneumonia and mild heart failure. ABG showed severe hypoxemia with pH of 7.46, pCO2 of 66 and bicarb of 47. BiPAP settings were adjusted. The family was at bedside. We had opportunity to discuss goals of further care with the family, particularly with Mr. Nba Swanson, who is the son and decision maker for the patient. We explained patient's condition and prognosis. Asked for CODE STATUS if patient condition declines. We explained risks and benefits of full code versus DNR/DNI. All the answers were addressed. After understanding all possible options for further care, family decided to change the patient's CODE STATUS from full code to DNR/DNI. Stan Houser MD PGY3 reviewed and discussed the case with attending physician Dr. Norwood
--- NOTE | 2024-12-23 16:28 | PC.NURSE ---
0934- patient o2sats 65 %,on bipap 100 %, rapid response was called at this time.
[2024-12-23] MEDS: Heparin/D5w 25K 250 ML Ivpb 25,000 UNIT/250 ML BAG 8.165 UNIT IV (18:27)
--- NOTE | 2024-12-23 18:31 | PD.RESPRO ---
Documentation for date of: 12/23/24 Subjective Subjective Interval history: Patient was started on BiPAP again last night. Rapid response was called for hypoxia, vent settings were adjusted. Goals of care were discussed in detail with family members, family decided on DNR/DNI. Currently patient on high setting of BiPAP. Family members aware of the forthcoming outcome, they haven't decided on comfort care yet. If patient to deteriorate further, family will be contacted regarding their decision. Exam Vital Signs Temp Pulse Resp BP Pulse Ox O2 Del Method O2 Flow Rate 97.0 F 118 H 28 H 141/109 H 92 L BiPAP 6 12/23/24 12:00 12/23/24 16:00 12/23/24 14:43 12/23/24 12:00 12/23/24 14:43 12/23/24 12:00 12/23/24 12:00 FiO2 100 12/23/24 14:43 Narrative Exam Physical Exam: GENERAL: Awake, restless in respiratory distress, appears stated age HEENT: NC/AT. Moist mucosa. PERRLA/EOMI. CARDIO: Heart RRR, no obvious murmurs, no JVD. PULM: No coughing but appears SOB with Oxy Mask. Lungs have reduced breath sounds at bases but otherwise CTA B/L GI: Abdomen soft but distended, NT, +BS. SKIN/MSK/EXT: No wounds/discoloration/rashes/edema/amputations. +Pedal pulses present B/L. NEURO: Oriented x3, Moves extremities x4 and no focal neurological deficits. Objective Labs 12/25/24 05:05 12/25/24 05:05 Labs: Laboratory Results - last 24 hr 12/22/24 12/23/24 12/23/24 20:56 04:28 09:45 WBC 8.0 RBC 3.70 L Hgb 11.6 L Hct 36.2 MCV 98 MCH 31.4 MCHC 32.0 RDW Std Deviation 53.3 H Plt Count 179 Neut % (Auto) 73 Lymph % (Auto) 13 [place] % (Auto) 13 H Eos % (Auto) 1 Baso % (Auto) 0 Neut # (Auto) 5.8 Lymph # (Auto) 1.0 [place] # (Auto) 1.0 H Eos # (Auto) 0.1 Baso # (Auto) 0.0 Immature Gran # (Auto) 0.02 H Absolute Nucleated RBC 0.00 Immature Gran % 0 Nucleated RBC % 0 APTT 32.8 > 120.0 H* D Puncture Site Right Radial ABG pH 7.46 H ABG pCO2 66 H ABG pO2 45 L* ABG HCO3 47 H ABG O2 Saturation 80 L ABG Base Excess 20 H FiO2 100 Sodium 142 Potassium 3.7 Chloride 96 L Carbon Dioxide > 40.0 H Anion Gap 6 L BUN 19 Creatinine 1.0 Estim Creat Clear Calc 44.7 L eGFR 55 L BUN/Creatinine Ratio 19 Glucose 171 H Calculated Osmolality 289 Calcium 8.8 Corrected Calcium 9.0 Total Bilirubin 0.8 AST 15 ALT 14 Alkaline Phosphatase 53 Total Protein 6.4 Albumin 3.7 Globulin 2.7 Albumin/Globulin Ratio 1.4 12/23/24 12:57 WBC RBC Hgb Hct MCV MCH MCHC RDW Std Deviation Plt Count Neut % (Auto) Lymph % (Auto) [place] % (Auto) Eos % (Auto) Baso % (Auto) Neut # (Auto) Lymph # (Auto) [place] # (Auto) Eos # (Auto) Baso # (Auto) Immature Gran # (Auto) Absolute Nucleated RBC Immature Gran % Nucleated RBC % APTT 43.1 H D Puncture Site ABG pH ABG pCO2 ABG pO2 ABG HCO3 ABG O2 Saturation ABG Base Excess FiO2 Sodium Potassium Chloride Carbon Dioxide Anion Gap BUN Creatinine Estim Creat Clear Calc eGFR BUN/Creatinine Ratio Glucose Calculated Osmolality Calcium Corrected Calcium Total Bilirubin AST ALT Alkaline Phosphatase Total Protein Albumin Globulin Albumin/Globulin Ratio ABG Interpretation ABG results: 12/18/24 12/18/24 12/19/24 14:07 19:24 08:30 ABG pH 7.41 7.38 ABG pCO2 62 H 62 H ABG pO2 52 L* 76 L D ABG HCO3 39 H 37 H ABG O2 Saturation 86 L 95 ABG Base Excess 12 H 9 H VBG pH 7.38 VBG pCO2 71 H VBG pO2 34 VBG Base Excess 13 H 12/19/24 12/21/24 12/21/24 11:08 11:50 17:01 ABG pH 7.30 L 7.32 L ABG pCO2 83 H* D 83 H* ABG pO2 80 L 69 L ABG HCO3 41 H 42 H ABG O2 Saturation 96 93 ABG Base Excess 12 H 13 H VBG pH 7.52 VBG pCO2 45 D VBG pO2 64 H D VBG Base Excess 13 H 12/22/24 12/23/24 07:15 09:45 ABG pH 7.42 D 7.46 H ABG pCO2 63 H D 66 H ABG pO2 63 L 45 L* ABG HCO3 41 H 47 H ABG O2 Saturation 93 80 L ABG Base Excess 14 H 20 H VBG pH VBG pCO2 VBG pO2 VBG Base Excess Quality Measures Quality Measures none Advance care planning discussed with:: child Assessment & Plan Assessment Current Active Medications: Generic Name Dose Route Start Last Admin Trade Name Freq PRN Reason Stop Dose Admin Acetaminophen 650 mg 12/18/24 12:56 Acetaminophen 325 Mg Tablet PO 01/17/25 12:55 Q6H PRN Fever >101.5 Acetaminophen 650 mg 12/18/24 12:56 Acetaminophen 325 Mg Tablet PO 01/17/25 12:55 Q6H PRN PAIN SCALE 1-3 (mild Aspirin 81 mg 12/19/24 09:00 12/23/24 09:24 Aspirin Ec 81 Mg Tabec PO 01/18/25 08:59 81 mg QDAY SARA Administration Cefuroxime Axetil 500 mg 12/22/24 09:00 12/23/24 09:26 Cefuroxime Axetil 250 Mg Tablet PO 12/23/24 22:00 500 mg BID SARA Administration Dextrose 25 ml 12/18/24 13:13 Dextrose 50%-Water Inj 50 Ml Syringe IV 01/17/25 13:12 Q15MIN PRN BG 50-70 responsive npo pt Dextrose 50 ml 12/18/24 13:13 12/20/24 16:44 Dextrose 50%-Water Inj 50 Ml Syringe IV 01/17/25 13:12 50 ml Q15MIN PRN Administration BG <50 OR BG <70 & pt unresponsive Diltiazem HCl 240 mg 12/23/24 09:00 12/23/24 09:25 Diltiazem Cd 120 Mg Capcr PO 01/22/25 08:59 240 mg QDAY SARA Administration Fluconazole 200 mg 12/22/24 09:00 12/23/24 09:26 Fluconazole 100 Mg Tablet PO 12/31/24 12:00 200 mg BID SARA Administration Glucagon 1 mg 12/18/24 13:13 Glucagon Inj 1 Mg Vial IM Q15MIN PRN BG <70, and no IV access Heparin Sodium/Dextrose 25,000 unit in 250 mls @ 14.696 mls/hr 12/18/24 16:45 12/23/24 18:27 Heparin In D5w Ivpb IV 01/01/25 16:44 10 units/kg/hr .Q17H1M SARA 8.165 mls/hr Administration Protocol 18 UNITS/KG/HR Diltiazem HCl 125 mg/ Dextrose 125 mls @ 5 mls/hr 12/22/24 12:30 12/23/24 11:54 IV 01/21/25 12:29 5 mls/hr .Q24H SARA Administration Insulin Glargine 16 unit 12/21/24 21:00 12/22/24 20:14 Insulin Glargine (Lantus) 5 Unit/0.05 Ml (Per 5 Units) SC 01/20/25 20:59 16 unit HS SARA Administration Insulin Human Lispro 0 unit 12/19/24 17:00 12/23/24 18:07 Insulin Lispro (Admelog) 1 Unit/0.01 Ml Unit SC 01/18/25 16:59 Not Given ACHS [facility] Protocol Insulin Human Lispro 2 unit 12/21/24 08:00 12/23/24 18:11 Insulin Lispro (Admelog) 1 Unit/0.01 Ml Unit SC 01/20/25 07:59 2 unit TIDWM SARA Administration Levalbuterol HCl 0.63 mg 12/20/24 13:00 12/23/24 13:03 Levalbuterol Rt 0.63 Mg/3 Ml Nebu INH 01/19/25 12:59 0.63 mg Q6HRRT SARA Administration Losartan Potassium 50 mg 12/22/24 21:00 12/23/24 09:24 Losartan Potassium 25 Mg Tablet PO 01/21/25 20:59 50 mg BID SARA Administration Melatonin 6 mg 12/18/24 23:30 12/22/24 20:13 Melatonin 3 Mg Tablet PO 01/17/25 23:29 6 mg HS SARA Administration Pravastatin Sodium 20 mg 12/18/24 21:00 12/22/24 20:13 Pravastatin Sodium 10 Mg Tablet PO 01/17/25 20:59 20 mg HS SARA Administration Quetiapine Fumarate 50 mg 12/20/24 16:56 12/23/24 01:26 Quetiapine Fumarate 25 Mg Tablet PO 01/20/25 08:59 50 mg QDAY PRN Administration AGITATION (MODERATE) Sennosides 1 tab 12/20/24 09:30 12/23/24 09:24 Senna Tablet PO 01/19/25 09:29 1 tab QDAY SARA Administration Protocol Sodium Chloride 3 ml 12/18/24 07:30 Sodium Chloride Rt Zhane 0.9% 3 Ml Nebu INH 01/17/25 07:29 PRN PRN SOLN Plan 89-year-old female with past medical history of congestive heart failure, atrial fibrillation on Eliquis, COPD, type 2 diabetes, hyperlipidemia presenting to the ED for dizziness and shortness of breath which has been ongoing for the past 3 days will be admitted for treatment of pulmonary embolism along with thoracentesis for pleural effusions and IV antibiotics for possible superimposed pneumonia. #Acute Hypoxic Respiratory Failure 2/2 Pleural effusion, RT #Bilateral pneumonia #Cocci Pneumonia #History of COPD #History of CHF #Respiratory acidosis COVID-negative As stated above patient has the following findings on imaging 12/19/2024: Patient started on BiPAP for CO2 retention but upon rechecking VBG will discontinue as pH is now alkalotic Last VBG: pH 7.52, pCO2 45, pO2 64 U/S Thoracentesis deferred as patient PTT was too elevated; will reassess for need Blood cultures NG within 24 hours ECHO shows Poor quality images. Normal LV size and wall thickness, Normal LVEF 50-55%. Diastolic dysfunction present but cannot grade to arrhythymia. Septal and lateral wall dysynchrony noted. RV not visulaized well. RV appears normal in size but cannot comment on function. Estimated RVSP, 38 mmHg. RAP 15. Atleast mild PAH. Moderate biatrial dilatation. Dilated IVC. Moderate MR. Mild TR. Mild AV sclerosis without stenosis. Bedside influenza A/B sent, urine Legionella; RSV negative, Cocci IgM positive Last ABG showed pH 7.30, pCO2 83, pO2 80 and HCO3 of 41 U/S guided thoracentesis cancelled, patient's family would not like invasive therapies Plan: Patient currently on Oxy Mask Renally dosed IV Diflucan; ID - Dr. Mackenzie consulted Dr. Mackenzie started patient on Cefuroxime Levalbuterol every 6 hour breathing treatments Daily weights Strict I/Os 1800 fluid restriction #Atrial tachycardia #Likely Multifocal tachycardia vs. Afib Patient has sustained tachycardia EKG reads as atrial fibrillation, but there are clear P-waves seen Cardiology, Dr. Corona, consulted - appreciate recommendations Plan: Patient on Diltiazem 90mg ER po BID Started the patient on Dilt gtt 5mls/hr #Pulmonary Embolism #Sinus tachycardia likely 2/2 to PE, Pleural effusion and likely PNA Patient presented to the ED with shortness of breath and dizziness which has been ongoing for about 3 days; patient's family denies that she has had fever/chills or any sick contacts In the ED, patient was severely hypoxic requiring supplemental oxygenation with nasal cannula Well's Score of 9.0?points High risk group: 40.6% chance of PE in an ED population. Another study assigned scores > 4 as ?PE Likely? and had a 28% incidence of PE. On chest x-ray there are signs of mild heart failure along with superimposed bilateral pneumonia at the bases Bedside echo evaluation showed good ejection fraction but dilated right atrium along with dilated IVC open (roughly 2 cm without changes with inspiration) EKG showed sinus tachycardia without any concerning ST changes and troponin within normal limits BNP mildly elevated around 300 CT of the chest confirmed pulmonary artery emboli in the lower lobe left lobe with atelectasis and mild to moderate bilateral pleural effusions Plan: Continue heparin drip #RADHA, improving #Hyperkalemia Likely 2/2 to Losartan which was home dose Patient's Cr uptrended since admission from 0.9 to 1.2 - now downtrending Potassium of 5.3 --> 4.1 Plan: Restarting Losartan Renally dose medications Avoid nephrotoxic agents #Ileus On exam patient had distended abdomen with hypoactive bowel sounds Patient has no BM recorded Plan: Continue bowel regimen Added GoLytely #Insulin-dependent type 2 diabetes A1c of 7.5 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 as noted in HPI (renal disease?) GFR and Cr are stable Plan: Continue long-acting 16 units glargine Continue 2 units lispro SSI #History of atrial fibrillation #Hyperlipidemia #Hypertension Chronic medical history Plan: Continue diltiazem 90 ER (SR not in formulary) Continue pravastatin 20 mg, aspirin 81 mg Hospital Management: Lines: PIV Diet: Carb consistent low , 1800ml fluid restriction Bowel: Zofran GI prophylaxis: Protonix DVT prophylaxis: On heparin drip Dispo: Treatment for pulmonary embolism, ECHO and thoracentesis for pleural effusion. On IV abx Code: DNR/DNI This patient care was discussed with my attending Dr. Cuco Li MD PGY-2 Disclaimer: Minor errors in help desk supervisor may be present since this note was dictated by speech recognition software. Attending Provider Attestation/Addendum 89-year-old female with multiple comorbidities including hypertension, hyperlipidemia, type 2 diabetes mellitus, atrial fibrillation on Eliquis and heart failure with preserved EF who came into the ED with shortness of breath found to have bilateral multifocal pneumonia, coccidiomycosis pneumonia, CHF exacerbation and pulmonary embolus. During course of hospitalization, patient started on high flow nasal cannula however continued to have worsening hypoxia and subsequently ICU was consulted. ICU team continues to follow the patient and plan to continue Rocephin, azithromycin, Diflucan, heparin drip in addition to Lasix. Patient continues to be on BiPAP and appreciate intensive care input.I reviewed above note and agree with findings and plans. Overnight, patient continued to have bilateral pleural effusion and plan was to obtain a thoracentesis however family refused. Will respect their wishes. Continue BiPAP therapy and monitor closely as there is a risk for worsening respiratory compromise and possible risk of intubation. Furthermore, discussed goals of care with family and wanted patient to be DNR/DNI. Updated them that we will continue BiPAP and if she was to worsen then we will be addressing comfort focused therapy. They are in agreement with our plan and they verbalized understanding and appreciation for the medical team. Continue to monitor closely. Poor prognosis overall I have also personally examined the patient with medicine team and went over assessment and plan with medical team including management retail intern and resident physician.
[2024-12-23 21:23] LABS: Partial Thromboplastin Time 49.5 Seconds (22.0-36.0)
[2024-12-23] MEDS: MELATONIN 3 MG TABLET 6 MG PO (21:26)
[2024-12-23] MEDS: PRAVASTATIN SODIUM 10 MG TABLET 20 MG PO (21:27)
[2024-12-23] MEDS: INSULIN GLARGINE (Lantus) 5 UNIT/0.05 ML (PER 5 UNITS) 16 UNIT SC (21:36)
--- NOTE | 2024-12-23 21:59 | PC.NURSE ---
RN administered PO meds to patient, but patient spit them out. Patient did not want to take remaining meds (cefuroxime and pravastatin). Patient however did take 1 out of the 2 cerfuroxime and 1 out of the 2 pravastatin. 1 cefuroxime and 1 pravastatin was wasted and witnessed by FAVIO Murdock.
[2024-12-23 22:58] LABS: Hepatitis C Antibody Non Reactive (Non React)
[2024-12-23] MEDS: HEPARIN SOD INJ 5000 UNIT/ML VIAL 3500 UNIT IV (23:06)
[2024-12-24] VITALS (19 sets, daily range): BP systolic 128–160; BP diastolic 82–101; PULSE 92–118; RESP 18–28; TEMP 35.9–36.8; O2SAT 90–100; BMI 27.6
[2024-12-24] MEDS: LEVALBUTEROL RT 0.63 MG/3 ML NEBU INH ×4 (00:15→19:51)
--- NOTE | 2024-12-24 00:50 | PC.NURSE ---
RN called Dr. Virk if patient should still be on low intermittent suction due to having air in the stomach. Dr. Virk stated to just leave it on low intermittent suction for now.
[2024-12-24 06:04] LABS: Basophils % (Auto) 0 % (0-2.5); Eosinophils % (Auto) 0 % (0-10); Hematocrit 35.3 % (36.0-46.0); Hemoglobin 11.5 g/dL (12.0-16.0); Immature Granulocytes % (Auto) 0 % (0-0); Immature Granulocytes Auto 0.03 Thou/mm3 (0.00-0.00); Lymphocytes # (Auto) 0.7 Thou/mm3 (1.0-4.8); Lymphocytes % (Auto) 9 % (10-50); Mean Corpuscular HGB Conc 32.6 g/dl (31.0-37.0); Mean Corpuscular Hemoglobin 31.9 pg (25.0-35.0); Mean Corpuscular Volume 98 fL (80-100); Monocytes # (Auto) 1.2 Thou/mm3 (0.0-0.8); Monocytes % (Auto) 14 % (0-12); Neutrophils # (Auto) 6.4 Thou/mm3 (1.8-7.7); Neutrophils % (Auto) 77 % (37-80); Nucleated Red Blood Cell % 0 /100 WBC (0); Platelet Count 164 Thou/mm3 (140-440); RDW Standard Deviation 53.6 fL (36.4-46.3); Red Blood Count 3.61 Miln/mm3 (4.00-5.20); White Blood Count 8.4 Thou/mm3 (3.6-11.0)
[2024-12-24 06:57] LABS: Partial Thromboplastin Time 59.5 Seconds (22.0-36.0)
--- NOTE | 2024-12-24 07:32 | XR_ITS ---
Examination: Abdomen AP single view Technique: AP portable supine abdomen, single view Exam date and time: December 24, 2024 0806 hours INDICATIONS: Abdominal pain and constipation beginning 4 days ago. FINDINGS: Mild small bowel ileus No obstruction No free air Bibasilar pneumonia with probable heart failure IMPRESSION: Small bowel ileus No obstruction No free air
[2024-12-24 07:45] LABS: Alanine Aminotransferase 23 U/L (10-49); Albumin, Serum 3.7 gm/dL (3.4-4.8); Albumin/Globulin Ratio 1.4 (1.2-2.2); Alkaline Phosphatase 52 U/L (46-116); Anion Gap 8 (7-16); Aspartate Amino Transferase 34 U/L (0-34); BUN/Creatinine Ratio 23 Ratio (12-20); Bilirubin,Total 0.8 mg/dL (0.3-1.2); Blood Urea Nitrogen 18 mg/dL (9-23); Calcium (Corrected) 9.2 mg/dL (8.5-10.1); Carbon Dioxide 39.9 mMol/L (20.0-31.0); Chloride 98 mMol/L (98-107); Creatinine (Component) 0.8 mg/dL (0.6-1.3); Estimated Creatinine Clearance 55.8 mL/min (>60); Globulin 2.7 gm/dL (2.3-3.5); Glucose 122 mg/dL (74-106); Osmolality,Calculated 293 (275-295); Potassium 3.7 mMol/L (3.4-5.1); Sodium 146 mMol/L (136-145); Total Protein 6.4 gm/dL (5.7-8.2); eGFR > 60 See Note
[2024-12-24] MEDS: DILTIAZEM CD 120 MG CAPCR 240 MG PO (09:30)
[2024-12-24] MEDS: LOSARTAN POTASSIUM 25 MG TABLET 50 MG PO ×2 (09:31→21:49)
[2024-12-24] MEDS: FLUCONAZOLE 100 MG TABLET 200 MG PO (09:31)
[2024-12-24] MEDS: SENNA TABLET 1 TAB PO (09:31)
[2024-12-24] MEDS: ASPIRIN 81 MG CHEW PO (09:33)
[2024-12-24] MEDS: ASPIRIN EC 81 MG TABEC PO (09:33)
--- NOTE | 2024-12-24 09:35 | PD.IDPROG ---
Subjective Subjective Interval history: pos cocci noted. Exam Vital Signs Temp Pulse Resp BP Pulse Ox O2 Del Method O2 Flow Rate 96.7 F L 98 25 H 142/82 H 98 BiPAP 6 12/24/24 08:00 12/24/24 09:31 12/24/24 08:00 12/24/24 09:31 12/24/24 08:00 12/24/24 08:00 12/23/24 20:00 FiO2 100 12/24/24 07:39 Narrative Exam see dictation. Objective - Internal Medicine Labs 12/25/24 05:05 12/25/24 05:05 Labs: Laboratory Results - last 24 hr 12/22/24 12/23/24 12/23/24 09:44 09:45 12:57 WBC RBC Hgb Hct MCV MCH MCHC RDW Std Deviation Plt Count Neut % (Auto) Lymph % (Auto) [place] % (Auto) Eos % (Auto) Baso % (Auto) Neut # (Auto) Lymph # (Auto) [place] # (Auto) Eos # (Auto) Baso # (Auto) Immature Gran # (Auto) Absolute Nucleated RBC Immature Gran % Nucleated RBC % APTT 43.1 H D Puncture Site Right Radial ABG pH 7.46 H ABG pCO2 66 H ABG pO2 45 L* ABG HCO3 47 H ABG O2 Saturation 80 L ABG Base Excess 20 H FiO2 100 Sodium Potassium Chloride Carbon Dioxide Anion Gap BUN Creatinine Estim Creat Clear Calc eGFR BUN/Creatinine Ratio Glucose Calculated Osmolality Calcium Corrected Calcium Total Bilirubin AST ALT Alkaline Phosphatase Total Protein Albumin Globulin Albumin/Globulin Ratio Hepatitis C Antibody Non Reactive 12/23/24 12/24/24 20:35 05:38 WBC 8.4 RBC 3.61 L Hgb 11.5 L Hct 35.3 L MCV 98 MCH 31.9 MCHC 32.6 RDW Std Deviation 53.6 H Plt Count 164 Neut % (Auto) 77 Lymph % (Auto) 9 L [place] % (Auto) 14 H Eos % (Auto) 0 Baso % (Auto) 0 Neut # (Auto) 6.4 Lymph # (Auto) 0.7 L [place] # (Auto) 1.2 H Eos # (Auto) 0.0 Baso # (Auto) 0.0 Immature Gran # (Auto) 0.03 H Absolute Nucleated RBC 0.00 Immature Gran % 0 Nucleated RBC % 0 APTT 49.5 H 59.5 H D Puncture Site ABG pH ABG pCO2 ABG pO2 ABG HCO3 ABG O2 Saturation ABG Base Excess FiO2 Sodium 146 H Potassium 3.7 Chloride 98 Carbon Dioxide 39.9 H Anion Gap 8 BUN 18 Creatinine 0.8 Estim Creat Clear Calc 55.8 L eGFR > 60 BUN/Creatinine Ratio 23 H Glucose 122 H Calculated Osmolality 293 Calcium 9.0 Corrected Calcium 9.2 Total Bilirubin 0.8 AST 34 ALT 23 Alkaline Phosphatase 52 Total Protein 6.4 Albumin 3.7 Globulin 2.7 Albumin/Globulin Ratio 1.4 Hepatitis C Antibody ABG Interpretation ABG results: 12/18/24 12/18/24 12/19/24 14:07 19:24 08:30 ABG pH 7.41 7.38 ABG pCO2 62 H 62 H ABG pO2 52 L* 76 L D ABG HCO3 39 H 37 H ABG O2 Saturation 86 L 95 ABG Base Excess 12 H 9 H VBG pH 7.38 VBG pCO2 71 H VBG pO2 34 VBG Base Excess 13 H 12/19/24 12/21/24 12/21/24 11:08 11:50 17:01 ABG pH 7.30 L 7.32 L ABG pCO2 83 H* D 83 H* ABG pO2 80 L 69 L ABG HCO3 41 H 42 H ABG O2 Saturation 96 93 ABG Base Excess 12 H 13 H VBG pH 7.52 VBG pCO2 45 D VBG pO2 64 H D VBG Base Excess 13 H 12/22/24 12/23/24 07:15 09:45 ABG pH 7.42 D 7.46 H ABG pCO2 63 H D 66 H ABG pO2 63 L 45 L* ABG HCO3 41 H 47 H ABG O2 Saturation 93 80 L ABG Base Excess 14 H 20 H VBG pH VBG pCO2 VBG pO2 VBG Base Excess Assessment & Plan A&P Narrative 89 y/o with effusion and possible pneumonia with a neg procal 2/. had 3d of azithro 500 already. so time to stop that. cocci pos IgM so far. test CF and repeat ID pending at [facility] changed to all po regimen over weekend. home at your discretion. I will see Tuesday if she remains in house. ok to stop flucon if cocci neg at [facility] but that is likely to be later this week. repeat cxr in 4-6 weeks. later if cocci positive. ok to add bnp to eval given echo findings that are equivocal for chf. Time Spent With Patient Time: Total time spent is greater than 50% in coordination of care (as documented) at patient's floor/unit and/or counseling patient:
--- NOTE | 2024-12-24 09:59 | XR_ITS ---
Examination: AP chest single view TECHNIQUE: AP portable semiupright chest single view Exam date and time: December 24, 2024 1029 hours Comparison December 23, 2024 INDICATIONS: Shortness of breath beginning 2 days ago. FINDINGS: Mild chronic heart failure Moderate enlargement cardiac contour Edema and/or pneumonia at the lung bases with pleural fluid Prominent osteopenia IMPRESSION: Mild chronic heart failure Edema and/or pneumonia at the lung bases
--- NOTE | 2024-12-24 10:37 | PC.SS ---
Update: Patient is DNR/DNI. Patient has failed BI-PAP.
--- NOTE | 2024-12-24 10:39 | PD.RESPRO ---
Documentation for date of: 12/24/24 Exam Vital Signs Temp Pulse Resp BP Pulse Ox O2 Del Method O2 Flow Rate 96.7 F L 98 25 H 142/82 H 98 BiPAP 6 12/24/24 08:00 12/24/24 09:31 12/24/24 08:00 12/24/24 09:31 12/24/24 08:00 12/24/24 08:00 12/23/24 20:00 FiO2 100 12/24/24 07:39 Objective Labs 12/24/24 05:38 12/24/24 05:38 Labs: Laboratory Results - last 24 hr 12/22/24 12/23/24 12/23/24 09:44 12:57 20:35 WBC RBC Hgb Hct MCV MCH MCHC RDW Std Deviation Plt Count Neut % (Auto) Lymph % (Auto) [place] % (Auto) Eos % (Auto) Baso % (Auto) Neut # (Auto) Lymph # (Auto) [place] # (Auto) Eos # (Auto) Baso # (Auto) Immature Gran # (Auto) Absolute Nucleated RBC Immature Gran % Nucleated RBC % APTT 43.1 H D 49.5 H Sodium Potassium Chloride Carbon Dioxide Anion Gap BUN Creatinine Estim Creat Clear Calc eGFR BUN/Creatinine Ratio Glucose Calculated Osmolality Calcium Corrected Calcium Total Bilirubin AST ALT Alkaline Phosphatase Total Protein Albumin Globulin Albumin/Globulin Ratio Hepatitis C Antibody Non Reactive 12/24/24 05:38 WBC 8.4 RBC 3.61 L Hgb 11.5 L Hct 35.3 L MCV 98 MCH 31.9 MCHC 32.6 RDW Std Deviation 53.6 H Plt Count 164 Neut % (Auto) 77 Lymph % (Auto) 9 L Rogers % (Auto) 14 H Eos % (Auto) 0 Baso % (Auto) 0 Neut # (Auto) 6.4 Lymph # (Auto) 0.7 L Rogers # (Auto) 1.2 H Eos # (Auto) 0.0 Baso # (Auto) 0.0 Immature Gran # (Auto) 0.03 H Absolute Nucleated RBC 0.00 Immature Gran % 0 Nucleated RBC % 0 APTT 59.5 H D Sodium 146 H Potassium 3.7 Chloride 98 Carbon Dioxide 39.9 H Anion Gap 8 BUN 18 Creatinine 0.8 Estim Creat Clear Calc 55.8 L eGFR > 60 BUN/Creatinine Ratio 23 H Glucose 122 H Calculated Osmolality 293 Calcium 9.0 Corrected Calcium 9.2 Total Bilirubin 0.8 AST 34 ALT 23 Alkaline Phosphatase 52 Total Protein 6.4 Albumin 3.7 Globulin 2.7 Albumin/Globulin Ratio 1.4 Hepatitis C Antibody ABG Interpretation ABG results: 12/18/24 12/18/24 12/19/24 14:07 19:24 08:30 ABG pH 7.41 7.38 ABG pCO2 62 H 62 H ABG pO2 52 L* 76 L D ABG HCO3 39 H 37 H ABG O2 Saturation 86 L 95 ABG Base Excess 12 H 9 H VBG pH 7.38 VBG pCO2 71 H VBG pO2 34 VBG Base Excess 13 H 12/19/24 12/21/24 12/21/24 11:08 11:50 17:01 ABG pH 7.30 L 7.32 L ABG pCO2 83 H* D 83 H* ABG pO2 80 L 69 L ABG HCO3 41 H 42 H ABG O2 Saturation 96 93 ABG Base Excess 12 H 13 H VBG pH 7.52 VBG pCO2 45 D VBG pO2 64 H D VBG Base Excess 13 H 12/22/24 12/23/24 07:15 09:45 ABG pH 7.42 D 7.46 H ABG pCO2 63 H D 66 H ABG pO2 63 L 45 L* ABG HCO3 41 H 47 H ABG O2 Saturation 93 80 L ABG Base Excess 14 H 20 H VBG pH VBG pCO2 VBG pO2 VBG Base Excess Quality Measures Quality Measures none Assessment & Plan Assessment Current Active Medications: Generic Name Dose Route Start Last Admin Trade Name Freq PRN Reason Stop Dose Admin Acetaminophen 650 mg 12/18/24 12:56 Acetaminophen 325 Mg Tablet PO 01/17/25 12:55 Q6H PRN Fever >101.5 Acetaminophen 650 mg 12/18/24 12:56 Acetaminophen 325 Mg Tablet PO 01/17/25 12:55 Q6H PRN PAIN SCALE 1-3 (mild Aspirin 81 mg 12/24/24 09:30 12/24/24 09:33 Aspirin 81 Mg Chew PO 01/18/25 08:59 81 mg QDAY SARA Administration Dextrose 25 ml 12/18/24 13:13 Dextrose 50%-Water Inj 50 Ml Syringe IV 01/17/25 13:12 Q15MIN PRN BG 50-70 responsive npo pt Dextrose 50 ml 12/18/24 13:13 12/20/24 16:44 Dextrose 50%-Water Inj 50 Ml Syringe IV 01/17/25 13:12 50 ml Q15MIN PRN Administration BG <50 OR BG <70 & pt unresponsive Diltiazem HCl 240 mg 12/23/24 09:00 12/24/24 09:30 Diltiazem Cd 120 Mg Capcr PO 01/22/25 08:59 240 mg QDAY SARA Administration Fluconazole 400 mg 12/24/24 09:45 Fluconazole 100 Mg Tablet PO 03/25/25 12:00 QDAY SARA Glucagon 1 mg 12/18/24 13:13 Glucagon Inj 1 Mg Vial IM Q15MIN PRN BG <70, and no IV access Heparin Sodium/Dextrose 25,000 unit in 250 mls @ 14.696 mls/hr 12/18/24 16:45 12/24/24 07:24 Heparin In D5w Ivpb IV 01/01/25 16:44 12 units/kg/hr .Q17H1M SARA 9.798 mls/hr Titration Protocol 18 UNITS/KG/HR Diltiazem HCl 125 mg/ Dextrose 125 mls @ 5 mls/hr 12/22/24 12:30 12/23/24 11:54 IV 01/21/25 12:29 5 mls/hr .Q24H SARA Administration Insulin Glargine 16 unit 12/21/24 21:00 12/23/24 21:36 Insulin Glargine (Lantus) 5 Unit/0.05 Ml (Per 5 Units) SC 01/20/25 20:59 16 unit HS SARA Administration Insulin Human Lispro 0 unit 12/19/24 17:00 12/24/24 07:33 Insulin Lispro (Admelog) 1 Unit/0.01 Ml Unit SC 01/18/25 16:59 Not Given ACHS [facility] Protocol Insulin Human Lispro 2 unit 12/21/24 08:00 12/24/24 09:22 Insulin Lispro (Admelog) 1 Unit/0.01 Ml Unit SC 01/20/25 07:59 Not Given TIDWM SARA Levalbuterol HCl 0.63 mg 12/20/24 13:00 12/24/24 07:38 Levalbuterol Rt 0.63 Mg/3 Ml Nebu INH 01/19/25 12:59 0.63 mg Q6HRRT SARA Administration Losartan Potassium 50 mg 12/22/24 21:00 12/24/24 09:31 Losartan Potassium 25 Mg Tablet PO 01/21/25 20:59 50 mg BID SARA Administration Melatonin 6 mg 12/18/24 23:30 12/23/24 21:26 Melatonin 3 Mg Tablet PO 01/17/25 23:29 6 mg HS SARA Administration Pravastatin Sodium 20 mg 12/18/24 21:00 12/23/24 21:27 Pravastatin Sodium 10 Mg Tablet PO 01/17/25 20:59 20 mg HS SARA Administration Quetiapine Fumarate 50 mg 12/20/24 16:56 12/23/24 01:26 Quetiapine Fumarate 25 Mg Tablet PO 01/20/25 08:59 50 mg QDAY PRN Administration AGITATION (MODERATE) Sennosides 1 tab 12/20/24 09:30 12/24/24 09:31 Senna Tablet PO 01/19/25 09:29 1 tab QDAY SARA Administration Protocol Sodium Chloride 3 ml 12/18/24 07:30 Sodium Chloride Rt Zhane 0.9% 3 Ml Nebu INH 01/17/25 07:29 PRN PRN SOLN
[2024-12-24] MEDS: INSULIN LISPRO (AdmeLOG) 1 UNIT/0.01 ML UNIT 2 UNIT SC (11:24)
[2024-12-24] MEDS: INSULIN LISPRO (AdmeLOG) 1 UNIT/0.01 ML UNIT SC ×2 (11:26→21:51)
[2024-12-24] MEDS: DILTIAZEM INJ 125 MG in DEXTROSE 5%-WATER 100 ML IV (11:37)
[2024-12-24 12:20] LABS: Partial Thromboplastin Time 57.2 Seconds (22.0-36.0)
--- NOTE | 2024-12-24 14:14 | ESCONSULT_ITS ---
RE: MELVIN GASPAR : 1935 DATE OF CONSULTATION: 12/24/2024 REFERRING PHYSICIAN: Dr. Aguila. REASON FOR CONSULTATION: Pulmonary emboli with hypoxemia in an 89-year-old. HISTORY OF PRESENT ILLNESS: The patient is an 89-year-old admitted for dyspnea. She was staying with relatives and had come from [place] near the [facility]. Her surgical history includes abdominal cyst removed about 5 years ago with an incidental cholecystectomy. She has chronic depression, borderline diabetes, pulmonary emboli, and valvular heart disease as noted. She is on BiPAP currently with 100% oxygen. ALLERGIES: NONE. IMMUNIZATIONS: Last tetanus is not known. She has taken flu shot every years. She has had three COVID vaccines and a single pneumonia vaccine, which is appropriate given her age. FAMILY HISTORY: Positive for diabetes in both parents. SOCIAL HISTORY: She lives with relatives who had recently come here from [place] near the [facility]. There is no known tobacco, alcohol, or drug use. PHYSICAL EXAMINATION: GENERAL: Shows a heavy woman looking her stated age. HEENT: HEENT: Benign. HEART: Benign. LUNGS: Benign. ABDOMEN: Benign. I did not find any gross irregularities. ASSESSMENT AND PLAN: I explained her condition. The family denies any chronic edema or acute edema, so this does not seem like heart failure. It does seem more like the blood clots and that may account for everything. Her Valley fever testing is negative as well. I agree with her DNR status. Her [place] fever test was positive on 12/18, which means it was run on the 12/19 and was sent to [facility] on the 12/20. We did got her on the 12/21, they probably set it up this morning and so it may be ready by Tuesday or of next or this week. I will try to call them on Tuesday. There are no rashes. We are not going to get that back, but I doubt that she has Valley fever because she does not get out of the house much . She would have to have acquired it in her drive here from [place] near the [facility]. Overall, her problem is more pressing. In the meantime, fluconazole is okay. Her procalcitonin was notably negative on admission and her diabetes control is not so great now, but her A1c was 5.7. cc: DT: 10:35:02 TT: 14:13:00 Ref: [id number] - TID: [id number]
--- NOTE | 2024-12-24 15:30 | PD.RESPRO ---
Documentation for date of: 12/24/24 Subjective Subjective Interval history: 12/24/2024: No acute overnight events to report. Patient seen and examined in hospital bed on BiPAP with good oxygenation as noted by monitoring. Patient continues to be treated with IV heparin for the small PE, fluconazole for the cocci pneumonia. Treating patient's atrial fibrillation with cardiology on board, appreciate recommendations. Guarded prognosis and the family has been updated regarding the patient's overall health; however, will continue to monitor for any acute changes. Exam Vital Signs Temp Pulse Resp BP Pulse Ox O2 Del Method O2 Flow Rate 97.3 F 106 H 20 140/94 H 99 BiPAP 6 12/24/24 12:00 12/24/24 15:16 12/24/24 15:16 12/24/24 12:00 12/24/24 15:16 12/24/24 12:00 12/24/24 12:00 FiO2 100 12/24/24 15:16 Narrative Exam Physical Exam: GENERAL: Awake, on BiPAP, appears stated age HEENT: NC/AT. Moist mucosa. PERRLA/EOMI. CARDIO: Heart RRR, no obvious murmurs, no JVD. PULM: Patient on BiPAP. Lungs have reduced breath sounds at bases but otherwise CTA B/L GI: Abdomen soft but distended, NT, +BS. SKIN/MSK/EXT: No wounds/discoloration/rashes/edema/amputations. +Pedal pulses present B/L. NEURO: Oriented x3, Moves extremities x4 and no focal neurological deficits. Objective Labs 12/25/24 05:05 12/25/24 05:05 Labs: Laboratory Results - last 24 hr 12/22/24 12/23/24 12/24/24 09:44 20:35 05:38 WBC 8.4 RBC 3.61 L Hgb 11.5 L Hct 35.3 L MCV 98 MCH 31.9 MCHC 32.6 RDW Std Deviation 53.6 H Plt Count 164 Neut % (Auto) 77 Lymph % (Auto) 9 L [place] % (Auto) 14 H Eos % (Auto) 0 Baso % (Auto) 0 Neut # (Auto) 6.4 Lymph # (Auto) 0.7 L [place] # (Auto) 1.2 H Eos # (Auto) 0.0 Baso # (Auto) 0.0 Immature Gran # (Auto) 0.03 H Absolute Nucleated RBC 0.00 Immature Gran % 0 Nucleated RBC % 0 APTT 49.5 H 59.5 H D Sodium 146 H Potassium 3.7 Chloride 98 Carbon Dioxide 39.9 H Anion Gap 8 BUN 18 Creatinine 0.8 Estim Creat Clear Calc 55.8 L eGFR > 60 BUN/Creatinine Ratio 23 H Glucose 122 H Calculated Osmolality 293 Calcium 9.0 Corrected Calcium 9.2 Total Bilirubin 0.8 AST 34 ALT 23 Alkaline Phosphatase 52 Total Protein 6.4 Albumin 3.7 Globulin 2.7 Albumin/Globulin Ratio 1.4 Hepatitis C Antibody Non Reactive 12/24/24 11:29 WBC RBC Hgb Hct MCV MCH MCHC RDW Std Deviation Plt Count Neut % (Auto) Lymph % (Auto) [place] % (Auto) Eos % (Auto) Baso % (Auto) Neut # (Auto) Lymph # (Auto) [place] # (Auto) Eos # (Auto) Baso # (Auto) Immature Gran # (Auto) Absolute Nucleated RBC Immature Gran % Nucleated RBC % APTT 57.2 H Sodium Potassium Chloride Carbon Dioxide Anion Gap BUN Creatinine Estim Creat Clear Calc eGFR BUN/Creatinine Ratio Glucose Calculated Osmolality Calcium Corrected Calcium Total Bilirubin AST ALT Alkaline Phosphatase Total Protein Albumin Globulin Albumin/Globulin Ratio Hepatitis C Antibody ABG Interpretation ABG results: 12/18/24 12/18/24 12/19/24 14:07 19:24 08:30 ABG pH 7.41 7.38 ABG pCO2 62 H 62 H ABG pO2 52 L* 76 L D ABG HCO3 39 H 37 H ABG O2 Saturation 86 L 95 ABG Base Excess 12 H 9 H VBG pH 7.38 VBG pCO2 71 H VBG pO2 34 VBG Base Excess 13 H 12/19/24 12/21/24 12/21/24 11:08 11:50 17:01 ABG pH 7.30 L 7.32 L ABG pCO2 83 H* D 83 H* ABG pO2 80 L 69 L ABG HCO3 41 H 42 H ABG O2 Saturation 96 93 ABG Base Excess 12 H 13 H VBG pH 7.52 VBG pCO2 45 D VBG pO2 64 H D VBG Base Excess 13 H 12/22/24 12/23/24 07:15 09:45 ABG pH 7.42 D 7.46 H ABG pCO2 63 H D 66 H ABG pO2 63 L 45 L* ABG HCO3 41 H 47 H ABG O2 Saturation 93 80 L ABG Base Excess 14 H 20 H VBG pH VBG pCO2 VBG pO2 VBG Base Excess Quality Measures Quality Measures none Advance care planning discussed with:: patient and child Assessment & Plan Assessment Current Active Medications: Generic Name Dose Route Start Last Admin Trade Name Freq PRN Reason Stop Dose Admin Acetaminophen 650 mg 12/18/24 12:56 Acetaminophen 325 Mg Tablet PO 01/17/25 12:55 Q6H PRN Fever >101.5 Acetaminophen 650 mg 12/18/24 12:56 Acetaminophen 325 Mg Tablet PO 01/17/25 12:55 Q6H PRN PAIN SCALE 1-3 (mild Aspirin 81 mg 12/24/24 09:30 12/24/24 09:33 Aspirin 81 Mg Chew PO 01/18/25 08:59 81 mg QDAY SARA Administration Dextrose 25 ml 12/18/24 13:13 Dextrose 50%-Water Inj 50 Ml Syringe IV 01/17/25 13:12 Q15MIN PRN BG 50-70 responsive npo pt Dextrose 50 ml 12/18/24 13:13 12/20/24 16:44 Dextrose 50%-Water Inj 50 Ml Syringe IV 01/17/25 13:12 50 ml Q15MIN PRN Administration BG <50 OR BG <70 & pt unresponsive Diltiazem HCl 240 mg 12/23/24 09:00 12/24/24 09:30 Diltiazem Cd 120 Mg Capcr PO 01/22/25 08:59 240 mg QDAY SARA Administration Fluconazole 400 mg 12/24/24 09:45 12/24/24 11:01 Fluconazole 100 Mg Tablet PO 03/25/25 12:00 Not Given QDAY SARA Glucagon 1 mg 12/18/24 13:13 Glucagon Inj 1 Mg Vial IM Q15MIN PRN BG <70, and no IV access Heparin Sodium/Dextrose 25,000 unit in 250 mls @ 14.696 mls/hr 12/18/24 16:45 12/24/24 12:38 Heparin In D5w Ivpb IV 01/01/25 16:44 12 units/kg/hr .Q17H1M SARA 9.798 mls/hr Titration Protocol 18 UNITS/KG/HR Diltiazem HCl 125 mg/ Dextrose 125 mls @ 5 mls/hr 12/22/24 12:30 02/10/25 11:37 IV 01/21/25 12:29 5 mls/hr .Q24H SARA Administration Insulin Glargine 16 unit 12/21/24 21:00 12/23/24 21:36 Insulin Glargine (Lantus) 5 Unit/0.05 Ml (Per 5 Units) SC 01/20/25 20:59 16 unit HS SARA Administration Insulin Human Lispro 0 unit 12/19/24 17:00 12/24/24 11:26 Insulin Lispro (Admelog) 1 Unit/0.01 Ml Unit SC 01/18/25 16:59 1 unit ACHS SARA Administration Protocol Insulin Human Lispro 2 unit 12/21/24 08:00 12/24/24 11:24 Insulin Lispro (Admelog) 1 Unit/0.01 Ml Unit SC 01/20/25 07:59 2 unit TIDWM SARA Administration Levalbuterol HCl 0.63 mg 12/20/24 13:00 12/24/24 12:59 Levalbuterol Rt 0.63 Mg/3 Ml Nebu INH 01/19/25 12:59 0.63 mg Q6HRRT SARA Administration Losartan Potassium 50 mg 12/22/24 21:00 12/24/24 09:31 Losartan Potassium 25 Mg Tablet PO 01/21/25 20:59 50 mg BID SARA Administration Melatonin 6 mg 12/18/24 23:30 12/23/24 21:26 Melatonin 3 Mg Tablet PO 01/17/25 23:29 6 mg HS SARA Administration Pravastatin Sodium 20 mg 12/18/24 21:00 12/23/24 21:27 Pravastatin Sodium 10 Mg Tablet PO 01/17/25 20:59 20 mg HS SARA Administration Quetiapine Fumarate 50 mg 12/20/24 16:56 12/23/24 01:26 Quetiapine Fumarate 25 Mg Tablet PO 01/20/25 08:59 50 mg QDAY PRN Administration AGITATION (MODERATE) Sennosides 1 tab 12/20/24 09:30 12/24/24 09:31 Senna Tablet PO 01/19/25 09:29 1 tab QDAY SARA Administration Protocol Sodium Chloride 3 ml 12/18/24 07:30 Sodium Chloride Rt Zhane 0.9% 3 Ml Nebu INH 01/17/25 07:29 PRN PRN SOLN Plan 89-year-old female with past medical history of congestive heart failure, atrial fibrillation on Eliquis, COPD, type 2 diabetes, hyperlipidemia presenting to the ED for dizziness and shortness of breath which has been ongoing for the past 3 days will be admitted for treatment of pulmonary embolism along with thoracentesis for pleural effusions and IV antibiotics for possible superimposed pneumonia. #Acute Hypoxic Respiratory Failure 2/2 Pleural effusion, RT #Bilateral pneumonia #Cocci Pneumonia #History of COPD #History of CHF #Respiratory acidosis COVID-negative As stated above patient has the following findings on imaging 12/19/2024: Patient started on BiPAP for CO2 retention but upon rechecking VBG will discontinue as pH is now alkalotic Last VBG: pH 7.52, pCO2 45, pO2 64 U/S Thoracentesis deferred as patient PTT was too elevated; will reassess for need Blood cultures NG within 24 hours ECHO shows Poor quality images. Normal LV size and wall thickness, Normal LVEF 50-55%. Diastolic dysfunction present but cannot grade to arrhythymia. Septal and lateral wall dysynchrony noted. RV not visulaized well. RV appears normal in size but cannot comment on function. Estimated RVSP, 38 mmHg. RAP 15. Atleast mild PAH. Moderate biatrial dilatation. Dilated IVC. Moderate MR. Mild TR. Mild AV sclerosis without stenosis. Bedside influenza A/B sent, urine Legionella; RSV negative, Cocci IgM positive Last ABG showed pH 7.30, pCO2 83, pO2 80 and HCO3 of 41 U/S guided thoracentesis cancelled, patient's family would not like invasive therapies Plan: Patient currently on BIPAP Renally dosed IV Diflucan; ID - Dr. Mackenzie consulted Completed Cefuroxime course Levalbuterol every 6 hour breathing treatments Daily weights Strict I/Os 1800 fluid restriction #Atrial tachycardia #Likely Multifocal tachycardia vs. Afib Patient has sustained tachycardia EKG reads as atrial fibrillation, but there are clear P-waves seen Cardiology, Dr. Corona, consulted - appreciate recommendations Plan: Continue diltiazem 240 mg CD twice daily and diltiazem 10 mg/h drip #Pulmonary Embolism #Sinus tachycardia likely 2/2 to PE, Pleural effusion and likely PNA Patient presented to the ED with shortness of breath and dizziness which has been ongoing for about 3 days; patient's family denies that she has had fever/chills or any sick contacts In the ED, patient was severely hypoxic requiring supplemental oxygenation with nasal cannula Well's Score of 9.0?points High risk group: 40.6% chance of PE in an ED population. Another study assigned scores > 4 as ?PE Likely? and had a 28% incidence of PE. On chest x-ray there are signs of mild heart failure along with superimposed bilateral pneumonia at the bases Bedside echo evaluation showed good ejection fraction but dilated right atrium along with dilated IVC open (roughly 2 cm without changes with inspiration) EKG showed sinus tachycardia without any concerning ST changes and troponin within normal limits BNP mildly elevated around 300 CT of the chest confirmed pulmonary artery emboli in the lower lobe left lobe with atelectasis and mild to moderate bilateral pleural effusions Plan: Continue heparin drip #RADHA, improving #Hyperkalemia Likely 2/ to Losartan which was home dose Patient's Cr uptrended since admission from 0.9 to 1.2 - now downtrending Potassium of 5.3 --> 4.1 => 3.7 Plan: Continue losartan Renally dose medications Avoid nephrotoxic agents #Ileus On exam patient had distended abdomen with hypoactive bowel sounds Patient has no BM recorded on EMR but nursing staff states that signout was given for 1 bowel movement noted on 12/23 Plan: Continue bowel regimen #Insulin-dependent type 2 diabetes A1c of 7.5 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 as noted in HPI (renal disease?) GFR and Cr are stable Plan: Patient is unable to eat secondary to being on BiPAP; will continue to monitor and consider starting parenteral feeding Continue long-acting 16 units glargine Continue 2 units lispro SSI #History of atrial fibrillation #Hyperlipidemia #Hypertension Chronic medical history Plan: Continue diltiazem 240 mg CD twice daily and diltiazem 10 mg/h drip Continue pravastatin 20 mg, aspirin 81 mg Hospital Management: Lines: PIV Diet: Carb consistent low , 1800ml fluid restriction Bowel: Zofran GI prophylaxis: Protonix DVT prophylaxis: On heparin drip Dispo: Treatment AHFR 2/2 pleural effusion, Cocci PNA, Small PE Code: DNR/DNI Patient seen and assessed with attending Dr. Cuco Negro, PGY-1 Attending Provider Attestation/Addendum 89-year-old female with multiple comorbidities including hypertension, hyperlipidemia, type 2 diabetes mellitus, atrial fibrillation on Eliquis and heart failure with preserved EF who came into the ED with shortness of breath found to have bilateral multifocal pneumonia, coccidiomycosis pneumonia, CHF exacerbation and pulmonary embolus. During course of hospitalization, patient started on high flow nasal cannula however continued to have worsening hypoxia and subsequently ICU was consulted. ICU team continues to follow the patient and plan to continue Rocephin, azithromycin, Diflucan, heparin drip in addition to Lasix. Patient continues to be on BiPAP and appreciate intensive care input.I reviewed above note and agree with findings and plans. Overnight, patient continued to have bilateral pleural effusion and plan was to obtain a thoracentesis however family refused. Will respect their wishes. Continue BiPAP therapy and monitor closely as there is a risk for worsening respiratory compromise and possible risk of intubation. Furthermore, discussed goals of care with family and wanted patient to be DNR/DNI. Updated them that we will continue BiPAP and if she was to worsen then we will be addressing comfort focused therapy. They are in agreement with our plan and they verbalized understanding and appreciation for the medical team. Continue to monitor closely. Poor prognosis overall I have also personally examined the patient with medicine team and went over assessment and plan with medical team including internet database specialist and resident physician.
[2024-12-24] MEDS: Heparin/D5w 25K 250 ML Ivpb 25,000 UNIT/250 ML BAG 9.798 UNIT IV (21:34)
[2024-12-24] MEDS: PRAVASTATIN SODIUM 10 MG TABLET 20 MG PO (21:50)
[2024-12-24] MEDS: MELATONIN 3 MG TABLET 6 MG PO (21:50)
[2024-12-24] MEDS: INSULIN GLARGINE (Lantus) 5 UNIT/0.05 ML (PER 5 UNITS) 16 UNIT SC (21:50)
[2024-12-25] VITALS (17 sets, daily range): BP systolic 131–152; BP diastolic 75–109; PULSE 70–120; RESP 16–110; TEMP 36.1–36.7; O2SAT 93–99; BMI 27.6
[2024-12-25] MEDS: LEVALBUTEROL RT 0.63 MG/3 ML NEBU INH ×4 (01:02→18:49)
[2024-12-25 05:49] LABS: Basophils % (Auto) 0 % (0-2.5); Eosinophils # (Auto) 0.1 Thou/mm3 (0.0-0.5); Eosinophils % (Auto) 1 % (0-10); Hematocrit 35.6 % (36.0-46.0); Hemoglobin 11.7 g/dL (12.0-16.0); Immature Granulocytes % (Auto) 0 % (0-0); Immature Granulocytes Auto 0.03 Thou/mm3 (0.00-0.00); Lymphocytes # (Auto) 0.8 Thou/mm3 (1.0-4.8); Lymphocytes % (Auto) 7 % (10-50); Mean Corpuscular HGB Conc 32.9 g/dl (31.0-37.0); Mean Corpuscular Hemoglobin 31.8 pg (25.0-35.0); Mean Corpuscular Volume 97 fL (80-100); Monocytes # (Auto) 1.6 Thou/mm3 (0.0-0.8); Monocytes % (Auto) 15 % (0-12); Neutrophils % (Auto) 76 % (37-80); Nucleated Red Blood Cell % 0 /100 WBC (0); Platelet Count 179 Thou/mm3 (140-440); RDW Standard Deviation 53.4 fL (36.4-46.3); Red Blood Count 3.68 Miln/mm3 (4.00-5.20); White Blood Count 10.4 Thou/mm3 (3.6-11.0)
[2024-12-25 06:22] LABS: Partial Thromboplastin Time 53.2 Seconds (22.0-36.0)
[2024-12-25 06:29] LABS: B-Type Natriuretic Peptide 50 pg/mL (0-100)
[2024-12-25 06:37] LABS: Alanine Aminotransferase 19 U/L (10-49); Albumin, Serum 3.7 gm/dL (3.4-4.8); Albumin/Globulin Ratio 1.3 (1.2-2.2); Alkaline Phosphatase 55 U/L (46-116); Anion Gap 9 (7-16); Aspartate Amino Transferase 20 U/L (0-34); BUN/Creatinine Ratio 24 Ratio (12-20); Bilirubin,Total 0.8 mg/dL (0.3-1.2); Blood Urea Nitrogen 19 mg/dL (9-23); Calcium 9.5 mg/dL (8.3-10.6); Calcium (Corrected) 9.7 mg/dL (8.5-10.1); Carbon Dioxide 39.3 mMol/L (20.0-31.0); Chloride 96 mMol/L (98-107); Creatinine (Component) 0.8 mg/dL (0.6-1.3); Estimated Creatinine Clearance 55.8 mL/min (>60); Globulin 2.8 gm/dL (2.3-3.5); Glucose 160 mg/dL (74-106); Osmolality,Calculated 292 (275-295); Potassium 3.2 mMol/L (3.4-5.1); Sodium 144 mMol/L (136-145); Total Protein 6.5 gm/dL (5.7-8.2); eGFR > 60 See Note
[2024-12-25] MEDS: INSULIN LISPRO (AdmeLOG) 1 UNIT/0.01 ML UNIT 2 UNIT SC (07:32)
[2024-12-25] MEDS: INSULIN LISPRO (AdmeLOG) 1 UNIT/0.01 ML UNIT SC ×3 (07:32→20:28)
[2024-12-25 10:01] LABS: Magnesium 1.8 mg/dL (1.6-2.6)
[2024-12-25] MEDS: ASPIRIN 81 MG CHEW PO (11:31)
[2024-12-25] MEDS: LOSARTAN POTASSIUM 25 MG TABLET 50 MG PO ×2 (11:32→20:19)
[2024-12-25] MEDS: POTASSIUM CHLORIDE 10% 20 MEQ/15 ML UDC 40 MEQ PO ×2 (11:32→17:12)
[2024-12-25] MEDS: FUROSEMIDE INJ 10 MG/ML 4ML VIAL 40 MG IVP (11:33)
[2024-12-25] MEDS: SENNA TABLET 1 TAB PO (11:35)
[2024-12-25] MEDS: DILTIAZEM INJ 125 MG in DEXTROSE 5%-WATER 100 ML 10 MG IV (11:45)
[2024-12-25] MEDS: FLUCONAZOLE SUSP 40 MG/ML ML 400 MG PO (11:46)
--- NOTE | 2024-12-25 13:53 | ESPR_ITS ---
Documentation for date of: 12/25/24 Subjective Subjective Interval history: 12/25/2024: No acute overnight events reported. Patient seen and examined, remains on BiPAP with somewhat improved settings but patient is reliant on BiPAP and desats without it. As such, attempted to change some of the p.o. medications to IV and have made the patient n.p.o. Patient was also given one- time dose of 40 mg IV Lasix for x-ray finding showing pleural effusions. Patient's diltiazem was changed to 120 mg IV set of p.o. Cardiology and infectious disease are on board and following the patient; appreciate recommendations. Cocci serology sent out to [facility] should result sometime this week. Exam Vital Signs Temp Pulse Resp BP Pulse Ox O2 Del Method O2 Flow Rate 97.0 F 98 18 140/75 H 99 BiPAP 6 12/25/24 12:00 12/25/24 13:11 12/25/24 13:11 12/25/24 12:00 12/25/24 13:11 12/25/24 12:00 12/25/24 04:00 FiO2 65 12/25/24 13:11 Narrative Exam Physical Exam: GENERAL: Awake, on BiPAP, appears stated age HEENT: NC/AT. Moist mucosa. PERRLA/EOMI. CARDIO: Heart RRR, no obvious murmurs, no JVD. PULM: Patient on BiPAP. Lungs have reduced breath sounds at bases but otherwise CTA B/L GI: Abdomen soft but distended, NT, +BS. SKIN/MSK/EXT: No wounds/discoloration/rashes/edema/amputations. +Pedal pulses present B/L. NEURO: Oriented x3, Moves extremities x4 and no focal neurological deficits. Objective Labs 12/25/24 05:05 12/25/24 05:05 Labs: Laboratory Results - last 24 hr 12/25/24 05:05 WBC 10.4 RBC 3.68 L Hgb 11.7 L Hct 35.6 L MCV 97 MCH 31.8 MCHC 32.9 RDW Std Deviation 53.4 H Plt Count 179 Neut % (Auto) 76 Lymph % (Auto) 7 L [place] % (Auto) 15 H Eos % (Auto) 1 Baso % (Auto) 0 Neut # (Auto) 8.0 H Lymph # (Auto) 0.8 L [place] # (Auto) 1.6 H Eos # (Auto) 0.1 Baso # (Auto) 0.0 Immature Gran # (Auto) 0.03 H Absolute Nucleated RBC 0.00 Immature Gran % 0 Nucleated RBC % 0 APTT 53.2 H Sodium 144 Potassium 3.2 L D Chloride 96 L Carbon Dioxide 39.3 H Anion Gap 9 BUN 19 Creatinine 0.8 Estim Creat Clear Calc 55.8 L eGFR > 60 BUN/Creatinine Ratio 24 H Glucose 160 H Calculated Osmolality 292 Calcium 9.5 Corrected Calcium 9.7 Magnesium 1.8 Total Bilirubin 0.8 AST 20 ALT 19 Alkaline Phosphatase 55 B-Natriuretic Peptide 50 Total Protein 6.5 Albumin 3.7 Globulin 2.8 Albumin/Globulin Ratio 1.3 ABG Interpretation ABG results: 12/18/24 12/18/24 12/19/24 14:07 19:24 08:30 ABG pH 7.41 7.38 ABG pCO2 62 H 62 H ABG pO2 52 L* 76 L D ABG HCO3 39 H 37 H ABG O2 Saturation 86 L 95 ABG Base Excess 12 H 9 H VBG pH 7.38 VBG pCO2 71 H VBG pO2 34 VBG Base Excess 13 H 12/19/24 12/21/24 12/21/24 11:08 11:50 17:01 ABG pH 7.30 L 7.32 L ABG pCO2 83 H* D 83 H* ABG pO2 80 L 69 L ABG HCO3 41 H 42 H ABG O2 Saturation 96 93 ABG Base Excess 12 H 13 H VBG pH 7.52 VBG pCO2 45 D VBG pO2 64 H D VBG Base Excess 13 H 12/22/24 12/23/24 07:15 09:45 ABG pH 7.42 D 7.46 H ABG pCO2 63 H D 66 H ABG pO2 63 L 45 L* ABG HCO3 41 H 47 H ABG O2 Saturation 93 80 L ABG Base Excess 14 H 20 H VBG pH VBG pCO2 VBG pO2 VBG Base Excess Quality Measures Quality Measures none Advance care planning discussed with:: patient and child Assessment & Plan Assessment Current Active Medications: Generic Name Dose Route Start Last Admin Trade Name Freq PRN Reason Stop Dose Admin Acetaminophen 650 mg 12/18/24 12:56 Acetaminophen 325 Mg Tablet PO 01/17/25 12:55 Q6H PRN Fever >101.5 Acetaminophen 650 mg 12/18/24 12:56 Acetaminophen 325 Mg Tablet PO 01/17/25 12:55 Q6H PRN PAIN SCALE 1-3 (mild Aspirin 81 mg 12/24/24 09:30 12/25/24 11:31 Aspirin 81 Mg Chew PO 01/18/25 08:59 81 mg QDAY SARA Administration Dextrose 25 ml 12/18/24 13:13 Dextrose 50%-Water Inj 50 Ml Syringe IV 01/17/25 13:12 Q15MIN PRN BG 50-70 responsive npo pt Dextrose 50 ml 12/18/24 13:13 12/20/24 16:44 Dextrose 50%-Water Inj 50 Ml Syringe IV 01/17/25 13:12 50 ml Q15MIN PRN Administration BG <50 OR BG <70 & pt unresponsive Diltiazem HCl 240 mg 12/23/24 09:00 12/25/24 11:14 Diltiazem Cd 120 Mg Capcr PO 01/22/25 08:59 Not Given QDAY SARA Fluconazole 400 mg 12/25/24 11:15 12/25/24 11:46 Fluconazole Susp 40 Mg/Ml Ml PO 01/01/25 11:14 400 mg QDAY SARA Administration Glucagon 1 mg 12/18/24 13:13 Glucagon Inj 1 Mg Vial IM Q15MIN PRN BG <70, and no IV access Heparin Sodium/Dextrose 25,000 unit in 250 mls @ 14.696 mls/hr 12/18/24 16:45 12/25/24 07:45 Heparin In D5w Ivpb IV 01/01/25 16:44 Not Given .Q17H1M [facility] Protocol 18 UNITS/KG/HR Diltiazem HCl 125 mg/ Dextrose 125 mls @ 10 mls/hr 12/25/24 11:12 12/25/24 11:45 IV 01/24/25 11:10 10 mls/hr .[id number] SARA Administration Insulin Glargine 17 unit 12/25/24 21:00 Insulin Glargine (Lantus) 5 Unit/0.05 Ml (Per 5 Units) SC 01/24/25 20:59 HS SARA Insulin Human Lispro 0 unit 12/19/24 17:00 12/25/24 11:40 Insulin Lispro (Admelog) 1 Unit/0.01 Ml Unit SC 01/18/25 16:59 Not Given ACHS SARA Protocol Insulin Human Lispro 2 unit 12/21/24 08:00 12/25/24 11:40 Insulin Lispro (Admelog) 1 Unit/0.01 Ml Unit SC 01/20/25 07:59 Not Given TIDWM SARA Levalbuterol HCl 0.63 mg 12/20/24 13:00 12/25/24 13:11 Levalbuterol Rt 0.63 Mg/3 Ml Nebu INH 01/19/25 12:59 0.63 mg Q6HRRT SARA Administration Losartan Potassium 50 mg 12/22/24 21:00 12/25/24 11:32 Losartan Potassium 25 Mg Tablet PO 01/21/25 20:59 50 mg BID SARA Administration Melatonin 6 mg 12/18/24 23:30 12/24/24 21:50 Melatonin 3 Mg Tablet PO 01/17/25 23:29 6 mg HS SARA Administration Potassium Chloride 40 meq 12/25/24 14:00 Potassium Chloride 10% 20 Meq/15 Ml Udc PO 12/25/24 14:01 X1 ONE Pravastatin Sodium 20 mg 12/18/24 21:00 12/24/24 21:50 Pravastatin Sodium 10 Mg Tablet PO 01/17/25 20:59 20 mg HS SARA Administration Quetiapine Fumarate 50 mg 12/20/24 16:56 12/23/24 01:26 Quetiapine Fumarate 25 Mg Tablet PO 01/20/25 08:59 50 mg QDAY PRN Administration AGITATION (MODERATE) Sennosides 1 tab 12/20/24 09:30 12/25/24 11:35 Senna Tablet PO 01/19/25 09:29 1 tab QDAY SARA Administration Protocol Sodium Chloride 3 ml 12/18/24 07:30 Sodium Chloride Rt Zhane 0.9% 3 Ml Nebu INH 01/17/25 07:29 PRN PRN SOLN Plan 89-year-old female with past medical history of congestive heart failure, atrial fibrillation on Eliquis, COPD, type 2 diabetes, hyperlipidemia presenting to the ED for dizziness and shortness of breath which has been ongoing for the past 3 days will be admitted for treatment of pulmonary embolism along with thoracentesis for pleural effusions and IV antibiotics for possible superimposed pneumonia. #Acute Hypoxic Respiratory Failure 2/2 Pleural effusion, RT #Bilateral pneumonia #Cocci Pneumonia #History of COPD #History of CHF #Respiratory acidosis COVID-negative As stated above patient has the following findings on imaging 12/19/2024: Patient started on BiPAP for CO2 retention but upon rechecking VBG will discontinue as pH is now alkalotic Last VBG: pH 7.52, pCO2 45, pO2 64 U/S Thoracentesis deferred as patient PTT was too elevated; will reassess for need Blood cultures NG within 24 hours ECHO shows Poor quality images. Normal LV size and wall thickness, Normal LVEF 50-55%. Diastolic dysfunction present but cannot grade to arrhythymia. Septal and lateral wall dysynchrony noted. RV not visulaized well. RV appears normal in size but cannot comment on function. Estimated RVSP, 38 mmHg. RAP 15. Atleast mild PAH. Moderate biatrial dilatation. Dilated IVC. Moderate MR. Mild TR. Mild AV sclerosis without stenosis. Bedside influenza A/B sent, urine Legionella; RSV negative, Cocci IgM positive Last ABG showed pH 7.30, pCO2 83, pO2 80 and HCO3 of 41 U/S guided thoracentesis cancelled, patient's family would not like invasive therapies Plan: Patient is now NPO except for medications 2/2 to relying BIPAP and desatting without it. Patient currently on BIPAP One time dose of 40mg IV Lasix given 2/2 to pleural effusions Renally dosed IV Diflucan; ID - Dr. Mackenzie consulted Levalbuterol every 6 hour breathing treatments Daily weights Strict I/Os #Atrial tachycardia #Likely Multifocal tachycardia vs. Afib Patient has sustained tachycardia EKG reads as atrial fibrillation, but there are clear P-waves seen Cardiology, Dr. Corona, consulted - appreciate recommendations Plan: Changed Diltiazem to IV 120mg qday #Pulmonary Embolism #Sinus tachycardia likely 2/2 to PE, Pleural effusion and likely PNA Patient presented to the ED with shortness of breath and dizziness which has been ongoing for about 3 days; patient's family denies that she has had fever/chills or any sick contacts In the ED, patient was severely hypoxic requiring supplemental oxygenation with nasal cannula Well's Score of 9.0?points High risk group: 40.6% chance of PE in an ED population. Another study assigned scores > 4 as ?PE Likely? and had a 28% incidence of PE. On chest x-ray there are signs of mild heart failure along with superimposed bilateral pneumonia at the bases Bedside echo evaluation showed good ejection fraction but dilated right atrium along with dilated IVC open (roughly 2 cm without changes with inspiration) EKG showed sinus tachycardia without any concerning ST changes and troponin within normal limits BNP mildly elevated around 300 CT of the chest confirmed pulmonary artery emboli in the lower lobe left lobe with atelectasis and mild to moderate bilateral pleural effusions Plan: Continue heparin drip #RADHA, stable #Hyperkalemia Likely 2/2 to insult from losartan which was home dose Patient's Cr uptrended since admission from 0.9 to 1.2 - now downtrending Plan: Continue losartan Renally dose medications Avoid nephrotoxic agents #Ileus On exam patient had distended abdomen with hypoactive bowel sounds Patient has no BM recorded on EMR but nursing staff states that signout was given for 1 bowel movement noted on 12/23 Plan: Continue bowel regimen Fleet enema ordered #Insulin-dependent type 2 diabetes A1c of 7.5 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 as noted in HPI (renal disease?) GFR and Cr are stable Plan: Patient is unable to eat secondary to being on BiPAP; will continue to monitor and consider starting parenteral feeding Continue long-acting 16 units glargine Continue 2 units lispro SSI #History of atrial fibrillation #Hyperlipidemia #Hypertension Chronic medical history Plan: Antihypertensives as above Continue pravastatin 20 mg, aspirin 81 mg Hospital Management: Lines: PIV Diet: NPO Bowel: Zofran GI prophylaxis: Protonix DVT prophylaxis: On heparin drip Dispo: Treatment AHFR 2/2 pleural effusion, Cocci PNA, Small PE Code: DNR/DNI Patient seen and assessed with attending Dr. Cuco Negro, PGY-1 Attending Provider Attestation/Addendum 89-year-old female with multiple comorbidities including hypertension, hyperlipidemia, type 2 diabetes mellitus, atrial fibrillation on Eliquis and heart failure with preserved EF who came into the ED with shortness of breath found to have bilateral multifocal pneumonia, coccidiomycosis pneumonia, CHF exacerbation and pulmonary embolus. During course of hospitalization, patient started on high flow nasal cannula however continued to have worsening hypoxia and subsequently ICU was consulted. ICU team continues to follow the patient and plan to continue Rocephin, azithromycin, Diflucan, heparin drip in addition to Lasix. Patient continues to be on BiPAP and appreciate intensive care input.I reviewed above note and agree with findings and plans. Overnight, patient continued to have bilateral pleural effusion and plan was to obtain a thoracentesis however family refused. Will respect their wishes. Continue BiPAP therapy and monitor closely as there is a risk for worsening respiratory compromise and possible risk of intubation. Furthermore, discussed goals of care with family and wanted patient to be DNR/DNI. Updated them that we will continue BiPAP and if she was to worsen then we will be addressing comfort focused therapy. They are in agreement with our plan and they verbalized understanding and appreciation for the medical team. Continue to monitor closely. Poor prognosis overall I have also personally examined the patient with medicine team and went over assessment and plan with medical team including design engineering intern and resident physician.
[2024-12-25] MEDS: MELATONIN 3 MG TABLET 6 MG PO (20:19)
[2024-12-25] MEDS: PRAVASTATIN SODIUM 10 MG TABLET 20 MG PO (20:19)
[2024-12-25] MEDS: Heparin/D5w 25K 250 ML Ivpb 25,000 UNIT/250 ML BAG 9.798 UNIT IV (20:20)
[2024-12-25] MEDS: INSULIN GLARGINE (Lantus) 5 UNIT/0.05 ML (PER 5 UNITS) 17 UNIT SC (20:25)
[2024-12-26] VITALS (17 sets, daily range): BP systolic 113–156; BP diastolic 64–102; PULSE 93–137; RESP 18–33; TEMP 36.3–37.1; O2SAT 81–99; BMI 26.9
[2024-12-26] MEDS: LEVALBUTEROL RT 0.63 MG/3 ML NEBU INH ×3 (00:25→13:32)
[2024-12-26] MEDS: DILTIAZEM INJ 125 MG in DEXTROSE 5%-WATER 100 ML 10 MG IV ×2 (02:55→15:23)
[2024-12-26 05:40] LABS: Basophils % (Auto) 0 % (0-2.5); Eosinophils % (Auto) 0 % (0-10); Hematocrit 35.1 % (36.0-46.0); Hemoglobin 11.5 g/dL (12.0-16.0); Immature Granulocytes % (Auto) 0 % (0-0); Immature Granulocytes Auto 0.03 Thou/mm3 (0.00-0.00); Lymphocytes # (Auto) 0.8 Thou/mm3 (1.0-4.8); Lymphocytes % (Auto) 8 % (10-50); Mean Corpuscular HGB Conc 32.8 g/dl (31.0-37.0); Mean Corpuscular Hemoglobin 31.4 pg (25.0-35.0); Mean Corpuscular Volume 96 fL (80-100); Monocytes # (Auto) 1.7 Thou/mm3 (0.0-0.8); Monocytes % (Auto) 18 % (0-12); Neutrophils # (Auto) 6.8 Thou/mm3 (1.8-7.7); Neutrophils % (Auto) 73 % (37-80); Nucleated Red Blood Cell % 0 /100 WBC (0); Platelet Count 164 Thou/mm3 (140-440); RDW Standard Deviation 52.8 fL (36.4-46.3); Red Blood Count 3.66 Miln/mm3 (4.00-5.20); White Blood Count 9.4 Thou/mm3 (3.6-11.0)
[2024-12-26 06:02] LABS: Partial Thromboplastin Time 48.7 Seconds (22.0-36.0)
[2024-12-26 06:12] LABS: Alanine Aminotransferase 12 U/L (10-49); Albumin, Serum 3.7 gm/dL (3.4-4.8); Albumin/Globulin Ratio 1.3 (1.2-2.2); Alkaline Phosphatase 56 U/L (46-116); Anion Gap 5 (7-16); Aspartate Amino Transferase 12 U/L (0-34); BUN/Creatinine Ratio 22 Ratio (12-20); Bilirubin,Total 0.7 mg/dL (0.3-1.2); Blood Urea Nitrogen 24 mg/dL (9-23); Calcium 9.6 mg/dL (8.3-10.6); Calcium (Corrected) 9.8 mg/dL (8.5-10.1); Carbon Dioxide 39.5 mMol/L (20.0-31.0); Chloride 100 mMol/L (98-107); Creatinine (Component) 1.1 mg/dL (0.6-1.3); Estimated Creatinine Clearance 40.2 mL/min (>60); Globulin 2.8 gm/dL (2.3-3.5); Glucose 198 mg/dL (74-106); Osmolality,Calculated 296 (275-295); Potassium 4.1 mMol/L (3.4-5.1); Sodium 144 mMol/L (136-145); Total Protein 6.5 gm/dL (5.7-8.2); eGFR 49 See Note
[2024-12-26] MEDS: INSULIN LISPRO (AdmeLOG) 1 UNIT/0.01 ML UNIT SC ×2 (07:27→11:40)
[2024-12-26] MEDS: INSULIN LISPRO (AdmeLOG) 1 UNIT/0.01 ML UNIT 2 UNIT SC ×2 (07:27→11:41)
[2024-12-26] MEDS: HEPARIN SOD INJ 5000 UNIT/ML VIAL 3200 UNIT IV (07:55)
--- NOTE | 2024-12-26 08:05 | XR_ITS ---
Examination: AP chest single view TECHNIQUE: AP portable upright chest single view Exam date and time: December 26, 2024 0813 hours Comparison December 24, 2024 INDICATIONS: Hypoxia today. FINDINGS: Mild heart failure pattern Mild to moderate enlargement cardiac contour Prominent vascular congestion Bibasilar edema and/or pneumonia with bilateral pleural effusions Prominent osteopenia IMPRESSION: Mild heart failure pattern Edema and/or pneumonia at the lung bases
--- NOTE | 2024-12-26 08:12 | PC.SS ---
Update: Rapid response initiated on the patient due to hypoxia. Medical team attending patient.
[2024-12-26 08:27] LABS: Base Excess 18 (-3-3); HCO3 45 mEq/L (20-26); Inspired Oxygen, FIO2 100 %; PCO2 62 mmHg (32.0-48.0); pH, Arterial 7.47 (7.35-7.45)
[2024-12-26 08:37] LABS: Allen Test Performed/OK; PO2 42 mmHg (83-108); Puncture Site Left Radial
[2024-12-26 08:38] LABS: O2 Saturation 88 % (91-98)
[2024-12-26 09:04] LABS: Lactate (Lactic Acid) 1.5 mMol/L (0.4-2.0)
--- NOTE | 2024-12-26 09:09 | PC.SS ---
Follow up note: Pt had rapid response this morning. Physicians are going speak with family about possibly placing pt on comfort care.
[2024-12-26] MEDS: FLUCONAZOLE SUSP 40 MG/ML ML 400 MG PO (09:55)
[2024-12-26] MEDS: ASPIRIN 81 MG CHEW PO (09:56)
[2024-12-26] MEDS: LOSARTAN POTASSIUM 25 MG TABLET 50 MG PO (09:59)
[2024-12-26] MEDS: ACETAzolaMIDE SOD 500 MG in SODIUM CHLORIDE 0.9% (P) 50 ML 100 MG IV (10:14)
--- NOTE | 2024-12-26 13:32 | EVENTNT_ITS ---
<Statement entered by Tani Li MD - 12/27/24 17:56> I discussed with and supervised the internet marketing analyst physician involved in the care of this patient. Patient assessment and plan was discussed with entire medicine team, including my attending. I agree with the assessment and plan as documented by internet marketing analyst doctor. Patient care was discussed with my attending physician Dr. Chapis Li, PGY-2 Documentation for date of: 12/26/24 Event Note Event Note: 12/26/2024: Rapid response called sometime around 8:30 AM for patient desaturating on max settings of BiPAP to SpO2 in the high 70s. Patient seen and assessed at bedside; airway/breathing and circulation were patent but the patient was having poor respiratory effort and poor lung expansion. On examination, patient's vitals showed normal blood pressure, tachycardia with heart rate between 110-120s and SpO2 fluctuating from high 70s to mid 80s. Chest x-ray and ABG were ordered; moreover, imaging findings showed improved lung saravia with still present mild edema and bilateral pleural effusions. ABG showed pH of 7.47, pCO2 of 62, pO2 42 and bicarb of 45; as result, patient was given a x 1 dose of acetazolamide 500 mg IV. Patient's family was updated regarding patient's worsening status; moreover, patient's family was given option of intubation/changing CODE STATUS, comfort measures or continuing current management and attempting U/S guided-thoracentesis based on radiology approval. Patient's family made it clear they do not want intubation. Patient's status slightly improved near end of rapid response with SpO2 improving to low 90s. Charlie Negro, PGY-1
--- NOTE | 2024-12-26 13:32 | ESPR_ITS ---
<Statement entered by Tani Li MD - 12/27/24 17:56> I discussed with and supervised the internal control consultant physician involved in the care of this patient. Patient assessment and plan was discussed with entire medicine team, including my attending. I agree with the assessment and plan as documented by internal control consultant doctor. Patient care was discussed with my attending physician Dr. Chapis Li, PGY-2 Documentation for date of: 12/26/24 Subjective Subjective Interval history: 12/26/2024: No acute overnight events to report, patient remained on BiPAP. There was a rapid response called sometime around 8:30 AM on 12/26; there is an event note depicting the events that transpired. Patient continues to be treated with Diflucan for the cocci pneumonia, pending [facility] report. Patient also continues to be on heparin drip for the subsegmental PE. Will reassess need for ultrasound-guided thoracentesis based on family decision. Patient continues to be on BiPAP and status waxes and wanes; currently stable with SpO2 in the low 90s. Will continue to monitor for any acute changes. Exam Vital Signs Temp Pulse Resp BP Pulse Ox O2 Del Method O2 Flow Rate 97.9 F 113 H 21 H 113/94 H 93 L BiPAP 16 12/26/24 12:00 12/26/24 12:00 12/26/24 12:00 12/26/24 12:00 12/26/24 12:00 12/26/24 12:00 12/26/24 04:00 FiO2 70 12/26/24 10:03 Narrative Exam Physical Exam: GENERAL: Awake, on BiPAP, appears stated age HEENT: NC/AT. Moist mucosa. PERRLA/EOMI. CARDIO: Heart RRR, no obvious murmurs, no JVD. PULM: Patient on BiPAP. Lungs have reduced breath sounds at bases but otherwise CTA B/L GI: Abdomen soft but distended, NT, +BS. SKIN/MSK/EXT: No wounds/discoloration/rashes/edema/amputations. +Pedal pulses present B/L. NEURO: Oriented x3, Moves extremities x4 and no focal neurological deficits. Objective Labs 12/26/24 04:15 12/26/24 04:15 Labs: Laboratory Results - last 24 hr 02/11/0712/26/24 12/26/24 04:15 08:21 08:51 WBC 9.4 RBC 3.66 L Hgb 11.5 L Hct 35.1 L MCV 96 MCH 31.4 MCHC 32.8 RDW Std Deviation 52.8 H Plt Count 164 Neut % (Auto) 73 Lymph % (Auto) 8 L [place] % (Auto) 18 H Eos % (Auto) 0 Baso % (Auto) 0 Neut # (Auto) 6.8 Lymph # (Auto) 0.8 L [place] # (Auto) 1.7 H Eos # (Auto) 0.0 Baso # (Auto) 0.0 Immature Gran # (Auto) 0.03 H Absolute Nucleated RBC 0.00 Immature Gran % 0 Nucleated RBC % 0 APTT 48.7 H Puncture Site Left Radial ABG pH 7.47 H ABG pCO2 62 H ABG pO2 42 L* ABG HCO3 45 H ABG O2 Saturation 88 L ABG Base Excess 18 H FiO2 100 Sodium 144 Potassium 4.1 D Chloride 100 Carbon Dioxide 39.5 H Anion Gap 5 L BUN 24 H Creatinine 1.1 Estim Creat Clear Calc 40.2 L eGFR 49 L BUN/Creatinine Ratio 22 H Glucose 198 H Calculated Osmolality 296 H Lactic Acid 1.5 Calcium 9.6 Corrected Calcium 9.8 Total Bilirubin 0.7 AST 12 ALT 12 Alkaline Phosphatase 56 Total Protein 6.5 Albumin 3.7 Globulin 2.8 Albumin/Globulin Ratio 1.3 ABG Interpretation ABG results: 12/18/24 12/18/24 12/19/24 14:07 19:24 08:30 ABG pH 7.41 7.38 ABG pCO2 62 H 62 H ABG pO2 52 L* 76 L D ABG HCO3 39 H 37 H ABG O2 Saturation 86 L 95 ABG Base Excess 12 H 9 H VBG pH 7.38 VBG pCO2 71 H VBG pO2 34 VBG Base Excess 13 H 12/19/24 12/21/24 12/21/24 11:08 11:50 17:01 ABG pH 7.30 L 7.32 L ABG pCO2 83 H* D 83 H* ABG pO2 80 L 69 L ABG HCO3 41 H 42 H ABG O2 Saturation 96 93 ABG Base Excess 12 H 13 H VBG pH 7.52 VBG pCO2 45 D VBG pO2 64 H D VBG Base Excess 13 H 12/22/24 12/23/24 12/26/24 07:15 09:45 08:21 ABG pH 7.42 D 7.46 H 7.47 H ABG pCO2 63 H D 66 H 62 H ABG pO2 63 L 45 L* 42 L* ABG HCO3 41 H 47 H 45 H ABG O2 Saturation 93 80 L 88 L ABG Base Excess 14 H 20 H 18 H VBG pH VBG pCO2 VBG pO2 VBG Base Excess Quality Measures Quality Measures none Advance care planning discussed with:: patient and child Assessment & Plan Assessment Current Active Medications: Generic Name Dose Route Start Last Admin Trade Name Freq PRN Reason Stop Dose Admin Acetaminophen 650 mg 12/18/24 12:56 Acetaminophen 325 Mg Tablet PO 01/17/25 12:55 Q6H PRN Fever >101.5 Acetaminophen 650 mg 12/18/24 12:56 Acetaminophen 325 Mg Tablet PO 01/17/25 12:55 Q6H PRN PAIN SCALE 1-3 (mild Aspirin 81 mg 12/24/24 09:30 12/26/24 09:56 Aspirin 81 Mg Chew PO 01/18/25 08:59 81 mg QDAY SARA Administration Dextrose 25 ml 12/18/24 13:13 Dextrose 50%-Water Inj 50 Ml Syringe IV 01/17/25 13:12 Q15MIN PRN BG 50-70 responsive npo pt Dextrose 50 ml 12/18/24 13:13 12/20/24 16:44 Dextrose 50%-Water Inj 50 Ml Syringe IV 01/17/25 13:12 50 ml Q15MIN PRN Administration BG <50 OR BG <70 & pt unresponsive Diltiazem HCl 240 mg 12/23/24 09:00 12/25/24 11:14 Diltiazem Cd 120 Mg Capcr PO 01/22/25 08:59 Not Given QDAY SARA Fluconazole 400 mg 12/25/24 11:15 12/26/24 09:55 Fluconazole Susp 40 Mg/Ml Ml PO 01/01/25 11:14 400 mg QDAY SARA Administration Glucagon 1 mg 12/18/24 13:13 Glucagon Inj 1 Mg Vial IM Q15MIN PRN BG <70, and no IV access Heparin Sodium/Dextrose 25,000 unit in 250 mls @ 14.696 mls/hr 12/18/24 16:45 12/26/24 07:55 Heparin In D5w Ivpb IV 01/01/25 16:44 14 units/kg/hr .Q17H1M SARA 11.431 mls/hr Titration Protocol 18 UNITS/KG/HR Diltiazem HCl 125 mg/ Dextrose 125 mls @ 10 mls/hr 12/25/24 11:12 12/26/24 02:55 IV 01/24/25 11:10 10 mls/hr .[id number] SARA Administration Insulin Glargine 20 unit 12/26/24 21:00 Insulin Glargine (Lantus) 5 Unit/0.05 Ml (Per 5 Units) SC 01/25/25 20:59 HS SARA Insulin Human Lispro 0 unit 12/19/24 17:00 12/26/24 11:40 Insulin Lispro (Admelog) 1 Unit/0.01 Ml Unit SC 01/18/25 16:59 2 unit ACHS SARA Administration Protocol Insulin Human Lispro 2 unit 12/21/24 08:00 12/26/24 11:41 Insulin Lispro (Admelog) 1 Unit/0.01 Ml Unit SC 01/20/25 07:59 2 unit TIDWM SARA Administration Levalbuterol HCl 0.63 mg 12/20/24 13:00 12/26/24 13:32 Levalbuterol Rt 0.63 Mg/3 Ml Nebu INH 01/19/25 12:59 0.63 mg Q6HRRT SARA Administration Losartan Potassium 50 mg 12/22/24 21:00 12/26/24 09:59 Losartan Potassium 25 Mg Tablet PO 01/21/25 20:59 50 mg BID SARA Administration Melatonin 6 mg 12/18/24 23:30 12/25/24 20:19 Melatonin 3 Mg Tablet PO 01/17/25 23:29 6 mg HS SARA Administration Pravastatin Sodium 20 mg 12/18/24 21:00 12/25/24 20:19 Pravastatin Sodium 10 Mg Tablet PO 01/17/25 20:59 20 mg HS SARA Administration Quetiapine Fumarate 50 mg 12/20/24 16:56 12/23/24 01:26 Quetiapine Fumarate 25 Mg Tablet PO 01/20/25 08:59 50 mg QDAY PRN Administration AGITATION (MODERATE) Sennosides 1 tab 12/20/24 09:30 12/26/24 09:57 Senna Tablet PO 01/19/25 09:29 Not Given QDAY SARA Protocol Sodium Chloride 3 ml 12/18/24 07:30 Sodium Chloride Rt [place]ane 0.9% 3 Ml Nebu INH 01/17/25 07:29 PRN PRN SOLN Plan 89-year-old female with past medical history of congestive heart failure, atrial fibrillation on Eliquis, COPD, type 2 diabetes, hyperlipidemia presenting to the ED for dizziness and shortness of breath which has been ongoing for the past 3 days will be admitted for treatment of pulmonary embolism along with thoracentesis for pleural effusions and IV antibiotics for possible superimposed pneumonia. #Acute Hypoxic Respiratory Failure 2/2 Pleural effusion, RT #Bilateral pneumonia #Cocci Pneumonia #History of COPD #Mild pulmonary arterial hypertension #Respiratory acidosis COVID-negative As stated above patient has the following findings on imaging 12/19/2024: Patient started on BiPAP for CO2 retention but upon rechecking VBG will discontinue as pH is now alkalotic Last VBG: pH 7.52, pCO2 45, pO2 64 U/S Thoracentesis deferred as patient PTT was too elevated; will reassess for need Blood cultures NG within 24 hours ECHO shows Poor quality images. Normal LV size and wall thickness, Normal LVEF 50-55%. Diastolic dysfunction present but cannot grade to arrhythymia. Septal and lateral wall dysynchrony noted. RV not visulaized well. RV appears normal in size but cannot comment on function. Estimated RVSP, 38 mmHg. RAP 15. Atleast mild PAH. Moderate biatrial dilatation. Dilated IVC. Moderate MR. Mild TR. Mild AV sclerosis without stenosis. Bedside influenza A/B sent, urine Legionella; RSV negative, Cocci IgM positive Last ABG showed pH 7.30, pCO2 83, pO2 80 and HCO3 of 41 U/S guided thoracentesis cancelled, patient's family would not like invasive therapies Plan: Patient is NPO except for medications 2/2 to relying BIPAP and desatting without it. Patient continues to be on BIPAP Renally dosed Diflucan; ID - Dr. Mackenzie consulted Levalbuterol every 6 hour breathing treatments Daily weights Strict I/Os #Atrial tachycardia #Likely Multifocal tachycardia vs. Afib Patient has sustained tachycardia EKG reads as atrial fibrillation, but there are clear P-waves seen Cardiology, Dr. Corona, consulted - appreciate recommendations Plan: Continue diltiazem to IV 120mg qday Will consider adding rate control agent if the patient remains tachycardic #Pulmonary Embolism #Sinus tachycardia likely 2/2 to PE, Pleural effusion and likely PNA Patient presented to the ED with shortness of breath and dizziness which has been ongoing for about 3 days; patient's family denies that she has had fever/chills or any sick contacts In the ED, patient was severely hypoxic requiring supplemental oxygenation with nasal cannula Well's Score of 9.0?points High risk group: 40.6% chance of PE in an ED population. Another study assigned scores > 4 as ?PE Likely? and had a 28% incidence of PE. On chest x-ray there are signs of mild heart failure along with superimposed bilateral pneumonia at the bases Bedside echo evaluation showed good ejection fraction but dilated right atrium along with dilated IVC open (roughly 2 cm without changes with inspiration) EKG showed sinus tachycardia without any concerning ST changes and troponin within normal limits BNP mildly elevated around 300 CT of the chest confirmed pulmonary artery emboli in the lower lobe left lobe with atelectasis and mild to moderate bilateral pleural effusions Plan: Continue heparin drip Will consider changing to Lovenox if the patient's family does not want ultrasound-guided thoracentesis #RADHA, stable #Hyperkalemia Likely 2/2 to insult from losartan which was home dose Patient's Cr uptrended since admission from 0.9 to 1.2 - now downtrending Plan: Continue losartan Renally dose medications Avoid nephrotoxic agents #Ileus On exam patient had distended abdomen with hypoactive bowel sounds Patient has no BM recorded on EMR but nursing staff states that signout was given for 1 bowel movement noted on 12/23 Plan: Continue bowel regimen Mineral oil enema ordered #Insulin-dependent type 2 diabetes A1c of 7.5 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 as noted in HPI (renal disease?) GFR and Cr are stable Plan: Patient is unable to eat secondary to being on BiPAP; will continue to monitor and consider starting parenteral feeding Increased long-acting to 20 units glargine Continue 2 units lispro SSI #History of atrial fibrillation #Hyperlipidemia #Hypertension Chronic medical history Plan: Antihypertensives as above Continue pravastatin 20 mg, aspirin 81 mg Hospital Management: Lines: PIV Diet: NPO Bowel: Zofran GI prophylaxis: Protonix DVT prophylaxis: On heparin drip Dispo: Treatment AHFR 2/2 pleural effusion, Cocci PNA, Small PE Code: DNR/DNI Patient seen and assessed with attending Dr. Healy and senior resident Dr. Jen Negro, PGY-1 Attending Provider Attestation/Addendum I attest that I was physically present for the evaluation, physical examination, lab and imaging review of the patient with the residents. I discussed the case with the residents and agree with the findings and plans of care as documented above. Benji Healy MD
[2024-12-26 13:56] LABS: Base Excess 14 (-3-3); HCO3 40 mEq/L (20-26); Inspired Oxygen, FIO2 70 %; O2 Saturation 95 % (91-98); PCO2 58 mmHg (32.0-48.0); PO2 72 mmHg (83-108); pH, Arterial 7.45 (7.35-7.45)
[2024-12-26 14:07] LABS: Allen Test Performed/OK; Puncture Site Right Radial
[2024-12-26 14:45] LABS: Partial Thromboplastin Time 76.2 Seconds (22.0-36.0)
--- NOTE | 2024-12-26 14:48 | PD.IDPROG ---
Subjective Subjective Interval history: called UCD test so far neg makes sense as she is not that mobile. Exam Vital Signs Temp Pulse Resp BP Pulse Ox O2 Del Method O2 Flow Rate 97.9 F 93 20 113/94 H 95 BiPAP 16 12/26/24 12:00 12/26/24 13:33 12/26/24 13:33 12/26/24 12:00 12/26/24 13:33 12/26/24 12:00 12/26/24 04:00 FiO2 70 12/26/24 13:33 Narrative Exam on 70% O2 Objective - Internal Medicine Labs 12/26/24 04:15 12/26/24 04:15 Labs: Laboratory Results - last 24 hr 12/26/24 12/26/24 12/26/24 04:15 08:21 08:51 WBC 9.4 RBC 3.66 L Hgb 11.5 L Hct 35.1 L MCV 96 MCH 31.4 MCHC 32.8 RDW Std Deviation 52.8 H Plt Count 164 Neut % (Auto) 73 Lymph % (Auto) 8 L [place] % (Auto) 18 H Eos % (Auto) 0 Baso % (Auto) 0 Neut # (Auto) 6.8 Lymph # (Auto) 0.8 L [place] # (Auto) 1.7 H Eos # (Auto) 0.0 Baso # (Auto) 0.0 Immature Gran # (Auto) 0.03 H Absolute Nucleated RBC 0.00 Immature Gran % 0 Nucleated RBC % 0 APTT 48.7 H Puncture Site Left Radial ABG pH 7.47 H ABG pCO2 62 H ABG pO2 42 L* ABG HCO3 45 H ABG O2 Saturation 88 L ABG Base Excess 18 H FiO2 100 Sodium 144 Potassium 4.1 D Chloride 100 Carbon Dioxide 39.5 H Anion Gap 5 L BUN 24 H Creatinine 1.1 Estim Creat Clear Calc 40.2 L eGFR 49 L BUN/Creatinine Ratio 22 H Glucose 198 H Calculated Osmolality 296 H Lactic Acid 1.5 Calcium 9.6 Corrected Calcium 9.8 Total Bilirubin 0.7 AST 12 ALT 12 Alkaline Phosphatase 56 Total Protein 6.5 Albumin 3.7 Globulin 2.8 Albumin/Globulin Ratio 1.3 12/26/24 12/26/24 13:44 13:57 WBC RBC Hgb Hct MCV MCH MCHC RDW Std Deviation Plt Count Neut % (Auto) Lymph % (Auto) [place] % (Auto) Eos % (Auto) Baso % (Auto) Neut # (Auto) Lymph # (Auto) [place] # (Auto) Eos # (Auto) Baso # (Auto) Immature Gran # (Auto) Absolute Nucleated RBC Immature Gran % Nucleated RBC % APTT 76.2 H D Puncture Site Right Radial ABG pH 7.45 ABG pCO2 58 H ABG pO2 72 L D ABG HCO3 40 H ABG O2 Saturation 95 ABG Base Excess 14 H FiO2 70 Sodium Potassium Chloride Carbon Dioxide Anion Gap BUN Creatinine Estim Creat Clear Calc eGFR BUN/Creatinine Ratio Glucose Calculated Osmolality Lactic Acid Calcium Corrected Calcium Total Bilirubin AST ALT Alkaline Phosphatase Total Protein Albumin Globulin Albumin/Globulin Ratio ABG Interpretation ABG results: 12/18/24 12/18/24 12/19/24 14:07 19:24 08:30 ABG pH 7.41 7.38 ABG pCO2 62 H 62 H ABG pO2 52 L* 76 L D ABG HCO3 39 H 37 H ABG O2 Saturation 86 L 95 ABG Base Excess 12 H 9 H VBG pH 7.38 VBG pCO2 71 H VBG pO2 34 VBG Base Excess 13 H 12/19/24 12/21/24 12/21/24 11:08 11:50 17:01 ABG pH 7.30 L 7.32 L ABG pCO2 83 H* D 83 H* ABG pO2 80 L 69 L ABG HCO3 41 H 42 H ABG O2 Saturation 96 93 ABG Base Excess 12 H 13 H VBG pH 7.52 VBG pCO2 45 D VBG pO2 64 H D VBG Base Excess 13 H 12/22/24 12/23/24 12/26/24 07:15 09:45 08:21 ABG pH 7.42 D 7.46 H 7.47 H ABG pCO2 63 H D 66 H 62 H ABG pO2 63 L 45 L* 42 L* ABG HCO3 41 H 47 H 45 H ABG O2 Saturation 93 80 L 88 L ABG Base Excess 14 H 20 H 18 H VBG pH VBG pCO2 VBG pO2 VBG Base Excess 12/26/24 13:44 ABG pH 7.45 ABG pCO2 58 H ABG pO2 72 L D ABG HCO3 40 H ABG O2 Saturation 95 ABG Base Excess 14 H VBG pH VBG pCO2 VBG pO2 VBG Base Excess Assessment & Plan A&P Narrative 89 y/o with effusion and possible pneumonia with a neg procal 2/. had 3d of azithro 500 already. so time to stop that. cocci pos IgM so far. test CF and repeat ID pending at [facility] not yet finalized. changed to all po regimen over last weekend. home at your discretion. I will see tuesday if she remains in house. ok to stop flucon if cocci neg at d but that is likely to be later this week. repeat cxr in 4-6 weeks. later if cocci positive. ok to add bnp to eval given echo findings that are equivocal for chf. overall situation not great. 70% is lots of O2 Time Spent With Patient Time: Total time spent is greater than 50% in coordination of care (as documented) at patient's floor/unit and/or counseling patient:
[2024-12-26] MEDS: FUROSEMIDE INJ 10 MG/ML 4ML VIAL 40 MG IVP (16:59)
--- NOTE | 2024-12-26 17:16 | EVENTNT_ITS ---
<Statement entered by Tani Li MD - 12/27/24 13:38> Patient had multiple rapid responses for hypoxia with family being present. After discussing among themselves, family decided to start comfort care. We respected their decision and comfort care was initiated. I discussed with and supervised the fashion styling intern physician involved in the care of this patient. Patient assessment and plan was discussed with entire medicine team, including my attending. I agree with the assessment and plan as documented by fashion styling intern doctor. Patient care was discussed with my attending physician Dr. Niraj Li, PGY-2 Documentation for date of: 12/26/24: Rapid response called sometime around 4:30 PM for patient desaturating again with SpO2 down to 60s. Patient's airway/breathing/circulation assessed. Patient remains hypoxic on the BiPAP; changed BiPAP settings and ordered IV Lasix 40 mg x 1. Patient's family was bedside and was explained patient's worsening status. The family is requesting 30 minutes additional time so that they can discuss amongst themselves what their wishes are. Will continue to monitor for any acute changes. Charlie Negro, PGY-1 Event Note Event Note: 12/26/2024:
[2024-12-26] MEDS: Morphine IV Drip 100mg/100ml 100 ML IV (18:12)
[2024-12-26] MEDS: LORazepam 2 MG/ML VIAL 1 MG IVP ×2 (18:22→22:26)
[2024-12-26] MEDS: MORPHINE SULF INJ 10 MG/ML VIAL 2 MG IVP ×2 (18:22→22:25)
[2024-12-26] MEDS: SCOPOLAMINE 1 MG TDSY TOP (19:24)
[2024-12-27] VITALS: PULSE 132
[2024-12-27] MEDS: LORazepam 2 MG/ML VIAL 1 MG IVP ×3 (02:02→21:35)
[2024-12-27] MEDS: MORPHINE SULF INJ 10 MG/ML VIAL 2 MG IVP ×2 (02:02→04:16)
[2024-12-27 04:00] VITALS: PULSE 134; PULSE 137; RESP 8; TEMP 36.3; O2SAT 65
[2024-12-27 08:00] VITALS: BP 92/57; PULSE 137; RESP 8; O2SAT 66
[2024-12-27 12:00] VITALS: BP 118/60; PULSE 137; PULSE 138; RESP 15; O2SAT 65
--- NOTE | 2024-12-27 14:15 | ESPR_ITS ---
<Statement entered by Tani Li MD - 12/27/24 18:21> Patient on comfort care with family surrounding her. I discussed with and supervised the internal revenue service agent physician involved in the care of this patient. Patient assessment and plan was discussed with entire medicine team, including my attending. I agree with the assessment and plan as documented by internal revenue service agent doctor. Patient care was discussed with my attending physician Dr. Chapis Li, PGY-2 Documentation for date of: 12/27/24 Subjective Subjective Interval history: 12/27/2024: Patient is in comfort care. Exam Vital Signs Temp Pulse Resp BP Pulse Ox O2 Del Method O2 Flow Rate 97.4 F 138 H 15 118/60 65 L Nasal Cannula 2 12/27/24 04:00 12/27/24 12:00 12/27/24 12:00 12/27/24 12:00 12/27/24 12:00 12/27/24 12:00 12/27/24 12:00 FiO2 65 12/26/24 15:16 Narrative Exam Limited physical exam since patient on comfort care On 2L NC with tele monitoring active Vitals: Noted to be tachycardic 120s; normotensive, on 2L NC satting in 60-70s with no increased work of breathing Objective Labs 12/26/24 04:15 12/26/24 04:15 Labs: Laboratory Results - last 24 hr 12/26/24 13:57 APTT 76.2 H D ABG Interpretation ABG results: 12/18/24 12/18/24 12/19/24 14:07 19:24 08:30 ABG pH 7.41 7.38 ABG pCO2 62 H 62 H ABG pO2 52 L* 76 L D ABG HCO3 39 H 37 H ABG O2 Saturation 86 L 95 ABG Base Excess 12 H 9 H VBG pH 7.38 VBG pCO2 71 H VBG pO2 34 VBG Base Excess 13 H 12/19/24 12/21/24 12/21/24 11:08 11:50 17:01 ABG pH 7.30 L 7.32 L ABG pCO2 83 H* D 83 H* ABG pO2 80 L 69 L ABG HCO3 41 H 42 H ABG O2 Saturation 96 93 ABG Base Excess 12 H 13 H VBG pH 7.52 VBG pCO2 45 D VBG pO2 64 H D VBG Base Excess 13 H 02/08/25 02/09/25 02/12/25 07:15 09:45 08:21 ABG pH 7.42 D 7.46 H 7.47 H ABG pCO2 63 H D 66 H 62 H ABG pO2 63 L 45 L* 42 L* ABG HCO3 41 H 47 H 45 H ABG O2 Saturation 93 80 L 88 L ABG Base Excess 14 H 20 H 18 H VBG pH VBG pCO2 VBG pO2 VBG Base Excess 12/26/24 13:44 ABG pH 7.45 ABG pCO2 58 H ABG pO2 72 L D ABG HCO3 40 H ABG O2 Saturation 95 ABG Base Excess 14 H VBG pH VBG pCO2 VBG pO2 VBG Base Excess Quality Measures Quality Measures none Advance care planning discussed with:: child Assessment & Plan Assessment Current Active Medications: Generic Name Dose Route Start Last Admin Trade Name Freq PRN Reason Stop Dose Admin Morphine Sulfate 100 mls @ 1 mls/hr 12/26/24 17:54 12/27/24 02:26 Morphine Sulfate Iv Drip 100mg/100ml IV 12/31/24 17:53 2 mg/hr .Q24H PRN 2 mls/hr PAIN (COMFORT CARE) Titration Protocol 1 MG/HR Lorazepam 1 mg 12/26/24 21:31 12/27/24 12:16 Lorazepam 2 Mg/Ml Vial IVP 12/31/24 21:29 1 mg Q2HR PRN Administration ANXIETY Morphine Sulfate 2 mg 12/26/24 17:54 12/27/24 04:16 Morphine Sulf Inj 10 Mg/Ml Vial IVP 12/31/24 17:53 2 mg Q30M PRN Administration PAIN Scopolamine 1 mg 12/26/24 18:00 12/26/24 19:24 Scopolamine 1 Mg Tdsy TOP 01/25/25 17:59 1 mg Q3D SARA Administration Plan Patient is on comfort care; measures initiated. 89-year-old female with past medical history of congestive heart failure, atrial fibrillation on Eliquis, COPD, type 2 diabetes, hyperlipidemia presenting to the ED for dizziness and shortness of breath which has been ongoing for the past 3 days will be admitted for treatment of pulmonary embolism along with thoracentesis for pleural effusions and IV antibiotics for possible superimposed pneumonia. #Acute Hypoxic Respiratory Failure 2/2 Pleural effusion, RT #Bilateral pneumonia #Cocci Pneumonia #History of COPD #Mild pulmonary arterial hypertension #Respiratory acidosis COVID-negative As stated above patient has the following findings on imaging 12/19/2024: Patient started on BiPAP for CO2 retention but upon rechecking VBG will discontinue as pH is now alkalotic Last VBG: pH 7.52, pCO2 45, pO2 64 U/S Thoracentesis deferred as patient PTT was too elevated; will reassess for need Blood cultures NG within 24 hours ECHO shows Poor quality images. Normal LV size and wall thickness, Normal LVEF 50-55%. Diastolic dysfunction present but cannot grade to arrhythymia. Septal and lateral wall dysynchrony noted. RV not visulaized well. RV appears normal in size but cannot comment on function. Estimated RVSP, 38 mmHg. RAP 15. Atleast mild PAH. Moderate biatrial dilatation. Dilated IVC. Moderate MR. Mild TR. Mild AV sclerosis without stenosis. Bedside influenza A/B sent, urine Legionella; RSV negative, Cocci IgM positive Last ABG showed pH 7.30, pCO2 83, pO2 80 and HCO3 of 41 U/S guided thoracentesis cancelled, patient's family would not like invasive therapies Plan: Comfort measure initiated IV morphine gtt for respiratory distress PRN Ativan #Atrial tachycardia #Likely Multifocal tachycardia vs. Afib Patient has sustained tachycardia EKG reads as atrial fibrillation, but there are clear P-waves seen Cardiology, Dr. Corona, consulted - appreciate recommendations Plan: Comfort measure initiated #Pulmonary Embolism #Sinus tachycardia likely 2/2 to PE, Pleural effusion and likely PNA Patient presented to the ED with shortness of breath and dizziness which has been ongoing for about 3 days; patient's family denies that she has had fever/chills or any sick contacts In the ED, patient was severely hypoxic requiring supplemental oxygenation with nasal cannula Well's Score of 9.0?points High risk group: 40.6% chance of PE in an ED population. Another study assigned scores > 4 as ?PE Likely? and had a 28% incidence of PE. On chest x-ray there are signs of mild heart failure along with superimposed bilateral pneumonia at the bases Bedside echo evaluation showed good ejection fraction but dilated right atrium along with dilated IVC open (roughly 2 cm without changes with inspiration) EKG showed sinus tachycardia without any concerning ST changes and troponin within normal limits BNP mildly elevated around 300 CT of the chest confirmed pulmonary artery emboli in the lower lobe left lobe with atelectasis and mild to moderate bilateral pleural effusions Plan: Comfort measure initiated #RADHA, stable #Hyperkalemia Likely 2/2 to insult from losartan which was home dose Patient's Cr uptrended since admission from 0.9 to 1.2 - now downtrending Plan: Comfort measure initiated #Ileus On exam patient had distended abdomen with hypoactive bowel sounds Patient has no BM recorded on EMR but nursing staff states that signout was given for 1 bowel movement noted on 12/23 Plan: Comfort measure initiated #Insulin-dependent type 2 diabetes A1c of 7.5 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 as noted in HPI (renal disease?) GFR and Cr are stable Plan: Comfort measure initiated #History of atrial fibrillation #Hyperlipidemia #Hypertension Chronic medical history Plan: Comfort measure initiated Hospital Management: Lines: PIV Diet: NPO Bowel: Not needed; scopolamine patch on GI prophylaxis: not needed DVT prophylaxis: not needed Dispo: Comfort care Code: DNR/DNI Patient seen and assessed with attending Dr. Healy and senior resident Dr. Jen Negro, PGY-1 Attending Provider Attestation/Addendum I attest that I was physically present for the evaluation, physical examination, lab and imaging review of the patient with the residents. I discussed the case with the residents and agree with the findings and plans of care as documented above. Benji Healy MD
[2024-12-27 16:00] VITALS: PULSE 138; PULSE 139; RESP 21; O2SAT 64
--- NOTE | 2024-12-27 16:53 | PC.SS ---
Rounding Note: Patient has been transitioned to comfort care. Patient on morphine drip.
[2024-12-28] VITALS: BP 103/52; PULSE 138; RESP 12; TEMP 37.1; O2SAT 62
[2024-12-28 06:00] VITALS: BMI 26.8
--- NOTE | 2024-12-28 07:30 | PD.DPN ---
Documentation for date of: 12/28/24 Pronouncement Note Date and Time of Date of : 12/28/24 Time of : 07:24 PCOD Preliminary cause of : Cardiopulmonary arrest Contributing Factors (1) COPD exacerbation: (2) Pneumonia: (3) Acute pulmonary coccidioidomycosis: (4) Pulmonary embolism: Summary Additional details: Called by patient's nurse about patient unresponsivenes. At bedside patient does not have spontaneous breathing or movement. On examination, patient is unresponsive to verbal or painful stimuli , has absent heart sound and breath sound over whole precordium and bilateral lung saravia, absent carotid pulses bilaterally and absent corenal reflexes bilaterally. Patient has been DNR/DNI on comfort measures. Patient is pronounced on 12/28/2024 at 7:24 am. Family at bedside notified and condolences exchanged. Benji Healy MD Additional Data Confirmation of : no pulse, no respirations, no heart sounds and pupils fixed and dilated Family: at bedside Attending/PCP notified?: Yes Attending physician: Benji Healy MD Was code activated?: No Autopsy requested?: No open cut examiner notified?: No Organ bank notified?: No
--- NOTE | 2024-12-28 07:41 | DES_ITS ---
<Statement entered by Benji Healy MD - 12/30/24 07:15> I attest that I was physically present for the evaluation, physical examination, lab and imaging review of the patient with the residents. I discussed the case with the residents and agree with the findings and plans of care as documented below. Benji Healy MD <Statement entered by Tani Li MD - 12/29/24 16:53> I discussed with and supervised the internal controls specialist physician involved in the care of this patient. Patient assessment and plan was discussed with entire medicine team, including my attending. I agree with the assessment and plan as documented by internal controls specialist doctor. Patient care was discussed with my attending physician Dr. Niraj Li, PGY-2 Documentation for date of: 12/28/24 Summary Date and Time Date of admission: 12/18/24 14:32 Date of : 12/28/24 Time of : 07:24 Summary Hospital Course: 89-year-old female with past medical history of congestive heart failure, atrial fibrillation, COPD, type 2 diabetes, hyperlipidemia presented to the ED for shortness of breath and dizziness for the past 3 days. Per her account, patient has been bedbound for the past week at home. In the ED, the patient was tachypneic and tachycardic and desatting with a oxygen of 72 on room air. Patient was started on supplemental oxygenation, chest x-ray showed mild heart failure pattern along with possible superimposed pneumonia at the lung bases with prominent vascular congestion with right pleural effusion. EKG showed sinus tachycardia with no concerning ST changes, and CT of the chest showed pulmonary artery emboli in the lower left lobe with atelectasis and mild to moderate bilateral pleural effusions. Patient was admitted for treatment of pulmonary believes him along with attempted drainage of the pleural effusions. IR was consulted for ultrasound-guided thoracentesis; however, there was no feasible access site. Patient's oxygenation status worsened and she further supplemental oxygenation in the form of Oxy Mask; however, eventually patient required BiPAP. ICU team was consulted for possible thoracentesis; however when family was explained but risks/benefits/alternatives, they did not want a pursue invasive treatment. Patient also had cocci positive IgM; moreover, was started on fluconazole. Patient also developed atrial fibrillation during the hospitalization; moreover, cardiology was consulted and the recommendation was to continue patient on diltiazem. Patient status, continued to worsen and she could not eat or take p.o. medications; moreover, all medications were switched to IV formulation. Patient's prognosis remains guarded but she continues to be treated with IV antifungals, IV antibiotics, heparin drip. Ultimately, on 12/27 patient's family decided to make the patient comfort care as the prognosis was not good and the patient was not improving on BiPAP. Unfortunately, the patient was pronounced on 12/28/2024 at 7:24 AM as noted in the pronouncement note. Additional Data Confirmation of as documented by pronouncing clinician: no pulse, no respirations, no heart sounds and pupils fixed and dilated Family: contacted Attending/PCP notified?: Yes Attending physician: Benji Healy MD Was code activated?: No (Comfort Care; DNR) Visit Providers Provider Primary care physician: Physician No Primary/Family Consults: 12/18/24 16:45 [facility] Referral - Knowledge Deficit Routine Comment: Positive screening for knowledge deficit needs. 12/21/24 10:27 Consult to Infectious Diseases Routine Comment: Cocci + pneumonia Consulting Provider: Tomi Mackenzie 12/22/24 13:03 Consult to Cardiology Routine Comment: Consulting Provider: Rasta Corona Discharge Plan Plan Patient Disposition: Prescriptions/Referrals Referrals: No Primary/Family,Physician [Primary Care Provider] - Patient/Caregiver Discharge Instructions Print Language: Burkinan
--- NOTE | 2024-12-28 09:09 | ESPR_ITS ---
Subjective Subjective Interval history: see that she passed. called cocci lab. left a message. Exam Vital Signs Temp Pulse Resp BP Pulse Ox O2 Del Method O2 Flow Rate 98.8 F 138 H 12 103/52 L 62 L Nasal Cannula 2 12/28/24 00:00 12/28/24 00:00 12/28/24 00:00 12/28/24 00:00 12/28/24 00:00 12/27/24 16:00 12/27/24 16:00 FiO2 65 12/26/24 15:16 Narrative Exam per notes Objective - Internal Medicine Labs 12/26/24 04:15 12/26/24 04:15 ABG Interpretation ABG results: 12/18/24 12/18/24 12/19/24 14:07 19:24 08:30 ABG pH 7.41 7.38 ABG pCO2 62 H 62 H ABG pO2 52 L* 76 L D ABG HCO3 39 H 37 H ABG O2 Saturation 86 L 95 ABG Base Excess 12 H 9 H VBG pH 7.38 VBG pCO2 71 H VBG pO2 34 VBG Base Excess 13 H 12/19/24 12/21/24 12/21/24 11:08 11:50 17:01 ABG pH 7.30 L 7.32 L ABG pCO2 83 H* D 83 H* ABG pO2 80 L 69 L ABG HCO3 41 H 42 H ABG O2 Saturation 96 93 ABG Base Excess 12 H 13 H VBG pH 7.52 VBG pCO2 45 D VBG pO2 64 H D VBG Base Excess 13 H 12/22/24 12/23/24 12/26/24 07:15 09:45 08:21 ABG pH 7.42 D 7.46 H 7.47 H ABG pCO2 63 H D 66 H 62 H ABG pO2 63 L 45 L* 42 L* ABG HCO3 41 H 47 H 45 H ABG O2 Saturation 93 80 L 88 L ABG Base Excess 14 H 20 H 18 H VBG pH VBG pCO2 VBG pO2 VBG Base Excess 12/26/24 13:44 ABG pH 7.45 ABG pCO2 58 H ABG pO2 72 L D ABG HCO3 40 H ABG O2 Saturation 95 ABG Base Excess 14 H VBG pH VBG pCO2 VBG pO2 VBG Base Excess Assessment & Plan A&P Narrative 89 y/o with effusion and possible pneumonia with a neg procal 2/. had 3d of azithro 500 already. so time to stop that. cocci pos IgM so far. test CF and repeat ID pending at [facility] not yet finalized. she does not get out much so this is more likely an end of life issue than primary cocci changed to all po regimen overall situation noted. Time Spent With Patient Time: Total time spent is greater than 50% in coordination of care (as documented) at patient's floor/unit and/or counseling patient:
--- NOTE | 2024-12-28 09:31 | ESPR_ITS ---
Subjective Subjective Interval history: got a call from the [facility] and cf and cocci Id both neg there so she did not have cocci. note that she also did not get outside Exam Vital Signs Temp Pulse Resp BP Pulse Ox O2 Del Method O2 Flow Rate 98.8 F 138 H 12 103/52 L 62 L Nasal Cannula 2 12/28/24 00:00 12/28/24 00:00 12/28/24 00:00 12/28/24 00:00 12/28/24 00:00 12/27/24 16:00 12/27/24 16:00 FiO2 65 12/26/24 15:16 Objective - Internal Medicine Labs 12/26/24 04:15 12/26/24 04:15 ABG Interpretation ABG results: 12/18/24 12/18/24 12/19/24 14:07 19:24 08:30 ABG pH 7.41 7.38 ABG pCO2 62 H 62 H ABG pO2 52 L* 76 L D ABG HCO3 39 H 37 H ABG O2 Saturation 86 L 95 ABG Base Excess 12 H 9 H VBG pH 7.38 VBG pCO2 71 H VBG pO2 34 VBG Base Excess 13 H 12/19/24 12/21/24 12/21/24 11:08 11:50 17:01 ABG pH 7.30 L 7.32 L ABG pCO2 83 H* D 83 H* ABG pO2 80 L 69 L ABG HCO3 41 H 42 H ABG O2 Saturation 96 93 ABG Base Excess 12 H 13 H VBG pH 7.52 VBG pCO2 45 D VBG pO2 64 H D VBG Base Excess 13 H 12/22/24 12/23/24 12/26/24 07:15 09:45 08:21 ABG pH 7.42 D 7.46 H 7.47 H ABG pCO2 63 H D 66 H 62 H ABG pO2 63 L 45 L* 42 L* ABG HCO3 41 H 47 H 45 H ABG O2 Saturation 93 80 L 88 L ABG Base Excess 14 H 20 H 18 H VBG pH VBG pCO2 VBG pO2 VBG Base Excess 12/26/24 13:44 ABG pH 7.45 ABG pCO2 58 H ABG pO2 72 L D ABG HCO3 40 H ABG O2 Saturation 95 ABG Base Excess 14 H VBG pH VBG pCO2 VBG pO2 VBG Base Excess Assessment & Plan A&P Narrative 89 y/o with effusion and possible pneumonia with a neg procal 2/. had 3d of azithro 500 already. so time to stop that. she does not get out much so this is more likely an end of life issue than primary cocci changed to all po regimen about a week ago overall situation noted. Time Spent With Patient Time: Total time spent is greater than 50% in coordination of care (as documented) at patient's floor/unit and/or counseling patient:
== END 2024-12-28 15:00 | disposition expired | DRG 134 ==
LOC: SERX 08:11 → SERHOLD 12:11 → S2NX 16:17 → S3NX 12-27 20:04
PROVIDERS: Internal Medicine; Internal Medicine Cardiovascular Disease; Internal Medicine Infectious Disease; Student in an Organized Health Care Education/Training Program; Admitting Provider Student in an Organized Health Care Education/Training Program; Emergency Provider Emergency Medicine; Visit Provider Internal Medicine
DX: I26.93 Single subsegmental thrombotic pulmonary embolism without acute cor pulmonale (principal); E78.5 Hyperlipidemia, unspecified; I11.0 Hypertensive heart disease with heart failure; I50.30 Unspecified diastolic (congestive) heart failure; J44.1 Chronic obstructive pulmonary disease with (acute) exacerbation; J15.9 Unspecified bacterial pneumonia; E11.21 Type 2 diabetes mellitus with diabetic nephropathy; E87.4 Mixed disorder of acid-base balance; J44.0 Chronic obstructive pulmonary disease with (acute) lower respiratory infection; F32.A Depression, unspecified; N17.9 Acute kidney failure, unspecified; R45.1 Restlessness and agitation; K56.7 Ileus, unspecified; I47.19 Other supraventricular tachycardia; I46.8 Cardiac arrest due to other underlying condition; I48.92 Unspecified atrial flutter; Z66 Do not resuscitate; E87.5 Hyperkalemia; Z74.01 Bed confinement status; Z99.81 Dependence on supplemental oxygen; I48.0 Paroxysmal atrial fibrillation; J91.8 Pleural effusion in other conditions classified elsewhere; Z90.49 Acquired absence of other specified parts of digestive tract; Z78.1 Physical restraint status; Z11.52 Encounter for screening for COVID-19; Z79.4 Long term (current) use of insulin; Z53.29 Procedure and treatment not carried out because of patient's decision for other reasons; Z79.01 Long term (current) use of anticoagulants; Z51.5 Encounter for palliative care; Z79.899 Other long term (current) drug therapy; Z79.82 Long term (current) use of aspirin
CPT/HCPCS: 36415; 36600; 71045; 71046; 71275; 74018; 76999; 80048; 80053; 81001; 82803; 83036; 83605; 83615; 83735; 83880; 84145; 84443; 84484; 85025; 85610; 85730; 86635; 86803; 87040; 87081; 87400; 87634; 87811; 93005; 93306; 94640; 94644; 94660; 96365; 99285; A4216; A4649; A9270; J0456; J0696; J1120; J1450; J1643; J1644; J1815; J1940; J2060; J2270; J2358; J2470; J3490; J7050; J7512; Q9967; J2359